=== PATIENT | male | born 1960 | race African-American/Black ===

== ENCOUNTER → 2016-05-05 | Outpatient (CLI) | payer MEDICARE, MEDICAID ==
[~2016-05-05] MED LIST: ALBU17AE23; ASP81CT PO; AZIT-21; CATHETER FLUSH 10 ML SYR IV PRN; ENAL10TA PO; ENAL5TAB; ENLP5T; GLBR5T; GLYB5TAB3; GLYB5TAB6 PO; IOHEXOL 350 MG/ML 100 ML (OMNIPAQUE 350) VIAL IV ONE; LORA10TA2 PO; METF-380 PO; MTF500T; MTF500T PO; NS 100 ML (IVPB) BAG IV ONE; OMEG-12 PO; OMEP40CA36 PO; PROM6.25; SIMV20TA3 PO; WARF6TAB PO; WRF1T; WRF1T PO; WRF5T
--- NOTE | 2016-05-05 16:46 | Diagnostic Imaging Report ---
PROCEDURE: CT abdomen and pelvis with contrast. TECHNIQUE: Multiple contiguous axial images were obtained through the abdomen and pelvis after administration of intravenous contrast. INDICATION: Weight loss. Elevated liver enzymes. 100 mL of Omnipaque 350 is administered intravenously. COMPARISON: 06/21/14. FINDINGS: The lung bases demonstrate no significant consolidation, mass or suspicious nodule. The liver demonstrates a low-attenuation lesion measuring 1.2 cm in central location appears similar to prior exams including CTA chest from 2010 compatible with a cyst. The gallbladder demonstrates no calcified stones. There is a question of minimal amount of fluid adjacent to the gallbladder, however. The urinary bladder is mildly dilated. The kidneys, however, demonstrate no hydronephrosis or focal mass. Simple-appearing cysts in the upper pole of the left kidney about 1 cm in size is seen. The pancreas and the spleen appear unremarkable. The adrenal glands appear unremarkable. There is generally minimal amount of omental and mesenteric fat and small amount of subcutaneous fat in the abdomen. There is moderate amount of fecal material seen in the colon may relate to constipation. There is no bowel obstruction. Decompressed small bowel loops are seen. The osseous structures demonstrate fusion of the SI joints. There is bridging syndesmophytes seen in the lower thoracic spine and slightly prominent syndesmophytes laterally seen in the mid lumbar spine. Mild degenerative changes of the hip joints seen. IMPRESSION: 1. No suspicious mass in the abdomen or pelvis or lymphadenopathy. 2. Moderate amount of fecal material seen in the colon suggestive of constipation. 3. There is mild dilatation of the urinary bladder with no focal mass seen. Dictated by: Dictated on workstation # [id number]
== END ==
LOC: RAD 15:56
PROVIDERS: ATTEND Family Medicine
DX: N32.89 Other specified disorders of bladder (principal); K59.00 Constipation, unspecified; R74.8 Abnormal levels of other serum enzymes; R63.4 Abnormal weight loss
CPT/HCPCS: 74177

== ENCOUNTER 2016-05-17 09:49 | Outpatient (RCR) | payer MEDICARE, MEDICAID ==
[2016-03-02 14:56] LABS: BASOPHILS % (AUTO) 0 % (0-10); EOSINOPHILS % (AUTO) 0 % (0-10); LYMPHOCYTES # (AUTO) 1.1 X 10^3 (1.0-4.0); LYMPHOCYTES % (AUTO) 49 % (12-44); MEAN CORPUSCULAR HEMOGLOBIN 33 PG (25-34); MEAN CORPUSCULAR HGB CONC 35 G/DL (32-36); MEAN CORPUSCULAR VOLUME 96 FL (80-99); MEAN PLATELET VOLUME 8.7 FL (7.4-10.4); MONOCYTES # (AUTO) 0.2 X 10^3 (0.0-1.0); MONOCYTES % (AUTO) 9 % (0-12); NEUTROPHILS % (AUTO) 42 % (42-75); PLATELET COUNT 147 10^3/uL (130-400); RED CELL DISTRIBUTION WIDTH 12.7 % (10.0-14.5); WHITE BLOOD COUNT 2.3 10^3/uL (4.3-11.0)
[2016-03-02 15:26] LABS: ALANINE AMINOTRANSFERASE 45 U/L (0-55); ALBUMIN 4.4 G/DL (3.2-4.5); ANION GAP 7 MMOL/L (5-14); ASPARTATE AMINO TRANSFERASE 30 U/L (5-34); BILIRUBIN,TOTAL 0.2 MG/DL (0.1-1.0); BLOOD UREA NITROGEN 35 MG/DL (7-18); BUN/CREATININE RATIO 29; CALCIUM 9.4 MG/DL (8.5-10.1); CARBON DIOXIDE 29 MMOL/L (21-32); CHLORIDE 104 MMOL/L (98-107); CREATININE SERUM 1.19 MG/DL (0.60-1.30); GFR ESTIMATED > 60; GLUCOSE 102 MG/DL (70-105); POTASSIUM 4.8 MMOL/L (3.6-5.0); SODIUM 140 MMOL/L (135-145); TOTAL PROTEIN 6.7 G/DL (6.4-8.2)
[2016-03-02 16:37] LABS: %SAT TOTAL IRON BINDING CAPIC 24 % (15-50); TIBC 294 ug/dL (280-380)
[2016-03-03 06:35] LABS: FERRITIN 85 ng/mL (25-300); UIBC 222 ug/dL (55-450)
[2016-04-27 14:52] LABS: BASOPHILS % (AUTO) 0 % (0-10); EOSINOPHILS % (AUTO) 1 % (0-10); LYMPHOCYTES % (AUTO) 48 % (12-44); MEAN CORPUSCULAR HEMOGLOBIN 33 PG (25-34); MEAN CORPUSCULAR HGB CONC 34 G/DL (32-36); MEAN CORPUSCULAR VOLUME 97 FL (80-99); MEAN PLATELET VOLUME 8.8 FL (7.4-10.4); MONOCYTES # (AUTO) 0.2 X 10^3 (0.0-1.0); MONOCYTES % (AUTO) 11 % (0-12); NEUTROPHILS # (AUTO) 0.9 X 10^3 (1.8-7.8); NEUTROPHILS % (AUTO) 40 % (42-75); PLATELET COUNT 116 10^3/uL (130-400); RED BLOOD COUNT 3.78 10^6/uL (4.35-5.85); RED CELL DISTRIBUTION WIDTH 12.7 % (10.0-14.5); WHITE BLOOD COUNT 2.1 10^3/uL (4.3-11.0)
[2016-04-27 15:20] LABS: ALANINE AMINOTRANSFERASE 130 U/L (0-55); ALBUMIN 4.2 G/DL (3.2-4.5); ANION GAP 8 MMOL/L (5-14); ASPARTATE AMINO TRANSFERASE 113 U/L (5-34); BILIRUBIN,TOTAL 0.4 MG/DL (0.1-1.0); BLOOD UREA NITROGEN 19 MG/DL (7-18); BUN/CREATININE RATIO 17; CALCIUM 8.8 MG/DL (8.5-10.1); CARBON DIOXIDE 27 MMOL/L (21-32); CHLORIDE 102 MMOL/L (98-107); GFR ESTIMATED > 60; GLUCOSE 103 MG/DL (70-105); POTASSIUM 4.4 MMOL/L (3.6-5.0); SODIUM 137 MMOL/L (135-145); TOTAL PROTEIN 6.5 G/DL (6.4-8.2)
[2016-04-27 15:41] LABS: THYROID STIMULATING HORMONE 0.87 UIU/ML (0.35-4.94)
[2016-05-04 13:47] LABS: BASOPHILS % (AUTO) 1 % (0-10); EOSINOPHILS % (AUTO) 1 % (0-10); LYMPHOCYTES # (AUTO) 1.1 X 10^3 (1.0-4.0); LYMPHOCYTES % (AUTO) 50 % (12-44); MEAN CORPUSCULAR HEMOGLOBIN 33 PG (25-34); MEAN CORPUSCULAR HGB CONC 34 G/DL (32-36); MEAN CORPUSCULAR VOLUME 96 FL (80-99); MEAN PLATELET VOLUME 8.8 FL (7.4-10.4); MONOCYTES # (AUTO) 0.3 X 10^3 (0.0-1.0); MONOCYTES % (AUTO) 12 % (0-12); NEUTROPHILS # (AUTO) 0.8 X 10^3 (1.8-7.8); NEUTROPHILS % (AUTO) 36 % (42-75); PLATELET COUNT 136 10^3/uL (130-400); RED BLOOD COUNT 3.84 10^6/uL (4.35-5.85); RED CELL DISTRIBUTION WIDTH 12.9 % (10.0-14.5); RETICULOCYTE % 0.51 % (0.50-2.40); WHITE BLOOD COUNT 2.1 10^3/uL (4.3-11.0)
[2016-05-04 14:21] LABS: BAND NEUTROPHILS 5 %; LYMPHOCYTES % (MANUAL) 47 %; NEUTROPHILS % (MANUAL) 29 %
[2016-05-04 14:22] LABS: BASOPHILS % (MANUAL) 0 %; EOSINOPHILS % (MANUAL) 4 %; POIKILOCYTOSIS SLIGHT; REACTIVE LYMPHOCYTES 2 %
[~2016-05-17 09:49] MED LIST changes: -CATHETER FLUSH 10 ML SYR IV PRN; -IOHEXOL 350 MG/ML 100 ML (OMNIPAQUE 350) VIAL IV ONE; -NS 100 ML (IVPB) BAG IV ONE
== END 2016-05-31 | disposition home or self-care (01) ==
LOC: ONC 09:49
PROVIDERS: ATTEND Internal Medicine Hematology & Oncology
DX: D64.9 Anemia, unspecified (principal); D72.819 Decreased white blood cell count, unspecified; F70 Mild intellectual disabilities; I10 Essential (primary) hypertension; E11.9 Type 2 diabetes mellitus without complications; J44.9 Chronic obstructive pulmonary disease, unspecified; Z86.718 Personal history of other venous thrombosis and embolism; Z86.711 Personal history of pulmonary embolism; Z79.82 Long term (current) use of aspirin
CPT/HCPCS: 36415; 38221; 80053; 82728; 83540; 84443; 85007; 85025; 85027; 85045; 88184; 88185; 88237; 88264; 88280; 88305; 88311; 88313; 99213

== ENCOUNTER 2016-06-14 09:04 | Outpatient (RCR) | payer MEDICARE, MEDICAID ==
[2016-06-14 09:31] LABS: BASOPHILS % (AUTO) 0 % (0-10); EOSINOPHILS % (AUTO) 1 % (0-10); LYMPHOCYTES % (AUTO) 46 % (12-44); MEAN CORPUSCULAR HGB CONC 34 G/DL (32-36); MEAN CORPUSCULAR VOLUME 97 FL (80-99); MEAN PLATELET VOLUME 8.1 FL (7.4-10.4); MONOCYTES # (AUTO) 0.3 X 10^3 (0.0-1.0); MONOCYTES % (AUTO) 12 % (0-12); NEUTROPHILS # (AUTO) 0.9 X 10^3 (1.8-7.8); NEUTROPHILS % (AUTO) 42 % (42-75); PLATELET COUNT 137 10^3/uL (130-400); RED BLOOD COUNT 3.88 10^6/uL (4.35-5.85); RED CELL DISTRIBUTION WIDTH 12.6 % (10.0-14.5); RETICULOCYTE % 0.52 % (0.50-2.40); WHITE BLOOD COUNT 2.1 10^3/uL (4.3-11.0)
[2016-06-14 09:32] LABS: MEAN CORPUSCULAR HEMOGLOBIN 32 PG (25-34)
[2016-06-14 10:08] LABS: ALANINE AMINOTRANSFERASE 26 U/L (0-55); ALBUMIN 4.1 G/DL (3.2-4.5); ANION GAP 7 MMOL/L (5-14); ASPARTATE AMINO TRANSFERASE 17 U/L (5-34); BILIRUBIN,TOTAL 0.4 MG/DL (0.1-1.0); BLOOD UREA NITROGEN 23 MG/DL (7-18); BUN/CREATININE RATIO 19; CALCIUM 9.4 MG/DL (8.5-10.1); CARBON DIOXIDE 30 MMOL/L (21-32); CHLORIDE 104 MMOL/L (98-107); CREATININE SERUM 1.22 MG/DL (0.60-1.30); GFR ESTIMATED > 60; GLUCOSE 149 MG/DL (70-105); POTASSIUM 4.5 MMOL/L (3.6-5.0); SODIUM 141 MMOL/L (135-145); TOTAL PROTEIN 6.6 G/DL (6.4-8.2)
== END 2016-09-12 | disposition home or self-care (01) ==
LOC: ONC 09:04
PROVIDERS: ATTEND Internal Medicine Hematology & Oncology
DX: D61.818 Other pancytopenia (principal); F70 Mild intellectual disabilities; I10 Essential (primary) hypertension; E11.9 Type 2 diabetes mellitus without complications; J44.9 Chronic obstructive pulmonary disease, unspecified; Z86.718 Personal history of other venous thrombosis and embolism; Z86.711 Personal history of pulmonary embolism; Z79.82 Long term (current) use of aspirin
CPT/HCPCS: 36415; 80053; 82728; 83540; 85025; 85045; 86038; 99213

== ENCOUNTER 2016-09-06 10:15 | Outpatient (RCR) | payer MEDICARE, MEDICAID ==
[2016-09-06 10:24] LABS: BASOPHILS % (AUTO) 0 % (0-10); EOSINOPHILS % (AUTO) 0 % (0-10); LYMPHOCYTES # (AUTO) 1.2 X 10^3 (1.0-4.0); LYMPHOCYTES % (AUTO) 42 % (12-44); MEAN CORPUSCULAR HEMOGLOBIN 32 PG (25-34); MEAN CORPUSCULAR HGB CONC 34 G/DL (32-36); MEAN CORPUSCULAR VOLUME 96 FL (80-99); MEAN PLATELET VOLUME 8.5 FL (7.4-10.4); MONOCYTES # (AUTO) 0.2 X 10^3 (0.0-1.0); MONOCYTES % (AUTO) 8 % (0-12); NEUTROPHILS # (AUTO) 1.4 X 10^3 (1.8-7.8); NEUTROPHILS % (AUTO) 50 % (42-75); PLATELET COUNT 143 10^3/uL (130-400); RED BLOOD COUNT 4.07 10^6/uL (4.35-5.85); RED CELL DISTRIBUTION WIDTH 12.6 % (10.0-14.5); RETICULOCYTE % 0.63 % (0.50-2.40); WHITE BLOOD COUNT 2.8 10^3/uL (4.3-11.0)
[2016-09-06 11:19] LABS: ALANINE AMINOTRANSFERASE 20 U/L (0-55); ALBUMIN 4.2 GM/DL (3.2-4.5); ANION GAP 8 MMOL/L (5-14); ASPARTATE AMINO TRANSFERASE 19 U/L (5-34); BILIRUBIN,TOTAL 0.3 MG/DL (0.1-1.0); BLOOD UREA NITROGEN 26 MG/DL (7-18); BUN/CREATININE RATIO 22; CALCIUM 9.6 MG/DL (8.5-10.1); CARBON DIOXIDE 28 MMOL/L (21-32); CHLORIDE 106 MMOL/L (98-107); CREATININE SERUM 1.17 MG/DL (0.60-1.30); GFR ESTIMATED > 60; GLUCOSE 66 MG/DL (70-105); POTASSIUM 4.6 MMOL/L (3.6-5.0); SODIUM 142 MMOL/L (135-145); TOTAL PROTEIN 7.1 GM/DL (6.4-8.2)
== END 2016-11-20 | disposition home or self-care (01) ==
LOC: ONC 10:15
PROVIDERS: ATTEND Internal Medicine Hematology & Oncology
DX: Z86.718 Personal history of other venous thrombosis and embolism; I10 Essential (primary) hypertension; Z86.711 Personal history of pulmonary embolism; Z79.82 Long term (current) use of aspirin; E11.9 Type 2 diabetes mellitus without complications; J44.9 Chronic obstructive pulmonary disease, unspecified; D72.819 Decreased white blood cell count, unspecified; D64.9 Anemia, unspecified; F70 Mild intellectual disabilities
CPT/HCPCS: 36415; 80053; 82728; 83540; 85025; 85045; 99213

== ENCOUNTER 2016-12-09 13:15 | Outpatient (RCR) | payer MEDICARE, MEDICAID ==
[2016-12-09 13:31] LABS: BASOPHILS % (AUTO) 0 % (0-10); EOSINOPHILS % (AUTO) 1 % (0-10); HEMATOCRIT 34 % (40-54); HEMOGLOBIN 11.9 G/DL (13.3-17.7); LYMPHOCYTES # (AUTO) 1.4 X 10^3 (1.0-4.0); LYMPHOCYTES % (AUTO) 61 % (12-44); MEAN CORPUSCULAR HEMOGLOBIN 33 PG (25-34); MEAN CORPUSCULAR HGB CONC 35 G/DL (32-36); MEAN CORPUSCULAR VOLUME 94 FL (80-99); MEAN PLATELET VOLUME 8.7 FL (7.4-10.4); MONOCYTES # (AUTO) 0.2 X 10^3 (0.0-1.0); MONOCYTES % (AUTO) 7 % (0-12); NEUTROPHILS # (AUTO) 0.7 X 10^3 (1.8-7.8); NEUTROPHILS % (AUTO) 32 % (42-75); PLATELET COUNT 140 10^3/uL (130-400); RED BLOOD COUNT 3.64 10^6/uL (4.35-5.85); RED CELL DISTRIBUTION WIDTH 11.8 % (10.0-14.5); WHITE BLOOD COUNT 2.3 10^3/uL (4.3-11.0)
[2016-12-09 13:50] LABS: ALANINE AMINOTRANSFERASE 124 U/L (0-55); ALBUMIN 3.9 GM/DL (3.2-4.5); ALKALINE PHOSPHATASE 80 U/L (40-136); BILIRUBIN,TOTAL 0.4 MG/DL (0.1-1.0); BUN/CREATININE RATIO 20; CALCIUM 8.8 MG/DL (8.5-10.1); CARBON DIOXIDE 30 MMOL/L (21-32); CHLORIDE 96 MMOL/L (98-107); CREATININE SERUM 0.93 MG/DL (0.60-1.30); GFR ESTIMATED > 60; GLUCOSE 116 MG/DL (70-105); POTASSIUM 4.2 MMOL/L (3.6-5.0); SODIUM 130 MMOL/L (135-145); TOTAL PROTEIN 6.5 GM/DL (6.4-8.2)
== END 2017-03-09 | disposition home or self-care (01) ==
LOC: ONC 13:15
PROVIDERS: ATTEND Internal Medicine Hematology & Oncology
DX: D64.9 Anemia, unspecified (principal); D72.819 Decreased white blood cell count, unspecified; F70 Mild intellectual disabilities; I10 Essential (primary) hypertension; E11.9 Type 2 diabetes mellitus without complications; J44.9 Chronic obstructive pulmonary disease, unspecified; Z86.718 Personal history of other venous thrombosis and embolism; Z86.711 Personal history of pulmonary embolism; Z79.82 Long term (current) use of aspirin; Z79.899 Other long term (current) drug therapy
CPT/HCPCS: 80053; 82728; 83540; 85025; 99213

== ENCOUNTER 2017-05-23 13:46 | Emergency (ER) | payer MEDICARE, MEDICAID ==
[~2017-05-23] VITALS: Ht 170.2 cm; Wt 68.0 kg
[2017-05-23] MEDS ORDERED: LIDOCAINE/EPI 2% 1:100,00 (XYLOCAINE) 20 ML VIAL ONE (13:53)
[2017-05-23] MEDS ORDERED: LIDOCAINE 2% 20 ML (XYLOCAINE) VIAL INJ ONE (14:00)
[2017-05-23] MEDS ORDERED: CHLO473M MM (14:06)
--- NOTE | 2017-05-23 14:06 | ED EENT ---
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 Timing/Duration: abrupt, this morning Severity: mild Location: mouth Associated Symptoms: denies symptoms Allergies and Home Medications Allergies Coded Allergies: NKANo Known Allergies (Unverified Allergy, Mild, 04/11/09) Uncoded Allergies: nka (Allergy, Mild, 04/11/09) Home Medications Aspirin 81 Mg Chew, 81 MG PO DAILY, (Reported) Enalapril Maleate 10 Mg Tablet, 10 MG PO DAILY, (Reported) Glyburide 5 Mg Tablet, 5 MG PO DAILY, (Reported) Loratadine 10 Mg Tablet, 10 MG PO DAILY, (Reported) Metformin Hcl 1,000 Mg Tablet, 1,000 MG PO BID, (Reported) Omeprazole 40 Mg Capsule.dr, 40 MG PO DAILY, (Reported) Simvastatin 20 Mg Tablet, 20 MG PO HS, (Reported) Patient Home Medication List Home Medication List Reviewed: Yes Review of Systems Constitutional: see HPI Eyes: No Symptoms Reported Ears: No Symptoms Reported Nose: no symptoms reported Mouth: see HPI, pain Throat: no symptoms reported Respiratory: no symptoms reported Cardiovascular: no symptoms reported Musculoskeletal: no symptoms reported Past Vmubvgu-Gjworg-Qobowy Hx Patient Social History Recent Foreign Travel: No Contact w/Someone Who Travel: No Immunizations Up To Date Date of Pneumonia Vaccine: Jan 29, 2008 Seasonal Allergies Seasonal Allergies: No Respiratory Respiratory Disorders: Pulmonary Embolism Reproductive System Hx Reproductive Disorders: No Endocrine Endocrine Disorders: Diabetes, Non-Insulin dep Family Medical History Significant Family History: Diabetes, Hypertension Physical Exam General Appearance: WD/WN, no apparent distress Eyes: bilateral eye normal inspection, bilateral eye PERRL, bilateral eye EOMI Ears: bilateral ear auricle normal, bilateral ear canal normal, bilateral ear TM normal Mouth/Throat: other (1 of the wires around the back right tooth on his partial has snagged through the undersurface of the right side of the tongue. This was anesthetized with 1% lidocaine with epinephrine and removed with a forceps.) Neck: non-tender, full range of motion Respiratory: no respiratory distress, no accessory muscle use Neurologic/Psychiatric: alert, normal mood/affect, oriented x 3 Skin: normal color, warm/dry Progress/Results/Core Measures Results/Orders My Orders Orders - KAUSHAL WHITING APRN Lidocaine 2% Injection 20 Ml (Xylocaine (05/23/17 14:00) Lidocaine/Epi 2% 1:100,000 (Xylocaine/Ep (05/23/17 13:53) Departure Communication (Admissions) Progress Notes There was no bleeding after the removal of this partial. Impression Impression: Primary Impression: Puncture wound of tongue Disposition: HOME, SELF-CARE Condition: Stable Departure-Patient Inst. Decision time for Depature: 14:05 Referrals: LE GUEVARA DO (PCP/Family) Primary Care Physician Patient Instructions: NO INSTRUCTIONS GIVEN Add. Discharge Instructions: All discharge instructions reviewed with patient and/or family. Voiced understanding. Scripts Chlorhexidine Gluconate (Chlorhexidine Gluconate) 473 Ml Mouthwash 30 ML MM TID, #473 ML Prov: KAUSHAL WHITING APRN 05/23/17 KAUSHAL WHITING APRN May 23, 2017 14:06
[2017-05-23 14:26] VITALS: BP 128/68
== END 2017-05-23 14:26 | disposition home or self-care (01) ==
LOC: EDUNIT# 13:46 → ER 13:48
DX: S01.532A Puncture wound without foreign body of oral cavity, initial encounter (principal); E11.9 Type 2 diabetes mellitus without complications; I10 Essential (primary) hypertension; Z88.1 Allergy status to other antibiotic agents; Z79.82 Long term (current) use of aspirin; Z79.84 Long term (current) use of oral hypoglycemic drugs; Z86.711 Personal history of pulmonary embolism; W26.8XXA Contact with other sharp object(s), not elsewhere classified, initial encounter

== ENCOUNTER 2017-09-07 14:01 | Outpatient (RCR) | payer MEDICARE, MEDICAID ==
[2017-09-07 14:26] LABS: ABSOLUTE RETIC # 41 10e9/L (24-90); BASOPHILS % (AUTO) 0 % (0-10); EOSINOPHILS % (AUTO) 1 % (0-10); HEMATOCRIT 38 % (40-54); HEMOGLOBIN 13.3 G/DL (13.3-17.7); LYMPHOCYTES # (AUTO) 1.7 X 10^3 (1.0-4.0); LYMPHOCYTES % (AUTO) 53 % (12-44); MEAN CORPUSCULAR HEMOGLOBIN 34 PG (25-34); MEAN CORPUSCULAR HGB CONC 35 G/DL (32-36); MEAN CORPUSCULAR VOLUME 97 FL (80-99); MEAN PLATELET VOLUME 9.2 FL (7.4-10.4); MONOCYTES # (AUTO) 0.2 X 10^3 (0.0-1.0); MONOCYTES % (AUTO) 7 % (0-12); NEUTROPHILS # (AUTO) 1.2 X 10^3 (1.8-7.8); NEUTROPHILS % (AUTO) 40 % (42-75); PLATELET COUNT 135 10^3/uL (130-400); RED BLOOD COUNT 3.95 10^6/uL (4.35-5.85); RED CELL DISTRIBUTION WIDTH 12.6 % (10.0-14.5); RETICULOCYTE % 1.04 % (0.50-2.40); WHITE BLOOD COUNT 3.1 10^3/uL (4.3-11.0)
[2017-09-07 14:44] LABS: ALANINE AMINOTRANSFERASE 21 U/L (0-55); ALBUMIN 4.4 GM/DL (3.2-4.5); ALKALINE PHOSPHATASE 57 U/L (40-136); BILIRUBIN,TOTAL 0.4 MG/DL (0.1-1.0); BUN/CREATININE RATIO 28; CALCIUM 9.5 MG/DL (8.5-10.1); CARBON DIOXIDE 29 MMOL/L (21-32); CHLORIDE 104 MMOL/L (98-107); CREATININE SERUM 1.16 MG/DL (0.60-1.30); GFR ESTIMATED > 60; GLUCOSE 117 MG/DL (70-105); POTASSIUM 4.6 MMOL/L (3.6-5.0); SODIUM 140 MMOL/L (135-145); TOTAL PROTEIN 6.9 GM/DL (6.4-8.2)
== END 2017-09-20 | disposition home or self-care (01) ==
LOC: ONC 14:01
PROVIDERS: ATTEND Internal Medicine Hematology & Oncology
DX: D61.818 Other pancytopenia (principal); F70 Mild intellectual disabilities; I10 Essential (primary) hypertension; E11.9 Type 2 diabetes mellitus without complications; J44.9 Chronic obstructive pulmonary disease, unspecified; R79.89 Other specified abnormal findings of blood chemistry; Z86.718 Personal history of other venous thrombosis and embolism; Z86.711 Personal history of pulmonary embolism; Z79.82 Long term (current) use of aspirin; Z79.899 Other long term (current) drug therapy
CPT/HCPCS: 36415; 80053; 85025; 85045; 99213

== ENCOUNTER → 2017-09-07 | Outpatient (CLI) | payer MEDICARE, MEDICAID ==
[~2017-09-07] MED LIST changes: +CHLO473M MM
== END ==
LOC: LAB 14:06
PROVIDERS: ATTEND Internal Medicine Cardiovascular Disease
DX: D64.9 Anemia, unspecified (principal); I10 Essential (primary) hypertension; E78.2 Mixed hyperlipidemia; D72.819 Decreased white blood cell count, unspecified; Z86.718 Personal history of other venous thrombosis and embolism; Z86.711 Personal history of pulmonary embolism

== ENCOUNTER 2018-05-04 14:59 | Outpatient (RCR) | payer MEDICARE, MEDICAID ==
[2018-03-09 15:29] LABS: ABSOLUTE RETIC # 28 10e9/L (24-90); BASOPHILS % (AUTO) 0 % (0-10); EOSINOPHILS % (AUTO) 1 % (0-10); HEMATOCRIT 37 % (40-54); HEMOGLOBIN 12.5 G/DL (13.3-17.7); LYMPHOCYTES # (AUTO) 1.2 X 10^3 (1.0-4.0); LYMPHOCYTES % (AUTO) 46 % (12-44); MEAN CORPUSCULAR HEMOGLOBIN 33 PG (25-34); MEAN CORPUSCULAR HGB CONC 34 G/DL (32-36); MEAN CORPUSCULAR VOLUME 97 FL (80-99); MEAN PLATELET VOLUME 8.8 FL (7.4-10.4); MONOCYTES # (AUTO) 0.2 X 10^3 (0.0-1.0); MONOCYTES % (AUTO) 7 % (0-12); NEUTROPHILS # (AUTO) 1.2 X 10^3 (1.8-7.8); NEUTROPHILS % (AUTO) 46 % (42-75); PLATELET COUNT 139 10^3/uL (130-400); RETICULOCYTE % 0.75 % (0.50-2.40); WHITE BLOOD COUNT 2.6 10^3/uL (4.3-11.0)
[2018-03-09 15:49] LABS: ALANINE AMINOTRANSFERASE 35 U/L (0-55); ALBUMIN 4.1 GM/DL (3.2-4.5); ALKALINE PHOSPHATASE 64 U/L (40-136); BILIRUBIN,TOTAL 0.5 MG/DL (0.1-1.0); BUN/CREATININE RATIO 19; CARBON DIOXIDE 26 MMOL/L (21-32); CHLORIDE 102 MMOL/L (98-107); CREATININE SERUM 1.24 MG/DL (0.60-1.30); GFR ESTIMATED > 60; GLUCOSE 124 MG/DL (70-105); POTASSIUM 4.3 MMOL/L (3.6-5.0); SODIUM 136 MMOL/L (135-145); TOTAL PROTEIN 6.5 GM/DL (6.4-8.2)
[2018-05-04 15:13] LABS: ABSOLUTE RETIC # 37 10e9/L (24-90); BASOPHILS % (AUTO) 0 % (0-10); EOSINOPHILS % (AUTO) 0 % (0-10); HEMATOCRIT 39 % (40-54); HEMOGLOBIN 13.5 G/DL (13.3-17.7); LYMPHOCYTES # (AUTO) 1.5 X 10^3 (1.0-4.0); LYMPHOCYTES % (AUTO) 53 % (12-44); MEAN CORPUSCULAR HEMOGLOBIN 33 PG (25-34); MEAN CORPUSCULAR HGB CONC 34 G/DL (32-36); MEAN CORPUSCULAR VOLUME 96 FL (80-99); MEAN PLATELET VOLUME 8.6 FL (7.4-10.4); MONOCYTES # (AUTO) 0.2 X 10^3 (0.0-1.0); MONOCYTES % (AUTO) 8 % (0-12); NEUTROPHILS # (AUTO) 1.1 X 10^3 (1.8-7.8); NEUTROPHILS % (AUTO) 39 % (42-75); PLATELET COUNT 148 10^3/uL (130-400); RED CELL DISTRIBUTION WIDTH 11.9 % (10.0-14.5); RETICULOCYTE % 0.91 % (0.50-2.40); WHITE BLOOD COUNT 2.8 10^3/uL (4.3-11.0)
[2018-05-04 15:30] LABS: ALANINE AMINOTRANSFERASE 21 U/L (0-55); ALBUMIN 4.4 GM/DL (3.2-4.5); ALKALINE PHOSPHATASE 62 U/L (40-136); BILIRUBIN,TOTAL 0.4 MG/DL (0.1-1.0); BUN/CREATININE RATIO 22; CALCIUM 9.4 MG/DL (8.5-10.1); CARBON DIOXIDE 29 MMOL/L (21-32); CHLORIDE 101 MMOL/L (98-107); CREATININE SERUM 1.18 MG/DL (0.60-1.30); GFR ESTIMATED > 60; GLUCOSE 118 MG/DL (70-105); POTASSIUM 4.5 MMOL/L (3.6-5.0); SODIUM 138 MMOL/L (135-145); TOTAL PROTEIN 6.9 GM/DL (6.4-8.2)
== END 2018-06-07 | disposition home or self-care (01) ==
LOC: ONC 14:59
PROVIDERS: ATTEND Internal Medicine Hematology & Oncology
DX: D61.818 Other pancytopenia (principal); F70 Mild intellectual disabilities; I10 Essential (primary) hypertension; E11.9 Type 2 diabetes mellitus without complications; J44.9 Chronic obstructive pulmonary disease, unspecified; R79.89 Other specified abnormal findings of blood chemistry; Z86.718 Personal history of other venous thrombosis and embolism; Z86.711 Personal history of pulmonary embolism; Z79.82 Long term (current) use of aspirin; Z79.899 Other long term (current) drug therapy
CPT/HCPCS: 36415; 80053; 85025; 85045; 99213

== ENCOUNTER → 2018-07-28 | Outpatient (CLI) | payer MEDICAID, MEDICARE | LOC: CARD 13:44 | PROVIDERS: ATTEND Internal Medicine Cardiovascular Disease | DX: E11.9 Type 2 diabetes mellitus without complications (principal); R06.02 Shortness of breath; I10 Essential (primary) hypertension; I25.3 Aneurysm of heart; Z86.718 Personal history of other venous thrombosis and embolism; Z86.711 Personal history of pulmonary embolism | CPT/HCPCS: 93306 ==

== ENCOUNTER 2018-08-30 14:44 | Outpatient (RCR) | payer MEDICAID, MEDICARE ==
[2018-08-30 15:31] LABS: BASOPHILS % (AUTO) 0 % (0-10); EOSINOPHILS % (AUTO) 1 % (0-10); HEMATOCRIT 41 % (40-54); HEMOGLOBIN 13.8 G/DL (13.3-17.7); LYMPHOCYTES # (AUTO) 1.5 X 10^3 (1.0-4.0); LYMPHOCYTES % (AUTO) 51 % (12-44); MEAN CORPUSCULAR HEMOGLOBIN 33 PG (25-34); MEAN CORPUSCULAR HGB CONC 34 G/DL (32-36); MEAN CORPUSCULAR VOLUME 97 FL (80-99); MEAN PLATELET VOLUME 8.3 FL (7.4-10.4); MONOCYTES # (AUTO) 0.2 X 10^3 (0.0-1.0); MONOCYTES % (AUTO) 7 % (0-12); NEUTROPHILS # (AUTO) 1.2 X 10^3 (1.8-7.8); NEUTROPHILS % (AUTO) 41 % (42-75); PLATELET COUNT 147 10^3/uL (130-400); RED CELL DISTRIBUTION WIDTH 12.8 % (10.0-14.5); WHITE BLOOD COUNT 2.9 10^3/uL (4.3-11.0)
[2018-08-30 15:51] LABS: ALANINE AMINOTRANSFERASE 25 U/L (0-55); ALBUMIN 4.5 GM/DL (3.2-4.5); ALKALINE PHOSPHATASE 62 U/L (40-136); BILIRUBIN,TOTAL 0.3 MG/DL (0.1-1.0); BUN/CREATININE RATIO 27; CALCIUM 9.9 MG/DL (8.5-10.1); CARBON DIOXIDE 28 MMOL/L (21-32); CHLORIDE 104 MMOL/L (98-107); CREATININE SERUM 1.02 MG/DL (0.60-1.30); GFR ESTIMATED > 60; GLUCOSE 107 MG/DL (70-105); POTASSIUM 4.4 MMOL/L (3.6-5.0); SODIUM 142 MMOL/L (135-145); TOTAL PROTEIN 7.1 GM/DL (6.4-8.2)
== END 2018-11-28 | disposition home or self-care (01) ==
LOC: ONC 14:44
PROVIDERS: ATTEND Internal Medicine Hematology & Oncology
DX: D61.818 Other pancytopenia (principal); F70 Mild intellectual disabilities; I10 Essential (primary) hypertension; E11.9 Type 2 diabetes mellitus without complications; J44.9 Chronic obstructive pulmonary disease, unspecified; R79.89 Other specified abnormal findings of blood chemistry; Z86.718 Personal history of other venous thrombosis and embolism; Z86.711 Personal history of pulmonary embolism; Z79.82 Long term (current) use of aspirin; Z79.899 Other long term (current) drug therapy
CPT/HCPCS: 36415; 80053; 85025; 99213

== ENCOUNTER 2018-11-29 14:31 | Outpatient (RCR) | payer MEDICAID ==
[2018-11-29 14:46] LABS: BASOPHILS % (AUTO) 0 % (0-10); EOSINOPHILS % (AUTO) 1 % (0-10); HEMATOCRIT 40 % (40-54); HEMOGLOBIN 13.6 G/DL (13.3-17.7); LYMPHOCYTES # (AUTO) 1.4 X 10^3 (1.0-4.0); LYMPHOCYTES % (AUTO) 48 % (12-44); MEAN CORPUSCULAR HEMOGLOBIN 33 PG (25-34); MEAN CORPUSCULAR HGB CONC 34 G/DL (32-36); MEAN CORPUSCULAR VOLUME 97 FL (80-99); MEAN PLATELET VOLUME 8.8 FL (7.4-10.4); MONOCYTES # (AUTO) 0.2 X 10^3 (0.0-1.0); MONOCYTES % (AUTO) 8 % (0-12); NEUTROPHILS # (AUTO) 1.3 X 10^3 (1.8-7.8); NEUTROPHILS % (AUTO) 44 % (42-75); PLATELET COUNT 140 10^3/uL (130-400); RED CELL DISTRIBUTION WIDTH 13.2 % (10.0-14.5)
[2018-11-29 15:07] LABS: ALANINE AMINOTRANSFERASE 28 U/L (0-55); ALBUMIN 4.4 GM/DL (3.2-4.5); ALKALINE PHOSPHATASE 59 U/L (40-136); BILIRUBIN,TOTAL 0.3 MG/DL (0.1-1.0); BUN/CREATININE RATIO 19; CARBON DIOXIDE 28 MMOL/L (21-32); CHLORIDE 104 MMOL/L (98-107); CREATININE SERUM 1.09 MG/DL (0.60-1.30); GFR ESTIMATED > 60; GLUCOSE 121 MG/DL (70-105); POTASSIUM 4.5 MMOL/L (3.6-5.0); SODIUM 141 MMOL/L (135-145); TOTAL PROTEIN 7.3 GM/DL (6.4-8.2)
[2019-01-25] MEDS ORDERED: OMEP20CA13 PO (11:53)
[2019-02-22] MEDS ORDERED: OMG1KC PO (09:57)
[2019-02-22] MEDS ORDERED: ACET-93 PO (09:57)
[2019-02-22] MEDS ORDERED: MULT-345 PO (09:57)
[2019-02-22] MEDS ORDERED: FE F1CAP9 PO (09:57)
[2019-02-22] MEDS ORDERED: LORA10TA7 PO (09:57)
[2019-02-22] MEDS ORDERED: OMEP40CA36 PO (09:57)
[2019-02-22] MEDS ORDERED: FLUT9.9S NS (09:57)
[2019-02-22] MEDS ORDERED: MAGN400O7 PO (09:57)
[2019-02-22] MEDS ORDERED: ASPI-586 PO (09:57)
== END 2019-02-27 | disposition home or self-care (01) ==
LOC: ONC 14:31
PROVIDERS: ATTEND Internal Medicine Hematology & Oncology
DX: D61.818 Other pancytopenia (principal); F70 Mild intellectual disabilities; I10 Essential (primary) hypertension; E11.9 Type 2 diabetes mellitus without complications; J44.9 Chronic obstructive pulmonary disease, unspecified; D72.819 Decreased white blood cell count, unspecified; R79.89 Other specified abnormal findings of blood chemistry; D64.9 Anemia, unspecified; Z86.718 Personal history of other venous thrombosis and embolism; Z86.711 Personal history of pulmonary embolism; Z79.82 Long term (current) use of aspirin; Z79.899 Other long term (current) drug therapy
CPT/HCPCS: 36415; 80053; 82728; 83540; 85025; 99213

== ENCOUNTER 2019-01-25 08:02 | Emergency (ER) | payer MEDICARE, MEDICAID ==
[~2019-01-25] VITALS: Ht 157 cm; Wt 72.7 kg
[~2019-01-25 08:02] MED LIST changes: -CHLO473M MM; +NFCHLORHGL MM
[2019-01-25] MEDS ORDERED: ASPIRIN 81 MG CHEW (CHILDREN'S ASA) ONE (08:09)
[2019-01-25] MEDS ORDERED: LIDOCAINE 2% VISCOUS 15 ML UDC PO ONE (08:15)
[2019-01-25] MEDS ORDERED: ANTACID SUSP 30 ML UDC (MYLANTA) PO ONE (08:15)
[2019-01-25] MEDS ORDERED: ASPIRIN 81 MG CHEW (CHILDREN'S ASA) PO ONE (08:15)
[2019-01-25 08:19] LABS: BASOPHILS % (AUTO) 0 % (0-10); EOSINOPHILS % (AUTO) 1 % (0-10); HEMATOCRIT 37 % (40-54); HEMOGLOBIN 13.1 G/DL (13.3-17.7); LYMPHOCYTES # (AUTO) 1.2 X 10^3 (1.0-4.0); LYMPHOCYTES % (AUTO) 54 % (12-44); MEAN CORPUSCULAR HEMOGLOBIN 33 PG (25-34); MEAN CORPUSCULAR HGB CONC 35 G/DL (32-36); MEAN CORPUSCULAR VOLUME 94 FL (80-99); MEAN PLATELET VOLUME 8.3 FL (7.4-10.4); MONOCYTES # (AUTO) 0.2 X 10^3 (0.0-1.0); MONOCYTES % (AUTO) 10 % (0-12); NEUTROPHILS # (AUTO) 0.8 X 10^3 (1.8-7.8); NEUTROPHILS % (AUTO) 35 % (42-75); PLATELET COUNT 132 10^3/uL (130-400); RED CELL DISTRIBUTION WIDTH 12.3 % (10.0-14.5); WHITE BLOOD COUNT 2.2 10^3/uL (4.3-11.0)
[2019-01-25 08:28] LABS: PROTHROMBIN TIME PATIENT 13.8 SEC (12.2-14.7)
[2019-01-25 08:33] LABS: ALANINE AMINOTRANSFERASE 25 U/L (0-55); ALKALINE PHOSPHATASE 58 U/L (40-136); BILIRUBIN,TOTAL 0.6 MG/DL (0.1-1.0); BUN/CREATININE RATIO 21; CALCIUM 8.9 MG/DL (8.5-10.1); CARBON DIOXIDE 25 MMOL/L (21-32); CHLORIDE 99 MMOL/L (98-107); CREATININE SERUM 1.06 MG/DL (0.60-1.30); GFR ESTIMATED > 60; GLUCOSE 125 MG/DL (70-105); LIPASE 13 U/L (8-78); MAGNESIUM 1.6 MG/DL (1.6-2.4); POTASSIUM 4.1 MMOL/L (3.6-5.0); SODIUM 135 MMOL/L (135-145); TOTAL PROTEIN 6.3 GM/DL (6.4-8.2)
--- NOTE | 2019-01-25 08:58 | Diagnostic Imaging Report ---
Clinical indications: Patient with chest pain. Comparison: None Procedure: Real-time right lower extremity venous Doppler duplex evaluation is performed from the inguinal region through the popliteal fossa. The calf venous structures are also evaluated. Findings: The deep venous system is well visualized and is easily compressible. There is no evidence of deep venous thrombosis, valvular incompetence, or significant collateral circulation. Impression: There is no ultrasound Doppler evidence of deep venous thrombosis in the right lower extremity. Dictated by: Dictated on workstation # [id number]
--- NOTE | 2019-01-25 09:09 | Diagnostic Imaging Report ---
INDICATION: Chest pain. Portable upright AP view of the chest is obtained. Comparison is made to examination of 06/26/2014. Heart size and pulmonary vascularity are within normal limits. There is no evidence of pneumothorax or consolidation. There is an approximately 1 cm nodular density projecting over lower chest bilaterally. The symmetry suggests nipple shadows. IMPRESSION: No acute abnormality is identified. Subsequent chest radiographs could be performed with nipple markers in place. Dictated by: Dictated on workstation # [id number]
--- NOTE | 2019-01-25 09:30 | ED Chest Pain ---
General Chief Complaint: Chest Pain Stated Complaint: CHEST PAIN Nursing Triage Note: pt presents to ed with complaints of medial chest tightness, lightheadedness, and soa starting at 0700 this am. Nursing Sepsis Screen: No Definite Risk Source: patient, caregiver Exam Limitations: no limitations (INDIO GONZALEZ MD) History of Present Illness Date Seen by Provider: Jan 25, 2019 Time Seen by Provider: 09:25 Initial Comments The patient is a 58-year-old black male known to me from previous contact in the emergency room. He lives in a shelter as he is intellectually challenged. This morning he got up and told his supervisors that he felt dizzy and had chest pain. He has a rather considerable chart on the basis of long-standing neutropenia. He has also been worked up for chest pain and pulmonary embolus without definitive findings. He reports that he continues to have pain here after arrival. He looks calm and collected. He is a vague historian. Timing/Duration: 1-3 hours Severity/Quality: mild, moderate Location: central Activities at Onset: none Modifying Factors: improves with antacids, improves with coughing Associated Symptoms: dizziness, shortness of breath (INDIO GONZALEZ MD) Allergies and Home Medications Allergies Coded Allergies: NKANo Known Allergies (Unverified Allergy, Mild, 04/11/09) Uncoded Allergies: nka (Allergy, Mild, 04/11/09) Home Medications Aspirin 81 Mg Chew, 81 MG PO DAILY, (Reported) Chlorhexidine Gluconate 473 Ml Mouthwash, 30 ML MM TID Prescribed by: KAUSHAL WHITING on 05/23/17 1406 Enalapril Maleate 10 Mg Tablet, 10 MG PO DAILY, (Reported) Glyburide 5 Mg Tablet, 5 MG PO DAILY, (Reported) Loratadine 10 Mg Tablet, 10 MG PO DAILY, (Reported) Metformin Hcl 1,000 Mg Tablet, 1,000 MG PO BID, (Reported) Omeprazole 40 Mg Capsule.dr, 40 MG PO DAILY, (Reported) Simvastatin 20 Mg Tablet, 20 MG PO HS, (Reported) Patient Home Medication List Home Medication List Reviewed: Yes (PATRICIA DURHAM MD) Review of Systems Review of Systems Constitutional: see HPI Respiratory: Cough, Shortness of Air Cardiovascular: See HPI, Chest Pain Gastrointestinal: No Symptoms Reported Musculoskeletal: other (leg pain more so on the right) Skin: no symptoms reported Psychiatric/Neurological: No Symptoms Reported Endocrine: No Symptoms Reported (INDIO GONZALEZ MD) Past Lnvtrmy-Aunpok-Emwczm Hx Patient Social History Alcohol Use: Denies Use Recreational Drug Use: No Smoking Status: Former Smoker Former Smoker, Quit: Feb 11, 2015 Recent Foreign Travel: No Contact w/Someone Who Travel: No Recent Infectious Disease Expo: No Recent Hopitalizations: No Physical Abuse: No Sexual Abuse: No Mistreated: No Fear: No (INDIO GONZALEZ MD) Immunizations Up To Date Date of Pneumonia Vaccine: Jan 29, 2008 (INDIO GONZALEZ MD) Seasonal Allergies Seasonal Allergies: No (INDIO GONZALEZ MD) Past Medical History Surgeries: No (unk) Respiratory: Yes Pulmonary Embolism Cardiac: Yes Hypertension Neurological: No Reproductive Disorders: No Genitourinary: No Gastrointestinal: Yes Gastroesophageal Reflux Musculoskeletal: No Endocrine: Yes Diabetes, Non-Insulin dep Cancer: No Psychosocial: No Integumentary: No Blood Disorders: Yes (anemia) (INDIO GONZALEZ MD) Family Medical History Diabetes, Hypertension (INDIO GONZALEZ MD) Physical Exam Vital Signs Vital Signs - First Documented 01/25/19 08:14 Temp 36.4 Pulse 62 Resp 20 B/P (MAP) 127/80 (96) Pulse Ox 100 O2 Delivery Room Air (PATRICIA DURHAM MD) Vital Signs Capillary Refill : Less Than 3 Seconds (INDIO GONZALEZ MD) Height, Weight, BMI Height: 5'7.00" Weight: 150lbs. oz. 68.008240aw; 29.00 BMI Method:Stated General Appearance: No Apparent Distress, WD/WN HEENT: Normal ENT Inspection Neck: Normal Inspection Respiratory: Chest Non Tender, Lungs Clear, Normal Breath Sounds, No Accessory Muscle Use, No Respiratory Distress Cardiovascular: Regular Rate, Rhythm, No Edema, No Gallop, No JVD, No Murmur, Normal Peripheral Pulses Gastrointestinal: Normal Bowel Sounds, No Organomegaly, No Pulsatile Mass, Non Tender Extremity: Normal Capillary Refill, Normal Inspection, Normal Range of Motion, Non Tender, No Calf Tenderness, No Pedal Edema Neurologic/Psychiatric: Alert, Oriented x3, No Motor/Sensory Deficits, Normal Mood/Affect Skin: Normal Color, Warm/Dry Lymphatic: No Adenopathy (INDIO GONZALEZ MD) Progress/Results/Core Measures Results/Orders Lab Results Laboratory Tests Test 01/25/19 08:09 01/25/19 10:54 Range/Units White Blood Count 2.2 L 4.3-11.0 10^3/uL Red Blood Count 3.97 L 4.35-5.85 10^6/uL Hemoglobin 13.1 L 13.3-17.7 G/DL Hematocrit 37 L 40-54 % Mean Corpuscular Volume 94 80-99 FL Mean Corpuscular Hemoglobin 33 25-34 PG Mean Corpuscular Hemoglobin Concent 35 32-36 G/DL Red Cell Distribution Width 12.3 10.0-14.5 % Platelet Count 132 130-400 10^3/uL Mean Platelet Volume 8.3 7.4-10.4 FL Neutrophils (%) (Auto) 35 L 42-75 % Lymphocytes (%) (Auto) 54 H 12-44 % Monocytes (%) (Auto) 10 0-12 % Eosinophils (%) (Auto) 1 0-10 % Basophils (%) (Auto) 0 0-10 % Neutrophils # (Auto) 0.8 L 1.8-7.8 X 10^3 Lymphocytes # (Auto) 1.2 1.0-4.0 X 10^3 Monocytes # (Auto) 0.2 0.0-1.0 X 10^3 Eosinophils # (Auto) 0.0 0.0-0.3 10^3/uL Basophils # (Auto) 0.0 0.0-0.1 10^3/uL Prothrombin Time 13.8 12.2-14.7 SEC INR Comment 1.0 0.8-1.4 Activated Partial Thromboplast Time 39 H 24-35 SEC D-Dimer < 0.27 0.00-0.49 UG/ML Sodium Level 135 135-145 MMOL/L Potassium Level 4.1 3.6-5.0 MMOL/L Chloride Level 99 98-107 MMOL/L Carbon Dioxide Level 25 21-32 MMOL/L Anion Gap 11 5-14 MMOL/L Blood Urea Nitrogen 22 H 7-18 MG/DL Creatinine 1.06 0.60-1.30 MG/DL Estimat Glomerular Filtration Rate > 60 BUN/Creatinine Ratio 21 Glucose Level 125 H 70-105 MG/DL Calcium Level 8.9 8.5-10.1 MG/DL Corrected Calcium 8.9 8.5-10.1 MG/DL Magnesium Level 1.6 1.6-2.4 MG/DL Total Bilirubin 0.6 0.1-1.0 MG/DL Aspartate Amino Transf (AST/SGOT) 23 5-34 U/L Alanine Aminotransferase (ALT/SGPT) 25 0-55 U/L Alkaline Phosphatase 58 40-136 U/L Myoglobin 47.2 10.0-92.0 NG/ML Troponin I < 0.028 < 0.028 <0.028 NG/ML Total Protein 6.3 L 6.4-8.2 GM/DL Albumin 4.0 3.2-4.5 GM/DL Lipase 13 8-78 U/L (PATRICIA DURHAM MD) My Orders Orders - PATRICIA DURHAM MD Aspirin Chewable Tablet (Baby Aspirin Ch (01/25/19 08:09) Lidocaine 2% Viscous 15 Ml (Xylocaine Vi (01/25/19 08:15) Antacid Suspension (Mylanta Suspension (01/25/19 08:15) Cbc With Automated Diff (01/25/19 08:09) Magnesium (01/25/19 08:09) Chest 1 View, Ap/Pa Only (01/25/19 08:09) Ekg Tracing (01/25/19 08:09) Comprehensive Metabolic Panel (01/25/19 08:09) Myoglobin Serum (01/25/19 08:09) Protime With Inr (01/25/19 08:09) Partial Thromboplastin Time (01/25/19 08:09) O2 (01/25/19 08:09) Monitor-Rhythm Ecg Trace Only (01/25/19 08:09) Lipid Panel (01/26/19 06:00) Ed Iv/Invasive Line Start (01/25/19 08:09) Lipase (01/25/19 08:09) Fibrin Degradation Products (01/25/19 08:09) Troponin I (01/25/19 08:09) Aspirin Chewable Tablet (Baby Aspirin Ch (01/25/19 08:15) Us Venous Lower Ext Rt (01/25/19 08:09) Troponin I (01/25/19 10:52) (PATRICIA DURHAM MD) Medications Given in ED Current Medications Medications Dose Ordered Sig/Devan Route Start Time Stop Time Status Last Admin Dose Admin Al Hydrox/Mg Hydrox/Simethicone 30 ml ONCE ONCE PO 01/25/19 08:15 01/25/19 08:16 DC 01/25/19 09:10 30 ML Aspirin 324 mg ONCE ONCE PO 01/25/19 08:15 01/25/19 08:16 DC 01/25/19 08:24 324 MG Lidocaine HCl 15 ml ONCE ONCE PO 01/25/19 08:15 01/25/19 08:16 DC 01/25/19 09:10 15 ML (PATRICIA DURHAM MD) Vital Signs/I&O 01/25/19 01/25/19 08:14 08:14 Temp 36.4 Pulse 62 Resp 20 B/P (MAP) 127/80 (96) Pulse Ox 100 O2 Delivery Room Air (PATRICIA DURHAM MD) Blood Pressure Mean: 96 POS Progress Progress Note : Progress Note Assumed care from Dr. GONZALEZ at 1050: I did see the patient earlier as well. Overall he is doing much better. Repeat troponin was ordered. He has no pain currently. 1145: I did discuss at length with the patient and his care workers. He is still resolved. He was previously on omeprazole for reflux problems and the symptoms more likely to involve that as a concern as the heart stuff seems to be negative at this point. I do believe he needs to follow up with Dr. Guevara for recheck and further evaluation as well as Dr. Huerta. They will set up appointment with Dr. Guevara who can then further consult as needed. I will write for 1 month of omeprazole daily and then Dr. Guevara can decide from there he needs to do more. Discharged home with return precautions. Patient and care workers verbalize understanding instructions and agreement with plan. (PATRICIA DURHAM MD) Diagnostic Imaging Diagonstic Imaging: Xray Plain Films/CT/US/NM/MRI: chest Comments [facility], [facility]. POS [place], [place] POS NAME: RICARDO [facility] REC#: [id number] PT STATUS: REG ER : 1960 PHYSICIAN: PATRICIA DURHAM MD ADMIT DATE: 01/25/19/ER Draft POSDate of Exam:01/25/19 CHEST 1 VIEW, AP/PA ONLY INDICATION: Chest pain. Portable upright AP view of the chest is obtained. Comparison is made to examination of 06/26/2014. Heart size and pulmonary vascularity are within normal limits. There is no evidence of pneumothorax or consolidation. There is an approximately 1 cm nodular density projecting over lower chest bilaterally. The symmetry suggests nipple shadows. IMPRESSION: No acute abnormality is identified. Subsequent chest radiographs could be performed with nipple markers in place. Dictated on workstation # [id number] Dict: 01/25/19 0859 Trans: 01/25/19 0908 CVB [id number] Interpreted by: JOHNATHON LAWLER MD Electronically signed by: Diagonstic Imaging: Ultrasound Plain Films/CT/US/NM/MRI: leg Comments [facility], [facility]. POS [place], [place] POS NAME: RICARDO [facility] REC#: [id number] PT STATUS: REG ER : 1960 PHYSICIAN: PATRICIA DURHAM MD ADMIT DATE: 01/25/19/ER Draft POSDate of Exam:01/25/19 US VENOUS LOWER EXT RT Clinical indications: Patient with chest pain. Comparison: None Procedure: Real-time right lower extremity venous Doppler duplex evaluation is performed from the inguinal region through the popliteal fossa. The calf venous structures are also evaluated. Findings: The deep venous system is well visualized and is easily compressible. There is no evidence of deep venous thrombosis, valvular incompetence, or significant collateral circulation. Impression: There is no ultrasound Doppler evidence of deep venous thrombosis in the right lower extremity. Dictated on workstation # [id number] Dict: 01/25/19 0855 Trans: 01/25/19 0857 CVB [id number] Interpreted by: NASIMA SINCLAIR MD Electronically signed by: (PATRICIA DURHAM MD) Departure Impression Primary Impression: Chest pain Qualified Codes: R07.9 - Chest pain, unspecified Additional Impression: Epigastric abdominal pain Disposition: 01 HOME, SELF-CARE Condition: Improved Departure-Patient Inst. Decision time for Depature: 11:50 (PATRICIA DURHAM MD) Referrals: LE GUEVARA DO (PCP/Family) Primary Care Physician ARLEY HUERTA MD Patient Instructions: Chest Pain (DC), Acute Abdomen (Belly Pain), Adult (DC) Add. Discharge Instructions: All discharge instructions reviewed with patient and/or family. Voiced understanding. Take medications as directed. Follow-up with Dr. Guevara this week for recheck and further evaluation. Follow-up with Dr. Huerta within the next week for recheck and further evaluation. Return for worse pain, fever, vomiting, weakness, breathing problems or other concerns as needed. Scripts Omeprazole (Omeprazole) 20 Mg Capsule. 20 MG PO DAILY for 30 Days, #30 CAP 0 Refills Prov: PATRICIA DURHAM MD 01/25/19 Copy Copies To 1: LE GUEVARA RODNEY K MD Jan 25, 2019 09:30 PATRICIA GREEN MD Jan 25, 2019 10:49 POS
[2019-01-25] MEDS ORDERED: OMEP-280 PO (11:53)
[2019-01-25 12:19] VITALS: BP 131/84
--- OUTSIDE RECORDS SUMMARY | 2019-02-20 05:52 | XMS REPORT ---
Author Author Evelin LEE Organization [facility] Address [address] [place] [address] Care Team Providers Care Surgical Pathologist Name Role Phone MILAD LEE Unavailable PROBLEMS Unknown Problems ALLERGIES No Information ENCOUNTERS Encounter Location Date Diagnosis [facility] [address] [id number] [address] [place] [address] [id number] Sep, Dental examination Z01.20 [facility] [address] [id number] [address] [place] [address] [phone] June, Dental examination Z01.20 [facility] [address] [id number] [address] [place] [address] [id number] June, Dental examination Z01.20 [facility] [address] [id number] [address] [place] [address] [id number] May, Dental examination Z01.20 [facility] [address] [id number] [address] [place] [address] [id number] May, Dental examination Z01.20 [facility] [address] [id number] [address] [place] [address] [id number] Feb, Encounter for dental exam an d cleaning w/o abnormal findings Z01.20 [facility] [address] [id number] [address] [place] [address] [id number] Feb, Dental examination Z01.20 [facility] [address] [id number] [address] [place] [address] [id number] Oct, Encounter for dental examina tion and cleaning without abnormal findings [facility]01[facility] [address] [id number] [phone] Sep, Encounter for dental examination Z01.20 [facility] [address] [id number] [address] [place] [address] [id number] Jul, Encounter for dental examina tion and cleaning without abnormal findings Z01.20 [facility] [address] [id number] [address] [place] [address] [id number] Apr, Encounter for dental examina tion and cleaning without abnormal findings Z01.[address] [id number] [id number] Jan, Dental examination Z01.20 [facility] [address] [id number] [address] [place] [address] [id number] Jan, Encounter for dental examina tion and cleaning without abnormal findings Z01.20 [facility] [address] [id number] [address] [place] [address] [id number] Sep, Encounter for dental examina tion and cleaning without abnormal findings Z01.20 [facility] [address] [id number] [address] [place] [address] [phone] May, Encounter for dental examina tion and cleaning with abnormal findings Z01.[address] [id number] [phone] May, Dental examination Z01.20 IMMUNIZATIONS No Known Immunizations SOCIAL HISTORY Never Assessed REASON FOR VISIT seat partial PLAN OF CARE Activity Details Follow Up prn Reason:CHRIS or adj VITAL SIGNS MEDICATIONS Medication Instructions Dosage Frequency Start Date End Date Duration S min Villeda Active Fish Oil 1000 MG Orally Once a day 1 capsule 24h Active Loratadine 10 MG/10ML Orally Once a day 10 ml 24h Active Omeprazole 40 MG Orally Once a day 1 capsule 24h Active Aspirin Active Benzonatate 200 MG Orally Three times a day 1 capsule 8h Active Simvastatin 20 MG Orally Once a day 1 tablet in the evening 24h Active Ferrous Sulfate 325 MG A ctive Prilosec 40 MG Orally Once a day 1 capsule 24h Active Metformin HCl 500 MG Orally Twice a day 1 tablet with meals 12h Active Enalapril Maleate 10 MG Orally Once a day 1 tablet 24h Active RESULTS No Results PROCEDURES Procedure Date Ordered Result Body Site Dental no charge July 15, 2017 INSTRUCTIONS MEDICATIONS ADMINISTERED No Known Medications MEDICAL (GENERAL) HISTORY Type Description Date Medical History [facility]
--- OUTSIDE RECORDS SUMMARY | 2019-02-20 05:52 | XMS REPORT ---
Author Author Evelin LEE Organization [facility] Address [address] [place] [address] Care Team Providers Care Mixed Crop Farmer Name Role Phone MILAD LEE Unavailable PROBLEMS Unknown Problems ALLERGIES No Known Allergies ENCOUNTERS Encounter Location Date Diagnosis [facility] [address] [id number] [address] [place] [address] [phone] Sep, Dental examination Z01.20 [facility] [address] [id number] [address] [place] [address] [phone] June, Dental examination Z01.20 [facility] [address] [id number] [place] [address] [phone] June, Dental examination Z01.20 [facility] [address] [id number] [address] [place] [address] [phone] May, Dental examination Z01.20 [facility] [address] [id number] [address] [place] [address] [phone] May, Dental examination Z01.20 [facility] [address] [id number] [address] [place] [address] [phone] Feb, Encounter for dental exam an d cleaning w/o abnormal findings Z01.20 [facility] [address] [id number] [address] [place] [address] [phone] Feb, Dental examination Z01.20 [facility] [address] [id number] [address] [place] [address] [phone] Oct, Encounter for dental examina tion and cleaning without abnormal findings [facility]01.20 [facility] [address] [id number] [phone] Sep, Encounter for dental examination Z01.20 [facility] [address] [id number] [address] [place] [address] [phone] Jul, Encounter for dental examina tion and cleaning without abnormal findings Z01.20 [facility] [address] [id number] [address] [place] [address] [phone] Apr, Encounter for dental examina tion and cleaning without abnormal findings Z01.[address] [id number] [place] [phone] Jan, Dental examination Z01.20 [facility] [address] [id number] [address] [place] [address] [phone] Jan, Encounter for dental examina tion and cleaning without abnormal findings Z01.20 [facility] [address] [id number] [address] [place] [address] [phone] Sep, Encounter for dental examina tion and cleaning without abnormal findings Z01.20 [facility] [address] [id number] [address] [place] [address] [phone] May, Encounter for dental examina tion and cleaning with abnormal findings Z01.[address] [id number] [place] [phone] May, Dental examination Z01.20 IMMUNIZATIONS No Known Immunizations SOCIAL HISTORY Never Assessed REASON FOR VISIT TRY IN PLAN OF CARE Activity Details Follow Up 2 Weeks Reason:partial seat VITAL SIGNS MEDICATIONS Medication Instructions Dosage Frequency Start Date End Date Duration S tatus Benzonatate 200 MG Orally Three times a day 1 capsule 8h Active Ferrous Sulfate 325 MG A ctive Simvastatin 20 MG Orally Once a day 1 tablet in the evening 24h Active Fish Oil 1000 MG Orally Once a day 1 capsule 24h Active Prilosec 40 MG Orally Once a day 1 capsule 24h Active Omeprazole 40 MG Orally Once a day 1 capsule 24h Active Flonase Active Aspirin Active Metformin HCl 500 MG Orally Twice a day 1 tablet with meals 12h Active Enalapril Maleate 10 MG Orally Once a day 1 tablet 24h Active Loratadine 10 MG/10ML Orally Once a day 10 ml 24h Active RESULTS No Results PROCEDURES Procedure Date Ordered Result Body Site Dental no charge July 01, 2017 INSTRUCTIONS MEDICATIONS ADMINISTERED No Known Medications MEDICAL (GENERAL) HISTORY Type Description Date Medical History [facility]
--- OUTSIDE RECORDS SUMMARY | 2019-02-20 05:52 | XMS REPORT ---
Author Author Evelin TORREZ Organization [facility] Address [address] [place] [address] Phone Unavailable Care Team Providers Care Kitchen Stewardess Name Role Phone LEO TORREZ Unavailable Unavailable PROBLEMS Unknown Problems ALLERGIES No Known Allergies ENCOUNTERS Encounter Location Date Diagnosis [facility] [address] [id number] [phone] Sep, [facility] [id number] [place] [address] [phone] June, Dental examination Z01.20 [facility] [address] [id number] [place] [address] [phone] June, Dental examination Z01.20 [facility] [address] [id number] [address] [place] [address] [phone] May, Dental examination Z01.20 [facility] [address] [id number] [place] [address] [phone] May, Dental examination Z01.20 [facility] [address] [id number] [place] [address] [phone] Feb, Encounter for dental exam an d cleaning w/o abnormal findings Z01.20 [facility] [address] [id number] [address] [place] [address] [phone] Feb, Dental examination Z01.20 [facility] [address] [id number] [address] [place] [address] [phone] Oct, Encounter for dental examina tion and cleaning without abnormal findings [facility]01.20 [facility] [address] [id number] [phone] Sep, Encounter for dental examination Z01.20 [facility] [address] [id number] [address] [place] [address] [phone] Jul, Encounter for dental examina tion and cleaning without abnormal findings Z01.20 [facility] [address] [id number] [address] [place] [address] [phone] Apr, Encounter for dental examina tion and cleaning without abnormal findings Z01.20 [facility] [address] [id number] [address] [place] [address] [phone] Jan, Encounter for dental examina tion and cleaning without abnormal findings Z01.20 [place] [address] [facility] [address] [id number] [phone] Jan, Dental examination Z01.20 [facility] [address] [id number] [address] [place] [address] [phone] Sep, Encounter for dental examina tion and cleaning without abnormal findings Z01.20 [facility] [address] [id number] [address] [place] [address] [phone] May, Encounter for dental examina tion and cleaning with abnormal findings Z01.21 [facility] [address] [facility] [address] [id number] [phone] May, Dental examination Z01.20 IMMUNIZATIONS No Known Immunizations SOCIAL HISTORY Never Assessed REASON FOR VISIT PLAN OF CARE Activity Details Follow Up prn Reason: VITAL SIGNS MEDICATIONS Medication Instructions Dosage Frequency Start Date End Date Duration S tatus Benzonatate 200 MG Orally Three times a day 1 capsule 8h Active Simvastatin 20 MG Orally Once a day 1 tablet in the evening 24h Active Omeprazole 40 MG Orally Once a day 1 capsule 24h Active Loratadine 10 MG/10ML Orally Once a day 10 ml 24h Active Prilosec 40 MG Orally Once a day 1 capsule 24h Active Ferrous Sulfate 325 MG A ctive Enalapril Maleate 10 MG Orally Once a day 1 tablet 24h Active Fish Oil 1000 MG Orally Once a day 1 capsule 24h Active Metformin HCl 500 MG Orally Twice a day 1 tablet with meals 12h Active Aspirin Active Flonase Active RESULTS No Results PROCEDURES Procedure Date Ordered Result Body Site PROPHYLAXIS - ADULT June 08, 2017 TOPICAL FLUORIDE VARNISH June 08, 2017 INSTRUCTIONS MEDICATIONS ADMINISTERED No Known Medications MEDICAL (GENERAL) HISTORY Type Description Date Medical History [facility]
--- OUTSIDE RECORDS SUMMARY | 2019-02-20 05:52 | XMS REPORT ---
Author Author Evelin SimpsonDIANAJonathan Organization [facility] Address [address] [place] [address] Care Team Providers Care Pump House Technician Name Role Phone LOLLY Simpson Unavailable PROBLEMS Unknown Problems ALLERGIES No Known Allergies ENCOUNTERS Encounter Location Date Diagnosis [facility] [address] [id number] [address] [place] [address] [phone] June, Dental examination Z01.20 [facility] [address] [id number] [address] [place] [address] [phone] June, Dental examination Z01.20 [facility] [address] [id number] [place] [address] [phone] May, Dental examination Z01.20 [facility] [address] [id number] [address] [place] [address] [phone] May, Dental examination Z01.20 [facility] [address] [id number] [address] [place] [address] [phone] Feb, Encounter for dental exam an d cleaning w/o abnormal findings Z01.20 [facility] [address] [id number] [address] [place] [address] [phone] Feb, Dental examination Z01.20 [facility] [address] [id number] [address] [place] [address] [phone] Oct, Encounter for dental examina tion and cleaning without abnormal findings Z01.20 [facility] [address] [id number] [phone] Sep, Encounter for dental examination Z01.20 [facility] [address] [id number] [address] [place] [address] [phone] Jul, Encounter for dental examina tion and cleaning without abnormal findings Z01.20 [facility] [address] [id number] [address] [place] [address] [phone] Apr, Encounter for dental examina tion and cleaning without abnormal findings Z01.20 [facility] [address] [id number] [place] [phone] Jan, Dental examination Z01.20 [facility] [address] [id number] [address] [place] [address] [phone] Jan, Encounter for dental examina tion and cleaning without abnormal findings Z01.20 [facility] [address] [id number] [address] [place] [address] [phone] Sep, Encounter for dental examina tion and cleaning without abnormal findings Z01.20 [facility] [address] [id number] [address] [place] [address] [phone] May, Encounter for dental examina tion and cleaning with abnormal findings Z01.21 [facility] [address] [facility] [id number] [place] [phone] May, Dental examination Z01.20 IMMUNIZATIONS No Known Immunizations SOCIAL HISTORY Never Assessed REASON FOR VISIT PLAN OF CARE Activity Details Follow Up prn Reason: VITAL SIGNS MEDICATIONS Medication Instructions Dosage Frequency Start Date End Date Duration S tatus Ferrous Sulfate 325 MG N ot-Taking Simvastatin 20 MG Orally Once a day 1 tablet in the evening 24h Not-Taking Fish Oil 1000 MG Orally Once a day 1 capsule 24h Active Omeprazole 40 MG Orally Once a day 1 capsule 24h Not-Taking Loratadine 10 MG/10ML Orally Once a day 10 ml 24h Active Benzonatate 200 MG Orally Three times a day 1 capsule 8h Not-Taking Aspirin Active Enalapril Maleate 10 MG Orally Once a day 1 tablet 24h Not-Taking Prilosec 40 MG Orally Once a day 1 capsule 24h Active Flonase Active Metformin HCl 500 MG Orally Twice a day 1 tablet with meals 12h Not-Taking RESULTS No Results PROCEDURES Procedure Date Ordered Result Body Site PERIODIC ORAL EXAMINATION Feb 23, 2017 INTRAORL-PERIAPICAL 1 FILM [id number] Feb 23, 2017 INTRAORL-PERIAPICAL 1 FILM [id number] Feb 23, 2017 INTRAORL-PERIAPICAL 1 FILM 26600 Feb 23, 2017 INSTRUCTIONS MEDICATIONS ADMINISTERED No Known Medications MEDICAL (GENERAL) HISTORY Type Description Date Medical History [facility]
--- OUTSIDE RECORDS SUMMARY | 2019-02-20 05:52 | XMS REPORT ---
Author Author Evelin PANCHAL Organization [facility] Address [address] [place] [address] Care Team Providers Care System Support Developer Name Role Phone JOSE CARLOS PANCHAL Unavailable PROBLEMS Unknown Problems ALLERGIES No Known Allergies ENCOUNTERS Encounter Location Date Diagnosis [facility] [address] [id number] [address] [place] [address] [phone] Sep, Dental examination Z01.20 [facility] [address] [id number] [address] [place] [address] [phone] June, Dental examination Z01.20 [facility] [address] [id number] [address] [place] [address] [phone] June, Dental examination Z01.20 [facility] [address] [id number] [address] [place] [address] [phone] May, Dental examination Z01.20 [facility] [address] [id number] [address] [place] [address] [phone] May, Dental examination Z01.20 [facility] [address] [id number] [address] [place] [address] [phone] Feb, Encounter for dental exam an d cleaning w/o abnormal findings Z01.20 [facility] [address] [id number] [address] [place] [address] [phone] Feb, Dental examination Z01.20 [facility] [address] [id number] [address] [place] [address] [phone] Oct, Encounter for dental examina tion and cleaning without abnormal findings Z01.20 [facility] [address] [id number] [place] [phone] Sep, Encounter for dental examination Z01.20 [facility] [address] [id number] [address] [place] [address] [phone] Jul, Encounter for dental examina tion and cleaning without abnormal findings Z01.20 [facility] [address] [id number] [address] [place] [address] [phone] Apr, Encounter for dental examina tion and cleaning without abnormal findings Z01.20 [facility] [address] [id number] [address] [place] [address] [phone] Jan, Encounter for dental examina tion and cleaning without abnormal findings Z01.20 [facility] [address] [facility] [address] [id number] [phone] Jan, Dental examination Z01.20 [facility] [address] [id number] [address] [place] [address] [phone] Sep, Encounter for dental examina tion and cleaning without abnormal findings Z01.20 [facility] [address] [id number] [address] [place] [address] [phone] May, Encounter for dental examina tion and cleaning with abnormal findings Z01.21 [facility] [address] [facility] [facility] [address] [id number] [phone] May, Dental examination Z01.20 IMMUNIZATIONS No Known Immunizations SOCIAL HISTORY Never Assessed REASON FOR VISIT ADULT OUTREACH CLASS [facility] PLAN OF CARE Activity Details Follow Up prn Reason:ON SITE RECALL VITAL SIGNS MEDICATIONS Medication Instructions Dosage Frequency Start Date End Date Duration S tatus Flonase Active Loratadine 10 MG/10ML Orally Once a day 10 ml 24h Active Prilosec 40 MG Orally Once a day 1 capsule 24h Active Enalapril Maleate 10 MG Orally Once a day 1 tablet 24h Active Aspirin Active Fish Oil 1000 MG Orally Once a day 1 capsule 24h Active Omeprazole 40 MG Orally Once a day 1 capsule 24h Active Ferrous Sulfate 325 MG A ctive Benzonatate 200 MG Orally Three times a day 1 capsule 8h Active Metformin HCl 500 MG Orally Twice a day 1 tablet with meals 12h Active Simvastatin 20 MG Orally Once a day 1 tablet in the evening 24h Active RESULTS No Results PROCEDURES Procedure Date Ordered Result Body Site PERIODIC ORAL EXAMINATION Sep 27, 2017 PROPHYLAXIS - ADULT Sep 27, 2017 TOPICAL FLUORIDE VARNISH Sep 27, 2017 INSTRUCTIONS MEDICATIONS ADMINISTERED No Known Medications MEDICAL (GENERAL) HISTORY Type Description Date Medical History [facility]
--- OUTSIDE RECORDS SUMMARY | 2019-02-20 05:52 | XMS REPORT ---
Author Author Evelin LEE Organization [facility] Address [address] [place] [address] Care Team Providers Care Safety And Health Manager Name Role Phone MILAD LEE Unavailable PROBLEMS Unknown Problems ALLERGIES No Known Allergies ENCOUNTERS Encounter Location Date Diagnosis [facility] [address] [id number] [place] [phone] Sep, [facility] [address] [id number] [address] [place] [address] [phone] June, Dental examination Z01.20 [facility] [address] [id number] [address] [place] [address] [phone] June, Dental examination Z01.20 [facility] [address] [id number] [address] [place] [address] [phone] May, Dental examination Z01.20 [facility] [address] [id number] [address] [place] [address] [phone] May, Dental examination Z01.20 [facility] [address] [id number] [address] [place] [address] [phone] Feb, Encounter for dental exam an d cleaning w/o abnormal findings Z01.20 [facility] [address] [id number] [address] [place] [address] [phone] Feb, Dental examination Z01.20 [facility] [address] [id number] [address] [place] [address] [phone] Oct, Encounter for dental examina tion and cleaning without abnormal findings Z01.20 [facility] [address] [id number] [place] [phone] Sep, Encounter for dental examination Z01.20 [facility] [address] [id number] [address] [place] [address] [phone] Jul, Encounter for dental examina tion and cleaning without abnormal findings Z01.20 [facility] [address] [id number] [address] [place] [address] [phone] Apr, Encounter for dental examina tion and cleaning without abnormal findings Z01.20 [facility] [address] [id number] [address] [place] [address] [phone] Jan, Encounter for dental examina tion and cleaning without abnormal findings Z01.20 [facility] [address] [id number] [place] [phone] Jan, Dental examination Z01.20 [facility] [address] [id number] [address] [place] [address] [phone] Sep, Encounter for dental examina tion and cleaning without abnormal findings Z01.20 [facility] [address] [id number] [address] [place] [address] [phone] May, Encounter for dental examina tion and cleaning with abnormal findings [facility]01.21 [facility] [address] [id number] [place] [phone] May, Dental examination Z01.20 IMMUNIZATIONS No Known Immunizations SOCIAL HISTORY Never Assessed REASON FOR VISIT impressions lower partial PLAN OF CARE Activity Details Follow Up prn Reason:try in VITAL SIGNS MEDICATIONS Medication Instructions Dosage Frequency Start Date End Date Duration S tatus Aspirin Active Flonase Active Loratadine 10 MG/10ML Orally Once a day 10 ml 24h Active Prilosec 40 MG Orally Once a day 1 capsule 24h Active Omeprazole 40 MG Orally Once a day 1 capsule 24h Active Fish Oil 1000 MG Orally Once a day 1 capsule 24h Active Metformin HCl 500 MG Orally Twice a day 1 tablet with meals 12h Active Ferrous Sulfate 325 MG A ctive Enalapril Maleate 10 MG Orally Once a day 1 tablet 24h Active Simvastatin 20 MG Orally Once a day 1 tablet in the evening 24h Active Benzonatate 200 MG Orally Three times a day 1 capsule 8h Active RESULTS No Results PROCEDURES Procedure Date Ordered Result Body Site KURT [facility] DENTUR- CAST METL W/RSN June 13, 2017 Billing Notes on claim June 13, 2017 Dental Outreach adjust balance June 13, 2017 INSTRUCTIONS MEDICATIONS ADMINISTERED No Known Medications MEDICAL (GENERAL) HISTORY Type Description Date Medical History [facility]
--- OUTSIDE RECORDS SUMMARY | 2019-02-20 05:52 | XMS REPORT ---
Author Author Evelin TORREZ Organization [facility] Address [address] [place] [address] Phone Unavailable Care Team Providers Care Associate Financial Analyst Name Role Phone LEO TORREZ Unavailable Unavailable PROBLEMS Unknown Problems ALLERGIES No Known Allergies ENCOUNTERS Encounter Location Date Diagnosis [facility] [address] [id number] [place] [address] [phone] Dec, Encounter for prophylactic a dministration of fluoride Z29.3 [facility] [id number] [place] [address] [phone] Sep, Dental examination Z01.20 [facility] [address] [id number] [place] [address] [phone] June, Dental examination Z01.20 [facility] [address] [id number] [place] [address] [phone] June, Dental examination Z01.20 [facility] [address] [id number] [place] [address] [phone] May, Dental examination Z01.20 [facility] [address] [id number] [address] [place] [address] [phone] May, Dental examination Z01.20 [facility] [address] [id number] [address] [place] [address] [phone] Feb, Encounter for dental exam an d cleaning w/o abnormal findings Z01.20 [facility] [address] [id number] [address] [place] [address] [phone] Feb, Dental examination Z01.20 [facility] [address] [id number] [address] [place] [address] [phone] Oct, Encounter for dental examina tion and cleaning without abnormal findings Z01.20 [facility] [address] [id number] [place] [phone] Sep, Encounter for dental examination Z01.20 [facility] [address] [id number] [address] [place] [address] [phone] Jul, Encounter for dental examina tion and cleaning without abnormal findings Z01.20 [facility] [address] [id number] [address] [place] [address] [id number] Apr, Encounter for dental examina tion and cleaning without abnormal findings Z01.[address] [id number] [phone] Jan, Dental examination Z01.20 [facility] [address] [id number] [address] [place] [address] [phone] Jan, Encounter for dental examina tion and cleaning without abnormal findings Z01.20 [facility] [address] [id number] [address] [place] [address] [phone] Sep, Encounter for dental examina tion and cleaning without abnormal findings Z01.20 [facility] [address] [id number] [address] [place] [address] [phone] May, Encounter for dental examina tion and cleaning with abnormal findings Z01.[address] [id number] [phone] May, Dental examination Z01.20 IMMUNIZATIONS No Known Immunizations SOCIAL HISTORY Never Assessed REASON FOR VISIT PLAN OF CARE Activity Details Follow Up 3 Months Reason:on site reca ll VITAL SIGNS MEDICATIONS Medication Instructions Dosage Frequency Start Date End Date Duration S tatus Prilosec 40 MG Orally Once a day 1 capsule 24h Active Fish Oil 1000 MG Orally Once a day 1 capsule 24h Active Benzonatate 200 MG Orally Three times a day 1 capsule 8h Active Metformin HCl 500 MG Orally Twice a day 1 tablet with meals 12h Active Aspirin Active Flonase Active Simvastatin 20 MG Orally Once a day 1 tablet in the evening 24h Active Omeprazole 40 MG Orally Once a day 1 capsule 24h Active Loratadine 10 MG/10ML Orally Once a day 10 ml 24h Active Enalapril Maleate 10 MG Orally Once a day 1 tablet 24h Active Ferrous Sulfate 325 MG A ctive RESULTS No Results PROCEDURES Procedure Date Ordered Result Body Site PROPHYLAXIS - ADULT Jan 17, 2018 TOPICAL FLUORIDE VARNISH Jan 17, 2018 INSTRUCTIONS MEDICATIONS ADMINISTERED No Known Medications MEDICAL (GENERAL) HISTORY Type Description Date Medical History HBP Surgical History No know Surgical history
--- OUTSIDE RECORDS SUMMARY | 2019-02-20 05:52 | XMS REPORT ---
Author Author Evelin LEE Organization [facility] Address [address] [place] [address] Care Team Providers Care Food And Beverage Assistant Manager Name Role Phone MILAD LEE Unavailable PROBLEMS Unknown Problems ALLERGIES Unknown Allergies SOCIAL HISTORY No smoking Hx information available PLAN OF CARE VITAL SIGNS MEDICATIONS Medication Instructions Dosage Frequency Start Date End Date Duration S tatus Flonase Active Aspirin Active RESULTS No Results PROCEDURES Procedure Date Ordered Related Diagnosis Body Site PERIODIC ORAL EXAMINATION Jan 28, 2016 INTRAORL-PERIAPICAL 1 FILM [id number] Jan 28, 2016 INTRAORL-PERIAPICAL 1 FILM 68446 Jan 28, 2016 INTRAORL-PERIAPICAL 1 FILM [id number] Jan 28, 2016 IMMUNIZATIONS No Known Immunizations
--- OUTSIDE RECORDS SUMMARY | 2019-02-20 05:52 | XMS REPORT ---
Author Author Evelin TORREZ Organization [facility] Address [address] [place] [address] Phone Unavailable Care Team Providers Care Automatic I Threading Machine Feeder Name Role Phone LEO TORREZ Unavailable Unavailable PROBLEMS Unknown Problems ALLERGIES No Known Allergies SOCIAL HISTORY Never Assessed PLAN OF CARE VITAL SIGNS MEDICATIONS Medication Instructions Dosage Frequency Start Date End Date Duration S tatus Loratadine 10 MG/10ML Orally Once a day 10 ml 24h Active Simvastatin 20 MG Orally Once a day 1 tablet in the evening 24h Active Benzonatate 200 MG Orally Three times a day 1 capsule 8h Active Ferrous Sulfate 325 MG A ctive Flonase Active Prilosec 40 MG Orally Once a day 1 capsule 24h Active Aspirin Active Fish Oil 1000 MG Orally Once a day 1 capsule 24h Active RESULTS No Results PROCEDURES Procedure Date Ordered Result Body Site PROPHYLAXIS - ADULT April 28, 2016 TOPICAL FLUORIDE VARNISH April 28, 2016 IMMUNIZATIONS No Known Immunizations MEDICAL (GENERAL) HISTORY Type Description Date Medical History HBP
--- OUTSIDE RECORDS SUMMARY | 2019-02-20 05:52 | XMS REPORT ---
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 Role Phone MILAD LEE Unavailable PROBLEMS Unknown Problems ALLERGIES No Information ENCOUNTERS Encounter Location Date Diagnosis [facility] [address] [id number] [place] [address] [phone] June, [facility] [address] [id number] [address] [place] [address] [phone] May, Dental examination Z01.20 [facility] [address] [id number] [place] [address] [phone] May, Dental examination Z01.20 [facility] [address] [id number] [address] [place] [address] [phone] Feb, Encounter for dental exam an d cleaning w/o abnormal findings Z01.20 [facility] [address] [id number] [address] [place] [address] [phone] Feb, Dental examination Z01.20 [facility] [address] [id number] [address] [place] [address] [id number] Oct, Encounter for dental examina tion and cleaning without abnormal findings Z01.20 [facility] [address] [id number] [phone] Sep, Encounter for dental examination Z01.20 [facility] [address] [id number] [address] [place] [address] [id number] Jul, Encounter for dental examina tion and cleaning without abnormal findings Z01.20 [facility] [address] [id number] [address] [place] [address] [phone] Apr, Encounter for dental examina tion and cleaning without abnormal findings Z01.20 [facility] [address] [id number] [place] [phone] Jan, Dental examination Z01.20 [facility] [address] [id number] [address] [place] [address] [phone] Jan, Encounter for dental examina tion and cleaning without abnormal findings Z01.20 [facility] [address] [id number] [address] [place] [address] [phone] Sep, Encounter for dental examina tion and cleaning without abnormal findings Z01.20 [facility] [address] [id number] [address] [place] [address] [phone] May, Encounter for dental examina tion and cleaning with abnormal findings Z01.21 [facility] [address] [id number] [place] [phone] May, Dental examination Z01.20 IMMUNIZATIONS No Known Immunizations SOCIAL HISTORY Never Assessed REASON FOR VISIT ADULT OUTREACH CLASS LTD PLAN OF CARE VITAL SIGNS MEDICATIONS Unknown Medications RESULTS No Results PROCEDURES Procedure Date Ordered Result Body Site PERIODIC ORAL EXAMINATION Oct 20, 2016 INTRAORL-PERIAPICAL 1 FILM [id number] Oct 20, 2016 INTRAORL-PERIAPICAL EA ADD FILM Oct 20, 2016 INTRAORL-PERIAPICAL EA ADD FILM Oct 20, 2016 INTRAORL-PERIAPICAL EA ADD FILM Oct 20, 2016 INSTRUCTIONS MEDICATIONS ADMINISTERED No Known Medications MEDICAL (GENERAL) HISTORY Type Description Date Medical History [facility]
--- OUTSIDE RECORDS SUMMARY | 2019-02-20 05:52 | XMS REPORT ---
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 Phone MILAD LEE CP Unavailable Allergies No Known Allergies Problems Problem Type Condition Code Onset Dates Condition Statu s Assessment Dental examination Z01.20 Active Medications No Known Medications Procedures Procedure Coding System Code Date INTRAORL-PERIAPICAL 1 FILM 36990 CPT-4 D0220 June 18, 2015 INTRAORL-PERIAPICAL EA ADD FILM CPT-4 D0230 June 18, 2015 COMP ORAL EVALUATION - NEW/EST PT CPT-4 D0150 June 18, 2015 INTRAORL-PERIAPICAL EA ADD FILM CPT-4 D0230 June 18, 2015 INTRAORL-PERIAPICAL EA ADD FILM CPT-4 D0230 June 18, 2015 INTRAORL-PERIAPICAL EA ADD FILM CPT-4 D0230 June 18, 2015 Results No Known Results Summary Purpose eClinicalWorks Submission
--- OUTSIDE RECORDS SUMMARY | 2019-02-20 05:53 | XMS REPORT ---
Author Author Evelin TORREZ Organization [employer] Address Unknown Phone Unavailable Care Team Providers Care Vegetable Picker Name Role Phone LEO TORREZ CP Unavailable Allergies, Adverse Reactions, Alerts Substance Reaction Event Type N.K.D.A. Info Not Available Non Drug Allergy Problems Problem Type Condition Code Onset Dates Condition Statu s Assessment Encounter for dental examina tion and cleaning without abnormal findings Z01.20 Active Medications Medication Code System Code Instructions Start Date End Date Status Dosage Ferrous Sulfate [facility] [address]-35 325 MG Orally not defined Enalapril Maleate [facility] [address]-61 10 MG Orally Once a day 1 tablet Loratadine [facility] [address]-33 10 MG/10ML Orally Once a day 10 ml Fish Oil [facility] [address]-85 1000 MG Orally Once a day 1 capsule Prilosec [facility] [address]-61 40 MG Orally Once a day 1 capsule Simvastatin [facility] [address]-50 20 MG Orally Once a day 1 tablet in the evening Omeprazole [facility] [address]-17 40 MG Orally Once a day 1 capsule Procedures Procedure Coding System Code Date TOPICAL FLUORIDE VARNISH CPT-4 D1206 Oct 08, 2015 PROPHYLAXIS - ADULT CPT-4 D1110 Oct 08, 2015 Results No Known Results Summary Purpose eClinicalWorks Submission
--- OUTSIDE RECORDS SUMMARY | 2019-02-20 05:53 | XMS REPORT ---
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 Name Role Phone LEO TORREZ Unavailable Unavailable PROBLEMS Unknown Problems ALLERGIES No Known Allergies ENCOUNTERS Encounter Location Date Diagnosis [facility] [address] [id number] [address] [place] [address] [phone] June, [facility] [address] [id number] [place] [address] [phone] May, Dental examination Z01.20 [facility] [id number] [place] [address] [phone] May, Dental examination Z01.20 [facility] [address] [id number] [place] [address] [phone] Feb, Encounter for dental exam an d cleaning w/o abnormal findings Z01.20 [facility] [address] [id number] [place] [address] [phone] Feb, Dental examination Z01.20 [facility] [address] [id number] [address] [place] [address] [phone] Oct, Encounter for dental examina tion and cleaning without abnormal findings [facility]01.20 [facility] [address] [id number] [phone] Sep, Encounter for dental examination Z01.20 [facility] [address] [id number] [address] [place] [address] [phone] Jul, Encounter for dental examina tion and cleaning without abnormal findings Z01.20 [facility] [address] [id number] [address] [place] [address] [phone] Apr, Encounter for dental examina tion and cleaning without abnormal findings Z01.20 [facility] [address] [id number] [place] [phone] Jan, Dental examination Z01.20 [facility] [address] [id number] [address] [place] [address] [phone] Jan, Encounter for dental examina tion and cleaning without abnormal findings Z01.20 [facility] [address] [id number] [address] [place] [address] [phone] Sep, Encounter for dental examina tion and cleaning without abnormal findings Z01.20 [facility] [address] [id number] [address] [place] [address] [phone] May, Encounter for dental examina tion and cleaning with abnormal findings Z01.21 [facility] [place] [address] [address] [id number] [place] [phone] May, Dental examination Z01.20 IMMUNIZATIONS No Known Immunizations SOCIAL HISTORY Never Assessed REASON FOR VISIT ADULT OUTREACH CLASS [facility] PLAN OF CARE Activity Details Follow Up 3 Months Reason:ON SITE RECA LL VITAL SIGNS MEDICATIONS Medication Instructions Dosage Frequency Start Date End Date Duration S tatus Aspirin Active Loratadine 10 MG/10ML Orally Once a day 10 ml 24h Active Prilosec 40 MG Orally Once a day 1 capsule 24h Active Fish Oil 1000 MG Orally Once a day 1 capsule 24h Active Flonase Active RESULTS No Results PROCEDURES Procedure Date Ordered Result Body Site PROPHYLAXIS - ADULT Oct 27, 2016 TOPICAL FLUORIDE VARNISH Oct 27, 2016 INSTRUCTIONS MEDICATIONS ADMINISTERED No Known Medications MEDICAL (GENERAL) HISTORY Type Description Date Medical History [facility]
--- OUTSIDE RECORDS SUMMARY | 2019-02-20 05:53 | XMS REPORT ---
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 Role Phone LEO TORREZ Unavailable Unavailable PROBLEMS Unknown Problems ALLERGIES No Known Allergies ENCOUNTERS Encounter Location Date Diagnosis [facility] [address] [id number] [address] [place] [address] [phone] June, Dental examination Z01.20 [facility] [address] [id number] [place] [address] [phone] June, Dental examination Z01.20 [facility] [address] [id number] [address] [place] [address] [phone] May, Dental examination Z01.20 [facility] [address] [id number] [address] [place] [address] [phone] May, Dental examination Z01.20 [facility] [address] [id number] [place] [address] [phone] Feb, Encounter for dental exam an d cleaning w/o abnormal findings Z01.20 [facility] [address] [id number] [address] [place] [address] [phone] Feb, Dental examination Z01.20 [facility] [address] [id number] [address] [place] [address] [phone] Oct, Encounter for dental examina tion and cleaning without abnormal findings Z01.20 [facility] [address] [id number] [place] [phone] Sep, Encounter for dental examination Z01.20 [facility] [address] [id number] [address] [place] [address] [phone] Jul, Encounter for dental examina tion and cleaning without abnormal findings Z01.20 [facility] [address] [id number] [address] [place] [address] [id number] Apr, Encounter for dental examina tion and cleaning without abnormal findings Z01.20 [facility] [address] [id number] [address] [place] [address] [phone] Jan, Encounter for dental examina tion and cleaning without abnormal findings Z01.20 [facility] [address] [id number] [phone] Jan, Dental examination Z01.20 [facility] [address] [id number] [address] [place] [address] [phone] Sep, Encounter for dental examina tion and cleaning without abnormal findings Z01.20 [facility] [address] [id number] [address] [place] [address] [phone] May, Encounter for dental examina tion and cleaning with abnormal findings Z01.21 [facility] [address] [facility] [address] [facility] [address] [id number] [phone] May, Dental examination Z01.20 IMMUNIZATIONS No Known Immunizations SOCIAL HISTORY Never Assessed REASON FOR VISIT ADULT OUTREACH CLASS [facility] PLAN OF CARE Activity Details Follow Up 3 Months Reason:ON SITE RECA LL VITAL SIGNS MEDICATIONS Medication Instructions Dosage Frequency Start Date End Date Duration S tatus Flonase Unknown Aspirin Unknown Prilosec 40 MG Orally Once a day 1 capsule 24h Unknown Simvastatin 20 MG Orally Once a day 1 tablet in the evening 24h Unknown Enalapril Maleate 10 MG Orally Once a day 1 tablet 24h Unknown Fish Oil 1000 MG Orally Once a day 1 capsule 24h Unknown Omeprazole 40 MG Orally Once a day 1 capsule 24h Unknown Benzonatate 200 MG Orally Three times a day 1 capsule 8h Unknown Loratadine 10 MG/10ML Orally Once a day 10 ml 24h Unknown Metformin HCl 500 MG Orally Twice a day 1 tablet with meals 12h Unknown Ferrous Sulfate 325 MG U nknown RESULTS No Results PROCEDURES Procedure Date Ordered Result Body Site PROPHYLAXIS - ADULT Feb 23, 2017 TOPICAL FLUORIDE VARNISH Feb 23, 2017 INSTRUCTIONS MEDICATIONS ADMINISTERED No Known Medications MEDICAL (GENERAL) HISTORY Type Description Date Medical History HBP
--- OUTSIDE RECORDS SUMMARY | 2019-02-20 05:53 | XMS REPORT | Continuity of Care Document ---
Author Organization Unknown Address Unknown Phone Unavailable Allergies Active Description Code Type Severity Reaction Onset Reported/Identified Relationship to Patient Clinical Status Yes nka nka Mild N/A 04/11/2009 Yes NKANo Known Allergies NKA Miscellaneous Allergy Mild N/A 04/11/2009 Yes No Known Drug Allergies [id number] Drug Allergy Unknown N/A 02/19/2019 Medications There is no data. Problems Date Dx Coded Attending Type Code Diagnosis Diagnosed By 07/17/2009 Ot V12.51 HX- VENOUS THROMBOSIS EMBOLISM 11/12/2013 QUAN YEPEZ MD Ot 250. 00 DIAB MATT WO COMPL, TYPE II OR UNSPEC TY 11/12/2013 QUAN YEPEZ MD Ot 285. 9 ANEMIA NOS 11/12/2013 QUAN YEPEZ MD Ot 288. 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 9 HYPERTENSION NOS 11/12/2013 QUAN YEPEZ MD Ot 496 CHR AIRWAY OBSTRUCT NEC 11/12/2013 QUAN YEPEZ MD Ot V12. 51 HX-VENOUS THROMBOSIS EMBOLISM 11/12/2013 QUAN YEPEZ MD Ot V12. 55 PERSONAL HISTORY OF PULMONARY EMBOLISM 11/12/2013 QUAN YEPEZ MD Ot V58. 66 LONG-TERM (CURRENT) USE OF ASPIRIN 11/12/2013 QUAN YEPEZ MD Ot V58. 69 OT MED,LT,CURRENT USE 02/17/2014 QUAN YEPEZ MD Ot 250. 00 DIAB MATT WO COMPL, TYPE II OR UNSPEC TY 02/17/2014 QUAN YEPEZ MD Ot 285. 9 ANEMIA NOS 02/17/2014 QUAN YEPEZ MD Ot 288. 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 9 HYPERTENSION NOS 02/17/2014 LUCHO ORTEGA, QUAN Ot 496 CHR AIRWAY OBSTRUCT NEC 02/17/2014 LUCHO ORTEGA, QUAN Ot V12. 51 HX-VENOUS THROMBOSIS EMBOLISM 02/17/2014 LUCHO ORTEGA, QUAN Ot V12. 55 PERSONAL HISTORY OF PULMONARY EMBOLISM 02/17/2014 LUCHO ORTEGA, QUAN Ot V58. 66 LONG-TERM (CURRENT) USE OF ASPIRIN 02/17/2014 LUCHO ORTEGA, QUAN Ot V58. 69 OT MED,LT,CURRENT USE 06/25/2014 LUCHO ORTEGA, QUAN Ot 250. 00 06/25/2014 LUCHO ORTEGA, QUAN Ot 285. 9 06/25/2014 LUCHO ORTEGA, QUAN Ot 288. 50 06/25/2014 LUCHO ORTEGA, QUAN Ot 317 06/25/2014 LUCHO ORTEGA, QUAN Ot 401. 9 06/25/2014 LUCHO ORTEGA, QUAN Ot 496 06/25/2014 LUCHO ORTEGA, QUAN Ot V12. 51 06/25/2014 LUCHO ORTEGA, QUAN Ot V12. 55 06/25/2014 LUCHO ORTEGA, QUAN Ot V58. 66 06/25/2014 LUCHO ORTEGA, QUAN Ot V58. 69 06/27/2014 [facility] Ot 783.21 06/27/2014 GELLENDER DO, LE A Ot 783.21 06/28/2014 GELLENDER DO, LE A Ot 783.21 06/28/2014 GELLENDER DO, LE A Ot 783.21 06/28/2014 GELLENDER DO, LE A Ot 783.21 06/28/2014 GELLENDER DO, LE A Ot 783.21 07/01/2014 GELLENDER DO, LE A Ot 789.01 07/01/2014 GELLENDER DO, LE A Ot 793.11 07/12/2014 LUCHO ORTEGA, QUAN Ot 250. 00 07/12/2014 LUCHO ORTEGA, QUAN Ot 285. 9 07/12/2014 LUCHO ORTEGA, QUAN Ot 288. 50 07/12/2014 LUCHO ORTEGA, QUAN Ot 317 07/12/2014 LUCHO ORTEGA, QUAN Ot 401. 9 07/12/2014 QUAN YEPEZ MD Ot 496 07/12/2014 QUAN YEPEZ MD Ot V12. 51 07/12/2014 QUAN YEPEZ MD Ot V12. 55 07/12/2014 QUAN YEPEZ MD Ot V58. 66 07/12/2014 QUAN YEPEZ MD Ot V58. 69 07/22/2014 GELLENDER DO, LE A Ot 789.01 07/22/2014 GELLENDER DO, LE A Ot 793.11 08/02/2014 GELLENDER DO, LE A Ot 789.01 08/02/2014 GELLENDER DO, LE A Ot 793.11 08/04/2014 QUAN YEPEZ MD Ot 250. 00 DIAB MATT WO COMPL, TYPE II OR UNSPEC TY 08/04/2014 QUAN YEPEZ MD Ot 285. 9 ANEMIA NOS 08/04/2014 QUAN YEPEZ MD Ot 288. 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 9 HYPERTENSION NOS 08/04/2014 QUAN YEPEZ MD Ot 496 CHR AIRWAY OBSTRUCT NEC 08/04/2014 QUAN YEPEZ MD Ot V12. 51 HX-VENOUS THROMBOSIS EMBOLISM 08/04/2014 QUAN YEPEZ MD Ot V12. 55 PERSONAL HISTORY OF PULMONARY EMBOLISM 08/04/2014 QUAN YEPEZ MD Ot V58. 66 LONG-TERM (CURRENT) USE OF ASPIRIN 08/04/2014 QUAN YEPEZ MD Ot V58. 69 OT MED,LT,CURRENT USE 08/16/2014 ARLEY HARDWICK MD Ot 401. 9 08/16/2014 ARLEY HARDWICK MD Ot 780. 2 08/16/2014 ARLEY HARDWICK MD Ot 786. 09 08/16/2014 MULU ORTEGA, ARLEY Chaves Ot 786. 50 08/17/2014 LE GUEVARA DO Ot 783.21 08/19/2014 ARLEY HARDWICK MD Ot 401. 9 08/19/2014 ARLEY HARDWICK MD Ot 780. 2 08/19/2014 ARLEY HARDWICK MD Ot 786. 09 08/19/2014 ARLEY HARDWICK MD Ot 786. 50 09/25/2014 LE GUEVARA DO Ot 783.21 11/04/2014 LUCHO ORTEGA, PATRICIO-ALICE Ot 250. 00 11/04/2014 LUCHO ORTEGA, PATRICIO-ALICE Ot 285. 9 11/04/2014 LUCHO ORTEGA, PATRICIO-ALICE Ot 288. 50 11/04/2014 LUCHO ORTEGA, PATRICIO-ALICE Ot 317 11/04/2014 LUCHO ORTEGA, PATRICIO-ALICE Ot 401. 9 11/04/2014 LUCHO ORTEGA, PATRICIO-ALICE Ot 496 11/04/2014 LUCHO ORTEGA, PATRICIO-ALICE Ot V12. 51 11/04/2014 LUCHO ORTEGA, PATRICIO-ALICE Ot V12. 55 11/04/2014 LUCHO ORTEGA, PATRICIO-ALICE Ot V58. 66 11/04/2014 LUCHO ORTEGA, PATRICIO-ALICE Ot V58. 69 01/20/2015 LUCHO ORTEGA, PATRICIO-ALICE Ot 250. 00 01/20/2015 LUCHO ORTEGA, PATRICIO-ALICE Ot 285. 9 01/20/2015 LUCHO ORTEGA, PATRICIO-ALICE Ot 288. 50 01/20/2015 LUCHO ORTEGA, PATRICIO-ALICE Ot 317 01/20/2015 LUCHO ORTEGA, PATRICIO-ALICE Ot 401. 9 01/20/2015 LUCHO ORTEGA, PATRICIO-ALICE Ot 496 01/20/2015 LUCHO ORTEGA, PATRICIO-ALICE Ot V12. 51 01/20/2015 LUCHO ORTEGA, PATRICIO-ALICE Ot V12. 55 01/20/2015 LUCHO ORTEGA, PATRICIO-ALICE Ot V58. 66 01/20/2015 LUCHO ORTEGA, PATRICIO-ALICE Ot V58. 69 01/30/2015 LUCHO ORTEGA, PATRICIO-ALICE Ot 250. 00 01/30/2015 LUCHO ORTEGA, PATRICIO-ALICE Ot 285. 9 01/30/2015 LUCHO ORTEGA, PATRICIO-ALICE Ot 288. 50 01/30/2015 LUCHO ORTEGA, PATRICIO-ALICE Ot 317 01/30/2015 LUCHO ORTEGA, PATRICIO-ALICE Ot 401. 9 01/30/2015 LUCHO ORTEGA, PATRICIO-ALICE Ot 496 01/30/2015 LUCHO ORTEGA, PATRICIO-ALICE Ot V12. 51 01/30/2015 LUCHO ORTEGA, PATRICIO-ALICE Ot V12. 55 01/30/2015 LUCHO ORTEGA, PATRICIO-ALICE Ot V58. 66 01/30/2015 LUCHO ORTEGA, PATRICIO-ALICE Ot V58. 69 02/05/2015 LUCHO ORTEGA, PATRICIO-ALICE Ot 250. 00 02/05/2015 LUCHO ORTEGA, PATRICIO-ALICE Ot 285. 9 02/05/2015 LUCHO ORTEGA, PATRICIO-ALICE Ot 288. 50 02/05/2015 LUCHO ORTEGA, PATRICIO-ALICE Ot 317 02/05/2015 LUCHO ORTEGA, PATRICIO-ALICE Ot 401. 9 02/05/2015 LUCHO ORTEGA, PATRICIO-ALICE Ot 496 02/05/2015 LUCHO ORTEGA, PATRICIO-ALICE Ot V12. 51 02/05/2015 LUCHO ORTEGA, PATRICIO-ALICE Ot V12. 55 02/05/2015 LUCHO ORTEGA, PATRICIO-ALICE Ot V58. 66 02/05/2015 LUCHO ORTEGA, QUAN Ot V58. 69 03/19/2015 LUCHO ORTEGA, QUAN Ot D64. 9 03/19/2015 LUCHO ORTEGA, QUAN Ot D72.819 03/19/2015 LUCHO ORTEGA, QUAN Ot E11. 9 03/19/2015 LUCHO ORTEGA, QUAN Ot F70 03/19/2015 LUCHO ORTEGA, QUAN Ot I10 03/19/2015 LUCHO ORTEGA, QUAN Ot J44. 9 03/19/2015 LUCHO ORTEGA, QUAN Ot Z79. 82 03/19/2015 LUCHO ORTEGA, QUAN Ot Z86.711 03/19/2015 LUCHO ORTEGA, QUAN Ot Z86.718 05/05/2015 LUCHO ORTEGA, QUAN Samano D64. 9 ANEMIA, UNSPECIFIED 05/05/2015 LUCHO ORTEGA, QUAN Ot D72.819 DECREASED WHITE BLOOD CELL COUNT, UNSPEC 05/05/2015 LUCHO ORTEGA, QUAN Ot E11. 9 TYPE 2 DIABETES MELLITUS WITHOUT COMPLIC 05/05/2015 LUCHO ORTEGA, QUAN Ot F70 MILD INTELLECTUAL DISABILITIES 05/05/2015 LUCHO ORTEGA, QUAN Ot I10 ESSENTIAL (PRIMARY) HYPERTENSION 05/05/2015 LUCHO ORTEGA, QUAN Samano J44. 9 CHRONIC OBSTRUCTIVE PULMONARY DISEASE, U 05/05/2015 LUCHO ORTEGA, QUAN Samano Z79. 82 FPC (CURRENT) USE OF ASPIRIN 05/05/2015 LUCHO ORTEGA, QUAN Samano 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 05/05/2015 QUAN YEPEZ MD Ot Z86.718 PERSONAL HISTORY OF OTHER VENOUS THROMBO 08/01/2015 QUAN YEPEZ MD, Ot D64. 9 ANEMIA, UNSPECIFIED 08/01/2015 QUAN YEPEZ MD Ot D72.819 DECREASED WHITE BLOOD CELL COUNT, UNSPEC 08/01/2015 QUAN YEPEZ MD Ot E11. 9 TYPE 2 DIABETES MELLITUS WITHOUT COMPLIC 08/01/2015 QUAN YEPEZ MD Ot F70 MILD INTELLECTUAL DISABILITIES 08/01/2015 QUAN YEPEZ MD Ot I10 ESSENTIAL (PRIMARY) HYPERTENSION 08/01/2015 QUAN YEPEZ MD, Ot J44. 9 CHRONIC OBSTRUCTIVE PULMONARY DISEASE, U 08/01/2015 QUAN YEPEZ MD, Ot Z79. 82 FPC (CURRENT) USE OF ASPIRIN 08/01/2015 QUAN YEPEZ MD, Ot 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 08/01/2015 QUAN YEPEZ MD, Ot Z86.718 PERSONAL HISTORY OF OTHER VENOUS THROMBO 08/01/2015 QUAN YEPEZ MD, Ot D64. 9 ANEMIA, UNSPECIFIED 08/01/2015 QUAN YEPEZ MD Ot D72.819 DECREASED WHITE BLOOD CELL COUNT, UNSPEC 08/01/2015 QUAN YEPEZ MD, Ot E11. 9 TYPE 2 DIABETES MELLITUS WITHOUT COMPLIC 08/01/2015 QUAN YEPEZ MD, Ot F70 MILD INTELLECTUAL DISABILITIES 08/01/2015 QUAN YEPEZ MD Ot I10 ESSENTIAL (PRIMARY) HYPERTENSION 08/01/2015 QUAN YEPEZ MD, Ot J44. 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 9 ANEMIA, UNSPECIFIED 08/20/2015 QUAN YEPEZ MD Ot D72.819 DECREASED WHITE BLOOD CELL COUNT, UNSPEC 08/20/2015 QUAN YEPEZ MD, Ot E11. 9 TYPE 2 DIABETES MELLITUS WITHOUT COMPLIC 08/20/2015 QUAN YEPEZ MD Ot F70 MILD INTELLECTUAL DISABILITIES 08/20/2015 QUAN YEPEZ MD Ot I10 ESSENTIAL (PRIMARY) HYPERTENSION 08/20/2015 QUAN YEPEZ MD, Ot J44. 9 CHRONIC OBSTRUCTIVE PULMONARY DISEASE, U 08/20/2015 QUAN YEPEZ MD, Ot Z79. 82 FPC (CURRENT) USE OF ASPIRIN 08/20/2015 QUAN YEPEZ MD Ot 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 08/20/2015 QUAN YEPEZ MD, Ot Z86.718 PERSONAL HISTORY OF OTHER VENOUS THROMBO 09/05/2015 QUAN YEPEZ MD, Ot D64. 9 ANEMIA, UNSPECIFIED 09/05/2015 QUAN YEPEZ MD Ot D72.819 DECREASED WHITE BLOOD CELL COUNT, UNSPEC 09/05/2015 QUAN YEPEZ MD, Ot E11. 9 TYPE 2 DIABETES MELLITUS WITHOUT COMPLIC 09/05/2015 QUAN YEPEZ MD, Ot F70 MILD INTELLECTUAL DISABILITIES 09/05/2015 QUAN YEPEZ MD, Ot I10 ESSENTIAL (PRIMARY) HYPERTENSION 09/05/2015 QUAN YEPEZ MD, Ot J44. 9 CHRONIC OBSTRUCTIVE PULMONARY DISEASE, U 09/05/2015 QUAN YEPEZ MD, Ot Z79. 82 FPC (CURRENT) USE OF ASPIRIN 09/05/2015 QUAN YEPEZ MD Ot 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 09/05/2015 QUAN YEPEZ MD Ot Z86.718 PERSONAL HISTORY OF OTHER VENOUS THROMBO 09/12/2015 QUAN YEPEZ MD, Ot D64. 9 ANEMIA, UNSPECIFIED 09/12/2015 QUAN YEPEZ MD Ot D72.819 DECREASED WHITE BLOOD CELL COUNT, UNSPEC 09/12/2015 QUAN YEPEZ MD, Ot E11. 9 TYPE 2 DIABETES MELLITUS WITHOUT COMPLIC 09/12/2015 QUAN YEPEZ MD, Ot F70 MILD INTELLECTUAL DISABILITIES 09/12/2015 QUAN YEPEZ MD Ot I10 ESSENTIAL (PRIMARY) HYPERTENSION 09/12/2015 QUAN YEPEZ MD Ot J44. 9 CHRONIC OBSTRUCTIVE PULMONARY DISEASE, U 09/12/2015 QUAN YEPEZ MD Ot Z79. 82 FPC (CURRENT) USE OF ASPIRIN 09/12/2015 QUAN YEPEZ MD Ot 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 09/12/2015 QUAN YEPEZ MD Ot Z86.718 PERSONAL HISTORY OF OTHER VENOUS THROMBO 04/14/2016 QUAN YEPEZ MD, Ot D64. 9 ANEMIA, UNSPECIFIED 04/14/2016 QUAN YEPEZ MD Ot D72.819 DECREASED WHITE BLOOD CELL COUNT, UNSPEC 04/14/2016 QUAN YEPEZ MD Ot E11. 9 TYPE 2 DIABETES MELLITUS WITHOUT COMPLIC 04/14/2016 QUAN YEPEZ MD Ot F70 MILD INTELLECTUAL DISABILITIES 04/14/2016 QUAN YEPEZ MD Ot I10 ESSENTIAL (PRIMARY) HYPERTENSION 04/14/2016 QUAN YEPEZ MD, Ot J44. 9 CHRONIC OBSTRUCTIVE PULMONARY DISEASE, U 04/14/2016 QUAN YEPEZ MD, Ot Z79. 82 FPC (CURRENT) USE OF ASPIRIN 04/14/2016 QUAN YEPEZ MD, Ot 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 04/14/2016 QUAN YEPEZ MD, Ot Z86.718 PERSONAL HISTORY OF OTHER VENOUS THROMBO 04/21/2016 QUAN YEPEZ MD Ot D64. 9 ANEMIA, UNSPECIFIED 04/21/2016 QUAN YEPEZ MD Ot D72.819 DECREASED WHITE BLOOD CELL COUNT, UNSPEC 04/21/2016 QUAN YEPEZ MD, Ot E11. 9 TYPE 2 DIABETES MELLITUS WITHOUT COMPLIC 04/21/2016 QUAN YEPEZ MD Ot F70 MILD INTELLECTUAL DISABILITIES 04/21/2016 QUAN YEPEZ MD Ot I10 ESSENTIAL (PRIMARY) HYPERTENSION 04/21/2016 QUAN YEPEZ MD, Ot J44. 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 04/21/2016 QUAN YEPEZ MD Ot 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 04/21/2016 QUAN YEPEZ MD, Ot Z86.718 PERSONAL HISTORY OF OTHER VENOUS THROMBO 05/06/2016 GELLENDER DOLE Ot K59.00 CONSTIPATION, UNSPECIFIED 05/06/2016 GELLENDER DOLE Ot N32.89 OTHER SPECIFIED DISORDERS OF BLADDER 05/06/2016 GELLENDER DOLE Ot R63.4 ABNORMAL WEIGHT LOSS 05/06/2016 GELLENLE CARDOZO DO Maggie Ot R74.8 ABNORMAL LEVELS OF OTHER SERUM ENZYMES 05/11/2016 GELLENDER DO, LE Serrano Ot K59.00 CONSTIPATION, UNSPECIFIED 05/11/2016 GELLENDER DO, LE Maggie Ot N32.89 OTHER SPECIFIED DISORDERS OF BLADDER 05/11/2016 GELLENDER DO, LE Serrano Ot R63.4 ABNORMAL WEIGHT LOSS 05/11/2016 GELLENDER DO, LE Maggie Ot R74.8 ABNORMAL LEVELS OF OTHER SERUM ENZYMES 05/26/2016 GELLENDER DO, LE Serrano Ot K59.00 CONSTIPATION, UNSPECIFIED 05/26/2016 GELLENDER DO, LE Maggie Ot N32.89 OTHER SPECIFIED DISORDERS OF BLADDER 05/26/2016 GELLENDER DO, LE Serrano Ot R63.4 ABNORMAL WEIGHT LOSS 05/26/2016 GELLENDER DO, LE Serrano Ot R74.8 ABNORMAL LEVELS OF OTHER SERUM ENZYMES 05/31/2016 QUAN YEPEZ MD Ot D64. 9 ANEMIA, UNSPECIFIED 05/31/2016 QUAN YEPEZ MD Ot D72.819 DECREASED WHITE BLOOD CELL COUNT, UNSPEC 05/31/2016 QUAN YEPEZ MD Ot E11. 9 TYPE 2 DIABETES MELLITUS WITHOUT COMPLIC 05/31/2016 QUAN YEPEZ MD Ot F70 MILD INTELLECTUAL DISABILITIES 05/31/2016 QUAN YEPEZ MD Ot I10 ESSENTIAL (PRIMARY) HYPERTENSION 05/31/2016 QUAN YEPEZ MD Ot J44. 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 9 ANEMIA, UNSPECIFIED 06/11/2016 QUAN YEPEZ MD Ot D72.819 DECREASED WHITE BLOOD CELL COUNT, UNSPEC 06/11/2016 QUAN YEPEZ MD Ot E11. 9 TYPE 2 DIABETES MELLITUS WITHOUT COMPLIC 06/11/2016 QUAN YEPEZ MD Ot F70 MILD INTELLECTUAL DISABILITIES 06/11/2016 QUAN YEPEZ MD Ot I10 ESSENTIAL (PRIMARY) HYPERTENSION 06/11/2016 QUAN YEPEZ MD Ot J44. 9 CHRONIC OBSTRUCTIVE PULMONARY DISEASE, U 06/11/2016 QUAN YEPEZ MD Ot Z79. 82 FPC (CURRENT) USE OF ASPIRIN 06/11/2016 QUAN YEPEZ MD Ot 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 06/11/2016 QUAN YEPEZ MD Ot Z86.718 PERSONAL HISTORY OF OTHER VENOUS THROMBO 06/15/2016 QUAN YEPEZ MD Ot D64. 9 ANEMIA, UNSPECIFIED 06/15/2016 QUAN YEPEZ MD Ot D72.819 DECREASED WHITE BLOOD CELL COUNT, UNSPEC 06/15/2016 QUAN YEPEZ MD, Ot E11. 9 TYPE 2 DIABETES MELLITUS WITHOUT COMPLIC 06/15/2016 QUAN YEPEZ MD Ot F70 MILD INTELLECTUAL DISABILITIES 06/15/2016 QUAN YEPEZ MD Ot I10 ESSENTIAL (PRIMARY) HYPERTENSION 06/15/2016 QUAN YEPEZ MD, Ot J44. 9 CHRONIC OBSTRUCTIVE PULMONARY DISEASE, U 06/15/2016 QUAN YEPEZ MD Ot Z79. 82 FPC (CURRENT) USE OF ASPIRIN 06/15/2016 QUAN YEPEZ MD Ot 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 06/15/2016 QUAN YEPEZ MD Ot Z86.718 PERSONAL HISTORY OF OTHER VENOUS THROMBO 07/14/2016 QUAN YEPEZ MD Ot D64. 9 ANEMIA, UNSPECIFIED 07/14/2016 QUAN YEPEZ MD Ot D72.819 DECREASED WHITE BLOOD CELL COUNT, UNSPEC 07/14/2016 QUAN YEPEZ MD Ot E11. 9 TYPE 2 DIABETES MELLITUS WITHOUT COMPLIC 07/14/2016 QUAN YEPEZ MD Ot F70 MILD INTELLECTUAL DISABILITIES 07/14/2016 QUAN YEPEZ MD Ot I10 ESSENTIAL (PRIMARY) HYPERTENSION 07/14/2016 QUAN YEPEZ MD Ot J44. 9 CHRONIC OBSTRUCTIVE PULMONARY DISEASE, U 07/14/2016 QUAN YEPEZ MD, Ot Z79. 82 FPC (CURRENT) USE OF ASPIRIN 07/14/2016 QUAN YEPEZ MD, Ot 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 07/14/2016 QUAN YEPEZ MD, Ot Z86.718 PERSONAL HISTORY OF OTHER VENOUS THROMBO 07/19/2016 QUAN YEPEZ MD, Ot D64. 9 ANEMIA, UNSPECIFIED 07/19/2016 QUAN YEPEZ MD Ot D72.819 DECREASED WHITE BLOOD CELL COUNT, UNSPEC 07/19/2016 QUAN YEPEZ MD, Ot E11. 9 TYPE 2 DIABETES MELLITUS WITHOUT COMPLIC 07/19/2016 QUAN YEPEZ MD, Ot F70 MILD INTELLECTUAL DISABILITIES 07/19/2016 QUAN YEPEZ MD, Ot I10 ESSENTIAL (PRIMARY) HYPERTENSION 07/19/2016 QUAN YEPEZ MD, Ot J44. 9 CHRONIC OBSTRUCTIVE PULMONARY DISEASE, U 07/19/2016 QUAN YEPEZ MD, Ot Z79. 82 FPC (CURRENT) USE OF ASPIRIN 07/19/2016 QUAN YEPEZ MD, Ot 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 07/19/2016 QUAN YEPEZ MD, Ot Z86.718 PERSONAL HISTORY OF OTHER VENOUS THROMBO 09/07/2016 QUAN YEPEZ MD, Ot D64. 9 ANEMIA, UNSPECIFIED 09/07/2016 QUAN YEPEZ MD Ot D72.819 DECREASED WHITE BLOOD CELL COUNT, UNSPEC 09/07/2016 QUAN YEPEZ MD, Ot E11. 9 TYPE 2 DIABETES MELLITUS WITHOUT COMPLIC 09/07/2016 QUAN YEPEZ MD, Ot F70 MILD INTELLECTUAL DISABILITIES 09/07/2016 QUAN YEPEZ MD, Ot I10 ESSENTIAL (PRIMARY) HYPERTENSION 09/07/2016 QUAN YEPEZ MD, Ot J44. 9 CHRONIC OBSTRUCTIVE PULMONARY DISEASE, U 09/07/2016 QUAN YEPEZ MD, Ot Z79. 82 FPC (CURRENT) USE OF ASPIRIN 09/07/2016 QUAN YEPEZ MD Ot 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 09/07/2016 QUAN YEPEZ MD, Ot Z86.718 PERSONAL HISTORY OF OTHER VENOUS THROMBO 09/07/2016 XUN MD, PATRICIO-ALICE Ot D64. 9 ANEMIA, UNSPECIFIED 09/07/2016 QUAN YEPEZ MD Ot D72.819 DECREASED WHITE BLOOD CELL COUNT, UNSPEC 09/07/2016 QUAN YEPEZ MD Ot E11. 9 TYPE 2 DIABETES MELLITUS WITHOUT COMPLIC 09/07/2016 QUAN YEPEZ MD Ot F70 MILD INTELLECTUAL DISABILITIES 09/07/2016 QUAN YEPEZ MD Ot I10 ESSENTIAL (PRIMARY) HYPERTENSION 09/07/2016 QUAN YEPEZ MD Ot J44. 9 CHRONIC OBSTRUCTIVE PULMONARY DISEASE, U 09/07/2016 QUAN YEPEZ MD, Ot Z79. 82 FPC (CURRENT) USE OF ASPIRIN 09/07/2016 QUAN YEPEZ MD, Ot 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 09/07/2016 QUAN YEPEZ MD, Ot Z86.718 PERSONAL HISTORY OF OTHER VENOUS THROMBO 09/12/2016 QUAN YEPEZ MD Ot D61.818 OTHER PANCYTOPENIA 09/12/2016 QUAN YEPEZ MD, Ot E11. 9 TYPE 2 DIABETES MELLITUS WITHOUT COMPLIC 09/12/2016 QUAN YEPEZ MD, Ot F70 MILD INTELLECTUAL DISABILITIES 09/12/2016 QUAN YEPEZ MD Ot I10 ESSENTIAL (PRIMARY) HYPERTENSION 09/12/2016 QUAN YEPEZ MD, Ot J44. 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 9 ANEMIA, UNSPECIFIED 10/19/2016 QUAN YEPEZ MD Ot D72.819 DECREASED WHITE BLOOD CELL COUNT, UNSPEC 10/19/2016 QUAN YEPEZ MD Ot E11. 9 TYPE 2 DIABETES MELLITUS WITHOUT COMPLIC 10/19/2016 QUAN YEPEZ MD Ot F70 MILD INTELLECTUAL DISABILITIES 10/19/2016 QUAN YEPEZ MD Ot I10 ESSENTIAL (PRIMARY) HYPERTENSION 10/19/2016 QUAN YEPEZ MD Ot J44. 9 CHRONIC OBSTRUCTIVE PULMONARY DISEASE, U 10/19/2016 QUAN YEPEZ MD Ot Z79. 82 FPC (CURRENT) USE OF ASPIRIN 10/19/2016 QUAN YEPEZ MD Ot 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 10/19/2016 QUAN YEPEZ MD Ot Z86.718 PERSONAL HISTORY OF OTHER VENOUS THROMBO 10/19/2016 QUAN YEPEZ MD Ot D64. 9 ANEMIA, UNSPECIFIED 10/19/2016 QUAN YEPEZ MD Ot D72.819 DECREASED WHITE BLOOD CELL COUNT, UNSPEC 10/19/2016 QUAN YEPEZ MD Ot E11. 9 TYPE 2 DIABETES MELLITUS WITHOUT COMPLIC 10/19/2016 QUAN YEPEZ MD Ot F70 MILD INTELLECTUAL DISABILITIES 10/19/2016 QUAN YEPEZ MD Ot I10 ESSENTIAL (PRIMARY) HYPERTENSION 10/19/2016 QUAN YEPEZ MD Ot J44. 9 CHRONIC OBSTRUCTIVE PULMONARY DISEASE, U 10/19/2016 QUAN YEPEZ MD Ot Z79. 82 FPC (CURRENT) USE OF ASPIRIN 10/19/2016 QUAN YEPEZ MD Ot 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 10/19/2016 QUAN YEPEZ MD Ot Z86.718 PERSONAL HISTORY OF OTHER VENOUS THROMBO 11/20/2016 QUAN YEPEZ MD Ot D64. 9 ANEMIA, UNSPECIFIED 11/20/2016 QUAN YEPEZ MD Ot D72.819 DECREASED WHITE BLOOD CELL COUNT, UNSPEC 11/20/2016 QUAN YEPEZ MD Ot E11. 9 TYPE 2 DIABETES MELLITUS WITHOUT COMPLIC 11/20/2016 QUAN YEPEZ MD Ot F70 MILD INTELLECTUAL DISABILITIES 11/20/2016 QUAN YEPEZ MD Ot I10 ESSENTIAL (PRIMARY) HYPERTENSION 11/20/2016 QUAN YEPEZ MD Ot J44. 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 9 ANEMIA, UNSPECIFIED 11/25/2016 QUAN YEPEZ MD, Ot D72.819 DECREASED WHITE BLOOD CELL COUNT, UNSPEC 11/25/2016 QUAN YEPEZ MD, Ot E11. 9 TYPE 2 DIABETES MELLITUS WITHOUT COMPLIC 11/25/2016 QUAN YEPEZ MD, Ot F70 MILD INTELLECTUAL DISABILITIES 11/25/2016 QUAN YEPEZ MD Ot I10 ESSENTIAL (PRIMARY) HYPERTENSION 11/25/2016 QUAN YEPEZ MD, Ot J44. 9 CHRONIC OBSTRUCTIVE PULMONARY DISEASE, U 11/25/2016 QUAN YEPEZ MD, Ot Z79. 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 9 ANEMIA, UNSPECIFIED 12/10/2016 QUAN YEPEZ MD, Ot D72.819 DECREASED WHITE BLOOD CELL COUNT, UNSPEC 12/10/2016 QUAN YEPEZ MD, Ot E11. 9 TYPE 2 DIABETES MELLITUS WITHOUT COMPLIC 12/10/2016 QUAN YEPEZ MD, Ot F70 MILD INTELLECTUAL DISABILITIES 12/10/2016 QUAN YEPEZ MD, Ot I10 ESSENTIAL (PRIMARY) HYPERTENSION 12/10/2016 QUAN YEPEZ MD, Ot J44. 9 CHRONIC OBSTRUCTIVE PULMONARY DISEASE, U 12/10/2016 QUAN YEPEZ MD, Ot Z79. 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 9 ANEMIA, UNSPECIFIED 01/14/2017 QUAN YEPEZ MD Ot D72.819 DECREASED WHITE BLOOD CELL COUNT, UNSPEC 01/14/2017 QUAN YEPEZ MD Ot E11. 9 TYPE 2 DIABETES MELLITUS WITHOUT COMPLIC 01/14/2017 QUAN YEPEZ MD Ot F70 MILD INTELLECTUAL DISABILITIES 01/14/2017 XUN MD, PATRICIO-ALICE Ot I10 ESSENTIAL (PRIMARY) HYPERTENSION 01/14/2017 QUAN YEPEZ MD Ot J44. 9 CHRONIC OBSTRUCTIVE PULMONARY DISEASE, U 01/14/2017 QUAN YEPEZ MD Ot Z79. 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 9 ANEMIA, UNSPECIFIED 01/18/2017 QUAN YEPEZ MD Ot D72.819 DECREASED WHITE BLOOD CELL COUNT, UNSPEC 01/18/2017 QUAN YEPEZ MD Ot E11. 9 TYPE 2 DIABETES MELLITUS WITHOUT COMPLIC 01/18/2017 QUAN YEPEZ MD Ot F70 MILD INTELLECTUAL DISABILITIES 01/18/2017 QUAN YEPEZ MD, Ot I10 ESSENTIAL (PRIMARY) HYPERTENSION 01/18/2017 QUAN YEPEZ MD Ot J44. 9 CHRONIC OBSTRUCTIVE PULMONARY DISEASE, U 01/18/2017 QUAN YEPEZ MD Ot Z79. 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 9 ANEMIA, UNSPECIFIED 03/09/2017 QUAN YEPEZ MD Ot D72.819 DECREASED WHITE BLOOD CELL COUNT, UNSPEC 03/09/2017 QUAN YEPEZ MD Ot E11. 9 TYPE 2 DIABETES MELLITUS WITHOUT COMPLIC 03/09/2017 QUAN YEPEZ MD Ot F70 MILD INTELLECTUAL DISABILITIES 03/09/2017 QUAN YEPEZ MD Ot I10 ESSENTIAL (PRIMARY) HYPERTENSION 03/09/2017 QUAN YEPEZ MD Ot J44. 9 CHRONIC OBSTRUCTIVE PULMONARY DISEASE, U 03/09/2017 QUAN YEPEZ MD Ot Z79. 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 9 ANEMIA, UNSPECIFIED 03/10/2017 QUAN YEPEZ MD Ot D72.819 DECREASED WHITE BLOOD CELL COUNT, UNSPEC 03/10/2017 QUAN YEPEZ MD Ot E11. 9 TYPE 2 DIABETES MELLITUS WITHOUT COMPLIC 03/10/2017 QUAN YEPEZ MD, Ot F70 MILD INTELLECTUAL DISABILITIES 03/10/2017 QUAN YEPEZ MD Ot I10 ESSENTIAL (PRIMARY) HYPERTENSION 03/10/2017 QUAN YEPEZ MD, Ot J44. 9 CHRONIC OBSTRUCTIVE PULMONARY DISEASE, U 03/10/2017 QUAN YEPEZ MD, Ot Z79. 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 9 ANEMIA, UNSPECIFIED 03/24/2017 QUAN YEPEZ MD Ot D72.819 DECREASED WHITE BLOOD CELL COUNT, UNSPEC 03/24/2017 QUAN YEPEZ MD Ot E11. 9 TYPE 2 DIABETES MELLITUS WITHOUT COMPLIC 03/24/2017 QUAN YEPEZ MD Ot F70 MILD INTELLECTUAL DISABILITIES 03/24/2017 QUAN YEPEZ MD Ot I10 ESSENTIAL (PRIMARY) HYPERTENSION 03/24/2017 QUAN YEPEZ MD, Ot J44. 9 CHRONIC OBSTRUCTIVE PULMONARY DISEASE, U 03/24/2017 QUAN YEPEZ MD Ot Z79. 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 9 TYPE 2 DIABETES MELLITUS WITHOUT COMPLIC 04/15/2017 QUAN YEPEZ MD Ot F70 MILD INTELLECTUAL DISABILITIES 04/15/2017 QUAN YEPEZ MD Ot I10 ESSENTIAL (PRIMARY) HYPERTENSION 04/15/2017 QUAN YEPEZ MD Ot J44. 9 CHRONIC OBSTRUCTIVE PULMONARY DISEASE, U 04/15/2017 QUAN YEPEZ MD Ot R79. 89 OTHER SPECIFIED ABNORMAL FINDINGS OF BLO 04/15/2017 QUAN YEPEZ MD Ot Z79. 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 9 TYPE 2 DIABETES MELLITUS WITHOUT COMPLIC 05/13/2017 QUAN YEPEZ MD Ot F70 MILD INTELLECTUAL DISABILITIES 05/13/2017 QUAN YEPEZ MD Ot I10 ESSENTIAL (PRIMARY) HYPERTENSION 05/13/2017 QUAN YEPEZ MD Ot J44. 9 CHRONIC OBSTRUCTIVE PULMONARY DISEASE, U 05/13/2017 QUAN YEPEZ MD Ot R79. 89 OTHER SPECIFIED ABNORMAL FINDINGS OF BLO 05/13/2017 QUAN YEPEZ MD Ot Z79. 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 05/13/2017 QUAN YEEPZ MD Ot Z86.718 PERSONAL HISTORY OF OTHER VENOUS THROMBO 05/23/2017 KAUSHAL WHITING APRN Ot E11 .9 TYPE 2 DIABETES MELLITUS WITHOUT COMPLIC 05/23/2017 KAUSHAL WHITING APRN Ot I10 ESSENTIAL (PRIMARY) HYPERTENSION 05/23/2017 KAUSHAL WHITING APRN Ot S01.532A PUNCTURE WOUND W/O FOREIGN BODY OF ORAL 05/23/2017 KAUSHAL WHITING APRN Ot W26.8XXA CONTACT WITH OTHER SHARP OBJECT(S), NEC, 05/23/2017 KAUSHAL WHITING APRN Ot Z79.82 TOP HAT BODY MAKER (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) USE OF ASPIRIN 05/23/2017 KAUSHAL WHITING APRN Ot Z79.84 FPC (CURRENT) USE OF ORAL HYPOGLYC 05/23/2017 KAUSHAL WHITING APRN Ot 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 05/23/2017 KAUSHAL WHITING APRN Ot Z88 .1 ALLERGY STATUS TO OTHER ANTIBIOTIC AGENT 05/25/2017 KAUSHAL WHITING APRN Ot E11 .9 TYPE 2 DIABETES MELLITUS WITHOUT COMPLIC 05/25/2017 KAUSHAL WHITING APRN Ot I10 ESSENTIAL (PRIMARY) HYPERTENSION 05/25/2017 KAUSHAL WHITING APRN Ot S01.532A PUNCTURE WOUND W/O FOREIGN BODY OF ORAL 05/25/2017 KAUSHAL WHITING APRN Ot W26.8XXA CONTACT WITH OTHER SHARP OBJECT(S), NEC, 05/25/2017 KAUSHAL WHITING APRN Ot Z79.82 TOP HAT BODY MAKER (CURRENT) USE OF ASPIRIN 05/25/2017 KAUSHAL WHITING APRN Ot Z79.84 FPC (CURRENT) USE OF ORAL HYPOGLYC 05/25/2017 KAUSHAL WHITING APRN Ot 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 9 TYPE 2 DIABETES MELLITUS WITHOUT COMPLIC 06/21/2017 QUAN YEPEZ MD Ot F70 MILD INTELLECTUAL DISABILITIES 06/21/2017 QUAN YEPEZ MD Ot I10 ESSENTIAL (PRIMARY) HYPERTENSION 06/21/2017 QUAN YEPEZ MD Ot J44. 9 CHRONIC OBSTRUCTIVE PULMONARY DISEASE, U 06/21/2017 QUAN YEPEZ MD Ot R79. 89 OTHER SPECIFIED ABNORMAL FINDINGS OF BLO 06/21/2017 QUAN YEPEZ MD Ot Z79. 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 9 TYPE 2 DIABETES MELLITUS WITHOUT COMPLIC 09/08/2017 QUAN YEPEZ MD Ot F70 MILD INTELLECTUAL DISABILITIES 09/08/2017 QUAN YEPEZ MD Ot I10 ESSENTIAL (PRIMARY) HYPERTENSION 09/08/2017 QUAN YEPEZ MD Ot J44. 9 CHRONIC OBSTRUCTIVE PULMONARY DISEASE, U 09/08/2017 QUAN YEPEZ MD Ot R79. 89 OTHER SPECIFIED ABNORMAL FINDINGS OF BLO 09/08/2017 QUAN YEPEZ MD Ot Z79. 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 9 TYPE 2 DIABETES MELLITUS WITHOUT COMPLIC 09/20/2017 QUAN YEPEZ MD Ot F70 MILD INTELLECTUAL DISABILITIES 09/20/2017 QUAN YEPEZ MD Ot I10 ESSENTIAL (PRIMARY) HYPERTENSION 09/20/2017 QUAN YEPEZ MD Ot J44. 9 CHRONIC OBSTRUCTIVE PULMONARY DISEASE, U 09/20/2017 QUAN YEPEZ MD Ot R79. 89 OTHER SPECIFIED ABNORMAL FINDINGS OF BLO 09/20/2017 QUAN YEPEZ MD Ot Z79. 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 9 TYPE 2 DIABETES MELLITUS WITHOUT COMPLIC 10/11/2017 QUAN YEPEZ MD Ot F70 MILD INTELLECTUAL DISABILITIES 10/11/2017 QUAN YEPEZ MD Ot I10 ESSENTIAL (PRIMARY) HYPERTENSION 10/11/2017 QUAN YEPEZ MD Ot J44. 9 CHRONIC OBSTRUCTIVE PULMONARY DISEASE, U 10/11/2017 QUAN YEPEZ MD Ot R79. 89 OTHER SPECIFIED ABNORMAL FINDINGS OF BLO 10/11/2017 QUAN YEPEZ MD Ot Z79. 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 9 TYPE 2 DIABETES MELLITUS WITHOUT COMPLIC 10/18/2017 QUAN YEPEZ MD Ot F70 MILD INTELLECTUAL DISABILITIES 10/18/2017 QUAN YEPEZ MD Ot I10 ESSENTIAL (PRIMARY) HYPERTENSION 10/18/2017 QUAN YEPEZ MD Ot J44. 9 CHRONIC OBSTRUCTIVE PULMONARY DISEASE, U 10/18/2017 QUAN YEPEZ MD Ot R79. 89 OTHER SPECIFIED ABNORMAL FINDINGS OF BLO 10/18/2017 QUAN YEPEZ MD Ot Z79. 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 9 TYPE 2 DIABETES MELLITUS WITHOUT COMPLIC 03/09/2018 QUAN YEPEZ MD Ot F70 MILD INTELLECTUAL DISABILITIES 03/09/2018 QUAN YEPEZ MD Ot I10 ESSENTIAL (PRIMARY) HYPERTENSION 03/09/2018 QUAN YEPEZ MD Ot J44. 9 CHRONIC OBSTRUCTIVE PULMONARY DISEASE, U 03/09/2018 QUAN YEPEZ MD Ot R79. 89 OTHER SPECIFIED ABNORMAL FINDINGS OF BLO 03/09/2018 QUAN YEPEZ MD Ot Z79. 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 9 TYPE 2 DIABETES MELLITUS WITHOUT COMPLIC 03/10/2018 QUAN YEPEZ MD Ot F70 MILD INTELLECTUAL DISABILITIES 03/10/2018 QUAN YEPEZ MD Ot I10 ESSENTIAL (PRIMARY) HYPERTENSION 03/10/2018 QUAN YEPEZ MD Ot J44. 9 CHRONIC OBSTRUCTIVE PULMONARY DISEASE, U 03/10/2018 QUAN YEPEZ MD Ot R79. 89 OTHER SPECIFIED ABNORMAL FINDINGS OF BLO 03/10/2018 QUAN YEPEZ MD Ot Z79. 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 9 TYPE 2 DIABETES MELLITUS WITHOUT COMPLIC 04/14/2018 QUAN YEPEZ MD Ot F70 MILD INTELLECTUAL DISABILITIES 04/14/2018 QUAN YEPEZ MD Ot I10 ESSENTIAL (PRIMARY) HYPERTENSION 04/14/2018 QUAN YEPEZ MD Ot J44. 9 CHRONIC OBSTRUCTIVE PULMONARY DISEASE, U 04/14/2018 QUAN YEPEZ MD Ot R79. 89 OTHER SPECIFIED ABNORMAL FINDINGS OF BLO 04/14/2018 QUAN YEPEZ MD Ot Z79. 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 9 TYPE 2 DIABETES MELLITUS WITHOUT COMPLIC 04/28/2018 QUAN YEPEZ MD Ot F70 MILD INTELLECTUAL DISABILITIES 04/28/2018 QUAN YEPEZ MD Ot I10 ESSENTIAL (PRIMARY) HYPERTENSION 04/28/2018 QUAN YEPEZ MD, Ot J44. 9 CHRONIC OBSTRUCTIVE PULMONARY DISEASE, U 04/28/2018 QUAN YEPEZ MD Ot R79. 89 OTHER SPECIFIED ABNORMAL FINDINGS OF BLO 04/28/2018 QUAN YEPEZ MD Ot Z79. 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 9 TYPE 2 DIABETES MELLITUS WITHOUT COMPLIC 06/07/2018 QUAN YEPEZ MD Ot F70 MILD INTELLECTUAL DISABILITIES 06/07/2018 QUAN YEPEZ MD, Ot I10 ESSENTIAL (PRIMARY) HYPERTENSION 06/07/2018 QUAN YEPEZ MD Ot J44. 9 CHRONIC OBSTRUCTIVE PULMONARY DISEASE, U 06/07/2018 QUAN YEPEZ MD Ot R79. 89 OTHER SPECIFIED ABNORMAL FINDINGS OF BLO 06/07/2018 QUAN YEPEZ MD Ot Z79. 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 9 TYPE 2 DIABETES MELLITUS WITHOUT COMPLIC 08/01/2018 ARLEY HARDWICK MD, Ot I10 ESSENTIAL (PRIMARY) HYPERTENSION 08/01/2018 ARLEY HARDWICK MD Ot I25. 3 ANEURYSM OF HEART 08/01/2018 ARLEY HARDWICK MD Ot R06. 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 9 TYPE 2 DIABETES MELLITUS WITHOUT COMPLIC 08/02/2018 ARLEY HARWDICK MD Ot I10 ESSENTIAL (PRIMARY) HYPERTENSION 08/02/2018 ARLEY HARDWICK MD Ot I25. 3 ANEURYSM OF HEART 08/02/2018 ARLEY HARDWICK MD Ot R06. 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 9 TYPE 2 DIABETES MELLITUS WITHOUT COMPLIC 08/30/2018 QUAN YEPEZ MD Ot F70 MILD INTELLECTUAL DISABILITIES 08/30/2018 XUN MD, PATRICIO-ALICE Ot I10 ESSENTIAL (PRIMARY) HYPERTENSION 08/30/2018 QUAN YEPEZ MD Ot J44. 9 CHRONIC OBSTRUCTIVE PULMONARY DISEASE, U 08/30/2018 QUAN YEPEZ MD Ot R79. 89 OTHER SPECIFIED ABNORMAL FINDINGS OF BLO 08/30/2018 QUAN YEPEZ MD Ot Z79. 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 9 TYPE 2 DIABETES MELLITUS WITHOUT COMPLIC 08/30/2018 QUAN YEPEZ MD, Ot F70 MILD INTELLECTUAL DISABILITIES 08/30/2018 QUAN YEPEZ MD, Ot I10 ESSENTIAL (PRIMARY) HYPERTENSION 08/30/2018 QUAN YEPEZ MD, Ot J44. 9 CHRONIC OBSTRUCTIVE PULMONARY DISEASE, U 08/30/2018 QUAN YEPEZ MD, Ot R79. 89 OTHER SPECIFIED ABNORMAL FINDINGS OF BLO 08/30/2018 QUAN YEPEZ MD, Ot Z79. 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 00 DIAB MATT WO COMPL, TYPE II OR UNSPEC TY 08/30/2018 QUAN YEPEZ MD Ot 285. 9 ANEMIA NOS 08/30/2018 QUAN YEPEZ MD Ot 288. 50 LEUKOCYTOPENIA, UNSPECIFIED 08/30/2018 QUAN YEPEZ MD Ot 317 MILD INTELLECTUAL DISABILITIES 08/30/2018 QUAN YEPEZ MD Ot 401. 9 HYPERTENSION NOS 08/30/2018 QUAN YEPEZ MD Ot 496 CHR AIRWAY OBSTRUCT NEC 08/30/2018 QUAN YEPEZ MD, Ot V12. 51 HX-VENOUS THROMBOSIS EMBOLISM 08/30/2018 QUAN YEPEZ MD, Ot V12. 55 PERSONAL HISTORY OF PULMONARY EMBOLISM 08/30/2018 QUAN YEPEZ MD, Ot V58. 66 LONG-TERM (CURRENT) USE OF ASPIRIN 08/30/2018 QUAN YEPEZ MD, Ot V58. 69 OTH MED,LT,CURRENT USE 08/30/2018 GELLENDER DOLE Ot 783.21 LOSS OF WEIGHT 08/30/2018 GELLENDER DO, LE Serrano Ot 783.21 LOSS OF WEIGHT 08/30/2018 GELLENDER DO, LE Serrano Ot 789.01 ABDOMINAL PAIN, RIGHT UPPER QUADRANT 08/30/2018 GELLENDER DOLE Ot 793.11 SOLITARY PULMONARY NODULE 08/30/2018 ARLEY HARDWICK MD Ot 401. 9 HYPERTENSION NOS 08/30/2018 ARLEY HARDWICK MD Ot 780. 2 SYNCOPE AND COLLAPSE 08/30/2018 ARLEY HARDWICK MD Ot 786. 09 RESPIRATORY ABNORM NEC 08/30/2018 ARLEY HARDWICK MD Ot 786. 50 CHEST PAIN NOS 08/30/2018 QUAN YEPEZ MD Ot D64. 9 ANEMIA, UNSPECIFIED 08/30/2018 QUAN YEPEZ MD, Ot D72.819 DECREASED WHITE BLOOD CELL COUNT, UNSPEC 08/30/2018 QUAN YEPEZ MD Ot E11. 9 TYPE 2 DIABETES MELLITUS WITHOUT COMPLIC 08/30/2018 QUAN YEPEZ MD Ot F70 MILD INTELLECTUAL DISABILITIES 08/30/2018 QUAN YEPEZ MD, Ot I10 ESSENTIAL (PRIMARY) HYPERTENSION 08/30/2018 QUAN YEPEZ MD, Ot J44. 9 CHRONIC OBSTRUCTIVE PULMONARY DISEASE, U 08/30/2018 QUAN YEPEZ MD, Ot Z79. 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 9 ANEMIA, UNSPECIFIED 08/30/2018 QUAN YEPEZ MD, Ot D72.819 DECREASED WHITE BLOOD CELL COUNT, UNSPEC 08/30/2018 QUAN YEPEZ MD, Ot E11. 9 TYPE 2 DIABETES MELLITUS WITHOUT COMPLIC 08/30/2018 QUAN YEPEZ MD, Ot F70 MILD INTELLECTUAL DISABILITIES 08/30/2018 QUAN YEPEZ MD, Ot I10 ESSENTIAL (PRIMARY) HYPERTENSION 08/30/2018 QUAN YEPEZ MD, Ot J44. 9 CHRONIC OBSTRUCTIVE PULMONARY DISEASE, U 08/30/2018 QUAN YEPEZ MD, Ot Z79. 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 9 ANEMIA, UNSPECIFIED 08/30/2018 ARLEY HARDWICK MD, Ot D72.819 DECREASED WHITE BLOOD CELL COUNT, UNSPEC 08/30/2018 ARLEY HARDWICK MD Ot E78. 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 9 TYPE 2 DIABETES MELLITUS WITHOUT COMPLIC 08/30/2018 QUAN YEPEZ MD, Ot F70 MILD INTELLECTUAL DISABILITIES 08/30/2018 QUAN YEPEZ MD, Ot I10 ESSENTIAL (PRIMARY) HYPERTENSION 08/30/2018 QUAN YEPEZ MD, Ot J44. 9 CHRONIC OBSTRUCTIVE PULMONARY DISEASE, U 08/30/2018 QUAN YEPEZ MD, Ot R79. 89 OTHER SPECIFIED ABNORMAL FINDINGS OF BLO 08/30/2018 QUAN YEPEZ MD Ot Z79. 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 9 TYPE 2 DIABETES MELLITUS WITHOUT COMPLIC 08/30/2018 ARLEY HARDWICK MD Ot I10 ESSENTIAL (PRIMARY) HYPERTENSION 08/30/2018 ARLEY HARDWICK MD Ot I25. 3 ANEURYSM OF HEART 08/30/2018 ARLEY HARDWICK MD Ot R06. 02 SHORTNESS OF BREATH 08/30/2018 ARLEY HARDWICK MD, Ot 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 08/30/2018 ARLEY HARDWICK MD, Ot Z86.718 PERSONAL HISTORY OF OTHER VENOUS THROMBO 08/30/2018 QUAN YEPEZ MD Ot D61.818 OTHER PANCYTOPENIA 08/30/2018 QUAN YEPEZ MD Ot E11. 9 TYPE 2 DIABETES MELLITUS WITHOUT COMPLIC 08/30/2018 QUAN YEPEZ MD, Ot F70 MILD INTELLECTUAL DISABILITIES 08/30/2018 QUAN YEPEZ MD Ot I10 ESSENTIAL (PRIMARY) HYPERTENSION 08/30/2018 QUAN YEPEZ MD, Ot J44. 9 CHRONIC OBSTRUCTIVE PULMONARY DISEASE, U 08/30/2018 QUAN YEPEZ MD, Ot R79. 89 OTHER SPECIFIED ABNORMAL FINDINGS OF BLO 08/30/2018 QUAN YEPEZ MD, Ot Z79. 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 9 TYPE 2 DIABETES MELLITUS WITHOUT COMPLIC 09/01/2018 QUAN YEPEZ MD Ot F70 MILD INTELLECTUAL DISABILITIES 09/01/2018 QUAN YEPEZ MD, Ot I10 ESSENTIAL (PRIMARY) HYPERTENSION 09/01/2018 QUAN YEPEZ MD, Ot J44. 9 CHRONIC OBSTRUCTIVE PULMONARY DISEASE, U 09/01/2018 QUAN YEPEZ MD, Ot R79. 89 OTHER SPECIFIED ABNORMAL FINDINGS OF BLO 09/01/2018 QUAN YEPEZ MD, Ot Z79. 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 9 TYPE 2 DIABETES MELLITUS WITHOUT COMPLIC 09/21/2018 ARLEY HARDWICK MD, Ot I10 ESSENTIAL (PRIMARY) HYPERTENSION 09/21/2018 ARLEY HARDWICK MD Ot I25. 3 ANEURYSM OF HEART 09/21/2018 ARLEY HARDWICK MD Ot R06. 02 SHORTNESS OF BREATH 09/21/2018 ARLEY HARDWICK MD Ot 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 09/21/2018 ARLEY HARDWICK MD, Ot Z86.718 PERSONAL HISTORY OF OTHER VENOUS THROMBO 09/22/2018 ARLEY HARDWICK MD, Ot E11. 9 TYPE 2 DIABETES MELLITUS WITHOUT COMPLIC 09/22/2018 ARLEY HARDWICK MD Ot I10 ESSENTIAL (PRIMARY) HYPERTENSION 09/22/2018 ARLEY HARDWICK MD Ot I25. 3 ANEURYSM OF HEART 09/22/2018 ARLEY HARDWICK MD Ot R06. 02 SHORTNESS OF BREATH 09/22/2018 ARLEY HARDWICK MD Ot 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 09/22/2018 ARLEY HARDWICK MD, Ot Z86.718 PERSONAL HISTORY OF OTHER VENOUS THROMBO 09/27/2018 QUAN YEPEZ MD Ot D61.818 OTHER PANCYTOPENIA 09/27/2018 QUAN YEPEZ MD, Ot E11. 9 TYPE 2 DIABETES MELLITUS WITHOUT COMPLIC 09/27/2018 QUAN YPEEZ MD Ot F70 MILD INTELLECTUAL DISABILITIES 09/27/2018 QUAN YEPEZ MD Ot I10 ESSENTIAL (PRIMARY) HYPERTENSION 09/27/2018 QUAN YEPEZ MD Ot J44. 9 CHRONIC OBSTRUCTIVE PULMONARY DISEASE, U 09/27/2018 QUAN YEPEZ MD Ot R79. 89 OTHER SPECIFIED ABNORMAL FINDINGS OF BLO 09/27/2018 QUAN YEPEZ MD Ot Z79. 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 9 TYPE 2 DIABETES MELLITUS WITHOUT COMPLIC 09/28/2018 QUAN YEPEZ MD Ot F70 MILD INTELLECTUAL DISABILITIES 09/28/2018 QUAN YEPEZ MD Ot I10 ESSENTIAL (PRIMARY) HYPERTENSION 09/28/2018 QUAN YEPEZ MD Ot J44. 9 CHRONIC OBSTRUCTIVE PULMONARY DISEASE, U 09/28/2018 QUAN YEPEZ MD Ot R79. 89 OTHER SPECIFIED ABNORMAL FINDINGS OF BLO 09/28/2018 QUAN YEPEZ MD Ot Z79. 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 9 TYPE 2 DIABETES MELLITUS WITHOUT COMPLIC 11/28/2018 QUAN YEPEZ MD Ot F70 MILD INTELLECTUAL DISABILITIES 11/28/2018 QUAN YEPEZ MD Ot I10 ESSENTIAL (PRIMARY) HYPERTENSION 11/28/2018 QUAN YEPEZ MD Ot J44. 9 CHRONIC OBSTRUCTIVE PULMONARY DISEASE, U 11/28/2018 QUAN YEPEZ MD Ot R79. 89 OTHER SPECIFIED ABNORMAL FINDINGS OF BLO 11/28/2018 QUAN YEPEZ MD, Ot Z79. 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 9 TYPE 2 DIABETES MELLITUS WITHOUT COMPLIC 11/29/2018 QUAN YEPEZ MD, Ot F70 MILD INTELLECTUAL DISABILITIES 11/29/2018 QUAN YEPEZ MD, Ot I10 ESSENTIAL (PRIMARY) HYPERTENSION 11/29/2018 QUAN YEPEZ MD, Ot J44. 9 CHRONIC OBSTRUCTIVE PULMONARY DISEASE, U 11/29/2018 QUAN YEPEZ MD Ot R79. 89 OTHER SPECIFIED ABNORMAL FINDINGS OF BLO 11/29/2018 QUAN YEPEZ MD, Ot Z79. 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 9 ANEMIA, UNSPECIFIED 12/26/2018 QUAN YEPEZ MD, Ot D72.819 DECREASED WHITE BLOOD CELL COUNT, UNSPEC 12/26/2018 QUAN YEPEZ MD, Ot E11. 9 TYPE 2 DIABETES MELLITUS WITHOUT COMPLIC 12/26/2018 QUAN YEPEZ MD Ot F70 MILD INTELLECTUAL DISABILITIES 12/26/2018 QUAN YEPEZ MD Ot I10 ESSENTIAL (PRIMARY) HYPERTENSION 12/26/2018 QUAN YEPEZ MD, Ot J44. 9 CHRONIC OBSTRUCTIVE PULMONARY DISEASE, U 12/26/2018 QUAN YEPEZ MD, Ot R79. 89 OTHER SPECIFIED ABNORMAL FINDINGS OF BLO 12/26/2018 QUAN YEPEZ MD, Ot Z79. 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 9 TYPE 2 DIABETES MELLITUS WITHOUT COMPLIC 01/12/2019 ARLEY HARDWICK MD, Ot I10 ESSENTIAL (PRIMARY) HYPERTENSION 01/12/2019 ARLEY HARDWICK MD, Ot I25. 3 ANEURYSM OF HEART 01/12/2019 ARLEY HARDWICK MD, Ot R06. 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 9 HYPERTENSION NOS 01/16/2019 ARLEY HARDWICK MD Ot 780. 2 SYNCOPE AND COLLAPSE 01/16/2019 ARLEY HARDWICK MD Ot 786. 09 RESPIRATORY ABNORM NEC 01/16/2019 ARLEY HARDWICK MD Ot 786. 50 CHEST PAIN NOS 01/16/2019 QUAN YEPEZ MD, Ot D64. 9 ANEMIA, UNSPECIFIED 01/16/2019 QUAN YEPEZ MD, Ot D72.819 DECREASED WHITE BLOOD CELL COUNT, UNSPEC 01/16/2019 QUAN YEPEZ MD, Ot E11. 9 TYPE 2 DIABETES MELLITUS WITHOUT COMPLIC 01/16/2019 QUAN YEPEZ MD, Ot F70 MILD INTELLECTUAL DISABILITIES 01/16/2019 QUAN YEPEZ MD, Ot I10 ESSENTIAL (PRIMARY) HYPERTENSION 01/16/2019 QUAN YEPEZ MD, Ot J44. 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 9 ANEMIA, UNSPECIFIED 01/16/2019 QUAN YEPEZ MD, Ot D72.819 DECREASED WHITE BLOOD CELL COUNT, UNSPEC 01/16/2019 QUAN YEPEZ MD Ot E11. 9 TYPE 2 DIABETES MELLITUS WITHOUT COMPLIC 01/16/2019 QUAN YEPEZ MD, Ot F70 MILD INTELLECTUAL DISABILITIES 01/16/2019 QUAN YEPEZ MD, Ot I10 ESSENTIAL (PRIMARY) HYPERTENSION 01/16/2019 QUAN YEPEZ MD, Ot J44. 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 9 ANEMIA, UNSPECIFIED 01/16/2019 ARLEY HARDWICK MD, Ot D72.819 DECREASED WHITE BLOOD CELL COUNT, UNSPEC 01/16/2019 ARLEY HARDWICK MD Ot E78. 2 MIXED HYPERLIPIDEMIA 01/16/2019 ARLEY HARDWICK MD, Ot I10 ESSENTIAL (PRIMARY) HYPERTENSION 01/16/2019 ARLEY HARDWICK MD, Ot 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 01/16/2019 ARLEY HARDWICK MD, Ot Z86.718 PERSONAL HISTORY OF OTHER VENOUS THROMBO 01/16/2019 ARLEY HARDWICK MD, Ot E11. 9 TYPE 2 DIABETES MELLITUS WITHOUT COMPLIC 01/16/2019 ARLEY HARDWICK MD, Ot I10 ESSENTIAL (PRIMARY) HYPERTENSION 01/16/2019 ARLEY HARDWICK MD, Ot I25. 3 ANEURYSM OF HEART 01/16/2019 ARLEY HARDWICK MD Ot R06. 02 SHORTNESS OF BREATH 01/16/2019 ARLEY HARDWICK MD, Ot 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 01/16/2019 ARLEY HARDWICK MD, Ot Z86.718 PERSONAL HISTORY OF OTHER VENOUS THROMBO 01/16/2019 QUAN YEPEZ MD, Ot D61.818 OTHER PANCYTOPENIA 01/16/2019 QUAN YEPEZ MD, Ot D64. 9 ANEMIA, UNSPECIFIED 01/16/2019 QUAN YEPEZ MD, Ot D72.819 DECREASED WHITE BLOOD CELL COUNT, UNSPEC 01/16/2019 QUAN YEPEZ MD, Ot E11. 9 TYPE 2 DIABETES MELLITUS WITHOUT COMPLIC 01/16/2019 QUAN YEPEZ MD, Ot F70 MILD INTELLECTUAL DISABILITIES 01/16/2019 QUAN YEPEZ MD, Ot I10 ESSENTIAL (PRIMARY) HYPERTENSION 01/16/2019 QUAN YEPEZ MD, Ot J44. 9 CHRONIC OBSTRUCTIVE PULMONARY DISEASE, U 01/16/2019 QUAN YEPEZ MD, Ot R79. 89 OTHER SPECIFIED ABNORMAL FINDINGS OF BLO 01/16/2019 QUAN YEPEZ MD, Ot Z79. 82 FPC (CURRENT) USE OF ASPIRIN 01/16/2019 QUAN YEPEZ MD, Ot Z79.899 OTHER TOP HAT BODY MAKER (CURRENT) DRUG THERAPY 01/16/2019 QUAN YEPEZ MD, Ot 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 01/16/2019 QUAN YEPEZ MD, Ot Z86.718 PERSONAL HISTORY OF OTHER VENOUS THROMBO 01/25/2019 PATRICIA DURHAM MD, Ot D64.9 ANEMIA, UNSPECIFIED 01/25/2019 PATRICIA DURHAM MD, Ot E11.9 TYPE 2 DIABETES MELLITUS WITHOUT COMPLIC 01/25/2019 HERMINIO MD, PATRICIA D Ot I10 ESSENTIAL (PRIMARY) HYPERTENSION 01/25/2019 PATRICIA DURHAM MD Ot K21.9 GASTRO-ESOPHAGEAL REFLUX DISEASE WITHOUT 01/25/2019 PATRICIA DURHAM MD Ot R07.89 OTHER CHEST PAIN 01/25/2019 PATRICIA DURHAM MD, Ot R07.9 CHEST PAIN, UNSPECIFIED 01/25/2019 PATRICIA DURHAM MD Ot R10.13 EPIGASTRIC PAIN 01/25/2019 PATRICIA DURHAM MD Ot Z79.82 TOP HAT BODY MAKER (CURRENT) USE OF ASPIRIN 01/25/2019 PATRICIA DURHAM MD Ot Z79.84 TOP HAT BODY MAKER (CURRENT) USE OF ORAL HYPOGLYC 01/25/2019 PATRICIA DURHAM MD, Ot Z82.49 FAMILY HX OF ISCHEM HEART DIS AND OTH DI 01/25/2019 PATRICIA DURHAM MD Ot 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 01/25/2019 PATRICIA DURHAM MD, Ot Z87.891 PERSONAL HISTORY OF NICOTINE DEPENDENCE 01/31/2019 Ot 250.00 LAUREN B MATT WO COMPL, TYPE II OR UNSPEC TY 01/31/2019 Ot 285.9 ANEM IA NOS 01/31/2019 Ot 288.50 JERARDO KOCYTOPENIA, UNSPECIFIED 01/31/2019 Ot 319 MENTAL RETARDATION NOS 01/31/2019 Ot 401.9 HYPE RTENSION NOS 01/31/2019 Ot 415.19 OTH PULMON EMBOLISM/INFARCT 01/31/2019 Ot 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 9 ANEMIA, UNSPECIFIED 01/31/2019 QUAN YEPEZ MD Ot D72.819 DECREASED WHITE BLOOD CELL COUNT, UNSPEC 01/31/2019 QUAN YEPEZ MD Ot E11. 9 TYPE 2 DIABETES MELLITUS WITHOUT COMPLIC 01/31/2019 QUAN YEPEZ MD, Ot F70 MILD INTELLECTUAL DISABILITIES 01/31/2019 QUAN YEPEZ MD Ot I10 ESSENTIAL (PRIMARY) HYPERTENSION 01/31/2019 QUAN YEPEZ MD, Ot J44. 9 CHRONIC OBSTRUCTIVE PULMONARY DISEASE, U 01/31/2019 QUAN YEPEZ MD, Ot Z79. 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 9 ANEMIA, UNSPECIFIED 01/31/2019 ARLEY HARDWICK MD, Ot D72.819 DECREASED WHITE BLOOD CELL COUNT, UNSPEC 01/31/2019 ARLEY HARDWICK MD Ot E78. 2 MIXED HYPERLIPIDEMIA 01/31/2019 ARLEY HARDWICK MD, Ot I10 ESSENTIAL (PRIMARY) HYPERTENSION 01/31/2019 ARLEY HARDWICK MD, Ot 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 01/31/2019 ARLEY HARDWICK MD, Ot Z86.718 PERSONAL HISTORY OF OTHER VENOUS THROMBO 02/09/2019 LE GUEVARA DO Ot 783.21 LOSS OF WEIGHT 02/09/2019 LE GUEVARA DO Ot 783.21 LOSS OF WEIGHT 02/09/2019 LE GUEVARA DO Ot 789.01 ABDOMINAL PAIN, RIGHT UPPER QUADRANT 02/09/2019 LE GUEVARA DO Ot 793.11 SOLITARY PULMONARY NODULE 02/09/2019 ARLEY HARDWICK MD Ot 401. 9 HYPERTENSION NOS 02/09/2019 ARLEY HARDWICK MD Ot 780. 2 SYNCOPE AND COLLAPSE 02/09/2019 ARLEY HARDWICK MD Ot 786. 09 RESPIRATORY ABNORM NEC 02/09/2019 ARLEY HARDWICK MD Ot 786. 50 CHEST PAIN NOS 02/09/2019 QUAN YEPEZ MD, Ot D64. 9 ANEMIA, UNSPECIFIED 02/09/2019 QUAN YEPEZ MD, Ot D72.819 DECREASED WHITE BLOOD CELL COUNT, UNSPEC 02/09/2019 QUAN YEPEZ MD Ot E11. 9 TYPE 2 DIABETES MELLITUS WITHOUT COMPLIC 02/09/2019 QUAN YEPEZ MD, Ot F70 MILD INTELLECTUAL DISABILITIES 02/09/2019 QUAN YEPEZ MD, Ot I10 ESSENTIAL (PRIMARY) HYPERTENSION 02/09/2019 QUAN YEPEZ MD, Ot J44. 9 CHRONIC OBSTRUCTIVE PULMONARY DISEASE, U 02/09/2019 QUAN YEPEZ MD, Ot Z79. 82 TOP HAT BODY MAKER (CURRENT) USE OF ASPIRIN 02/09/2019 QUAN YEPEZ MD, Ot 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 02/09/2019 QUAN YEPEZ MD, Ot Z86.718 PERSONAL HISTORY OF OTHER VENOUS THROMBO 02/09/2019 GELLENDER DO, LE Serrano Ot K59.00 CONSTIPATION, UNSPECIFIED 02/09/2019 GELLENDER DO, LE A Ot N32.89 OTHER SPECIFIED DISORDERS OF BLADDER 02/09/2019 GELLENDER DO, LE Serrano Ot R63.4 ABNORMAL WEIGHT LOSS 02/09/2019 GELLENDER DO, LE Serrano Ot R74.8 ABNORMAL LEVELS OF OTHER SERUM ENZYMES 02/09/2019 QUAN YEPEZ MD, Ot D64. 9 ANEMIA, UNSPECIFIED 02/09/2019 QUAN YEPEZ MD, Ot D72.819 DECREASED WHITE BLOOD CELL COUNT, UNSPEC 02/09/2019 QUAN YEPEZ MD Ot E11. 9 TYPE 2 DIABETES MELLITUS WITHOUT COMPLIC 02/09/2019 QUAN YEPEZ MD, Ot F70 MILD INTELLECTUAL DISABILITIES 02/09/2019 QUAN YEPEZ MD, Ot I10 ESSENTIAL (PRIMARY) HYPERTENSION 02/09/2019 QUAN YEPEZ MD, Ot J44. 9 CHRONIC OBSTRUCTIVE PULMONARY DISEASE, U 02/09/2019 QUAN YEPEZ MD, Ot Z79. 82 TOP HAT BODY MAKER (CURRENT) USE OF ASPIRIN 02/09/2019 QUAN YEPEZ MD, Ot 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 02/09/2019 QUAN YEPEZ MD, Ot Z86.718 PERSONAL HISTORY OF OTHER VENOUS THROMBO 02/09/2019 ARLEY HARDWICK MD, Ot D64. 9 ANEMIA, UNSPECIFIED 02/09/2019 ARLEY HARDWICK MD, Ot D72.819 DECREASED WHITE BLOOD CELL COUNT, UNSPEC 02/09/2019 ARLEY HARDWICK MD Ot E78. 2 MIXED HYPERLIPIDEMIA 02/09/2019 ARLEY HARDWICK MD, Ot I10 ESSENTIAL (PRIMARY) HYPERTENSION 02/09/2019 MULU MD, BASHAR J Ot 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 02/09/2019 ARLEY HARDWICK MD Ot Z86.718 PERSONAL HISTORY OF OTHER VENOUS THROMBO 02/09/2019 ARLEY HARDWICK MD Ot E11. 9 TYPE 2 DIABETES MELLITUS WITHOUT COMPLIC 02/09/2019 ARLEY HARDWICK MD, Ot I10 ESSENTIAL (PRIMARY) HYPERTENSION 02/09/2019 ARLEY HARDWICK MD Ot I25. 3 ANEURYSM OF HEART 02/09/2019 ARLEY HARDWICK MD Ot R06. 02 SHORTNESS OF BREATH 02/09/2019 ARLEY HARDWICK MD Ot 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 02/09/2019 ARLEY HARDWICK MD, Ot Z86.718 PERSONAL HISTORY OF OTHER VENOUS THROMBO 02/09/2019 QUAN YEPEZ MD, Ot D61.818 OTHER PANCYTOPENIA 02/09/2019 QUAN YEPEZ MD, Ot D64. 9 ANEMIA, UNSPECIFIED 02/09/2019 QUAN YEPEZ MD, Ot D72.819 DECREASED WHITE BLOOD CELL COUNT, UNSPEC 02/09/2019 QUAN YEPEZ MD, Ot E11. 9 TYPE 2 DIABETES MELLITUS WITHOUT COMPLIC 02/09/2019 QUAN YEPEZ MD, Ot F70 MILD INTELLECTUAL DISABILITIES 02/09/2019 QUAN YEPEZ MD, Ot I10 ESSENTIAL (PRIMARY) HYPERTENSION 02/09/2019 QUAN YEPEZ MD, Ot J44. 9 CHRONIC OBSTRUCTIVE PULMONARY DISEASE, U 02/09/2019 QUAN YEPEZ MD, Ot R79. 89 OTHER SPECIFIED ABNORMAL FINDINGS OF BLO 02/09/2019 QUAN YEPEZ MD Ot Z79. 82 TOP HAT BODY MAKER (CURRENT) USE OF ASPIRIN 02/09/2019 QUAN YEPEZ MD, Ot Z79.899 OTHER TOP HAT BODY MAKER (CURRENT) DRUG THERAPY 02/09/2019 QUAN YEPEZ MD, Ot 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 02/09/2019 QAUN YEPEZ MD, Ot Z86.718 PERSONAL HISTORY OF OTHER VENOUS THROMBO 02/09/2019 ARLEY HARDWICK MD Ot E11. 9 TYPE 2 DIABETES MELLITUS WITHOUT COMPLIC 02/09/2019 ARLEY HARDWICK MD, Ot F79 UNSPECIFIED INTELLECTUAL DISABILITIES 02/09/2019 ARLEY HARDWICK MD Ot R07. 9 CHEST PAIN, UNSPECIFIED 02/09/2019 MULU ORTEGA, ARLEY Chaves Ot 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 02/19/2019 QUAN YEPEZ MD, Ot D64. 9 ANEMIA, UNSPECIFIED 02/19/2019 QUAN YEPEZ MD, Ot D72.819 DECREASED WHITE BLOOD CELL COUNT, UNSPEC 02/19/2019 QUAN YEPEZ MD, Ot E11. 9 TYPE 2 DIABETES MELLITUS WITHOUT COMPLIC 02/19/2019 QUAN YEPEZ MD, Ot F70 MILD INTELLECTUAL DISABILITIES 02/19/2019 QUAN YEPEZ MD, Ot I10 ESSENTIAL (PRIMARY) HYPERTENSION 02/19/2019 QUAN YEPEZ MD, Ot J44. 9 CHRONIC OBSTRUCTIVE PULMONARY DISEASE, U 02/19/2019 QUAN YEPEZ MD, Ot Z79. 82 FPC (CURRENT) USE OF ASPIRIN 02/19/2019 QUAN YEPEZ MD, Ot 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 02/19/2019 QUAN YEPEZ MD, Ot Z86.718 PERSONAL HISTORY OF OTHER VENOUS THROMBO Procedures There is no data. Results Test Result Range Complete blood count (CBC) with automate d white blood cell (WBC) differential - 08/30/18 15:23 Blood leukocytes automated count (number/volume) 2.9 10*3/uL 4.3-11.0 Blood erythrocytes automated count (number/volume) 4.21 10*6/uL 4.35-5.85 Venous blood hemoglobin measurement (mass/volume) 13.8 g/dL 13.3-17.7 Blood hematocrit (volume fraction) 41 % 40-54 Automated erythrocyte mean corpuscular volume 97 [ foz_us] 80-99 Automated erythrocyte mean corpuscular h emoglobin (mass per erythrocyte) 33 pg 25-34 Automated erythrocyte mean corpuscular h emoglobin concentration measurement (mass/volume) 34 g/dL 32-36 Automated erythrocyte distribution width ratio 12. 8 % 10.0- 14.5 Automated blood platelet count (count/volume) 147 10*3/uL 130-400 Automated blood platelet mean volume measurement 8.3 [foz_us] 7.4-10.4 Automated blood neutrophils/100 leukocytes 41 % 42-75 Automated blood lymphocytes/100 leukocytes 51 % 12-44 Blood monocytes/100 leukocytes 7 % 0-12 Automated blood eosinophils/100 leukocytes 1 % 0-10 Automated blood basophils/100 leukocytes 0 % 0-10 Blood neutrophils automated count (number/volume) 1.2 10*3 1.8-7.8 Blood lymphocytes automated count (number/volume) 1.5 10*3 1.0-4.0 Blood monocytes automated count (number/volume) 0. 2 10*3 0.0-1.0 Automated eosinophil count 0.0 10*3/uL 0 .0-0.3 Automated blood basophil count (count/volume) 0.0 10*3/uL 0.0-0.1 Comprehensive metabolic panel - 08/30/18 15:23 Serum or plasma sodium measurement (moles/volume) 142 mmol/L 135-145 Serum or plasma potassium measurement (moles/volume) 4.4 mmol/L 3.6-5.0 Serum or plasma chloride measurement (moles/volume) 104 mmol/L 98-107 Carbon dioxide 28 mmol/L 21-32 Serum or plasma anion gap determination (moles/volume) 10 mmol/L 5-14 Serum or plasma urea nitrogen measurement (mass/volume ) 28 mg/dL 7-18 Serum or plasma creatinine measurement (mass/volume) 1.02 mg/dL 0.60-1.30 Serum or plasma urea nitrogen/creatinine mass ratio 27 NRG Serum or plasma creatinine measurement w ith calculation of estimated glomerular filtration rate > NRG Serum or plasma glucose measurement (mass/volume) 107 mg/dL 70-105 Serum or plasma calcium measurement (mass/volume) 9.9 mg/dL 8.5-10.1 Serum or plasma total bilirubin measurement (mass/volu me) 0.3 mg/dL 0.1-1.0 Serum or plasma alkaline phosphatase parag surement (enzymatic activity/volume) 62 U/L 40-136 Serum or plasma aspartate aminotransfera se measurement (enzymatic activity/volume) 19 U/L 5-34 Serum or plasma alanine aminotransferase measurement (enzymatic activity/volume) 25 U/L 0-55 Serum or plasma protein measurement (mass/volume) 7.1 g/dL 6.4-8.2 Serum or plasma albumin measurement (mass/volume) 4.5 g/dL 3.2-4.5 CALCIUM CORRECTED 9.5 mg/dL 8.5-10.1 Complete blood count (CBC) with automate d white blood cell (WBC) differential - 01/25/19 08:09 Blood leukocytes automated count (number/volume) 2.2 10*3/uL 4.3-11.0 Blood erythrocytes automated count (number/volume) 3.97 10*6/uL 4.35-5.85 Venous blood hemoglobin measurement (mass/volume) 13.1 g/dL 13.3-17.7 Blood hematocrit (volume fraction) 37 % 40-54 Automated erythrocyte mean corpuscular volume 94 [ foz_us] 80-99 Automated erythrocyte mean corpuscular h emoglobin (mass per erythrocyte) 33 pg 25-34 Automated erythrocyte mean corpuscular h emoglobin concentration measurement (mass/volume) 35 g/dL 32-36 Automated erythrocyte distribution width ratio 12. 3 % 10.0- 14.5 Automated blood platelet count (count/volume) 132 10*3/uL 130-400 Automated blood platelet mean volume measurement 8.3 [foz_us] 7.4-10.4 Automated blood neutrophils/100 leukocytes 35 % 42-75 Automated blood lymphocytes/100 leukocytes 54 % 12-44 Blood monocytes/100 leukocytes 10 % 0-12 Automated blood eosinophils/100 leukocytes 1 % 0-10 Automated blood basophils/100 leukocytes 0 % 0-10 Blood neutrophils automated count (number/volume) 0.8 10*3 1.8-7.8 Blood lymphocytes automated count (number/volume) 1.2 10*3 1.0-4.0 Blood monocytes automated count (number/volume) 0. 2 10*3 0.0-1.0 Automated eosinophil count 0.0 10*3/uL 0 .0-0.3 Automated blood basophil count (count/volume) 0.0 10*3/uL 0.0-0.1 PT panel in platelet poor plasma by coag ulation assay - 01/25/19 08:09 Prothrombin time (PT) in platelet poor plasma by coagu lation assay 13.8 s 12.2-14.7 INR in platelet poor plasma or blood by coagulation as say 1.0 0.8-1.4 Activated partial thromboplastin time (a PTT) in platelet poor plasma bycoagulation assay - 01/25/19 08:09 Activated partial thromboplastin time (a PTT) in platelet poor plasma bycoagulation assay 39 s 24-35 Comprehensive metabolic panel - 01/25/19 08:09 Serum or plasma sodium measurement (moles/volume) 135 mmol/L 135-145 Serum or plasma potassium measurement (moles/volume) 4.1 mmol/L 3.6-5.0 Serum or plasma chloride measurement (moles/volume) 99 mmol/L 98-107 Carbon dioxide 25 mmol/L 21-32 Serum or plasma anion gap determination (moles/volume) 11 mmol/L 5-14 Serum or plasma urea nitrogen measurement (mass/volume ) 22 mg/dL 7-18 Serum or plasma creatinine measurement (mass/volume) 1.06 mg/dL 0.60-1.30 Serum or plasma urea nitrogen/creatinine mass ratio 21 NRG Serum or plasma creatinine measurement w ith calculation of estimated glomerular filtration rate > NRG Serum or plasma glucose measurement (mass/volume) 125 mg/dL 70-105 Serum or plasma calcium measurement (mass/volume) 8.9 mg/dL 8.5-10.1 Serum or plasma total bilirubin measurement (mass/volu me) 0.6 mg/dL 0.1-1.0 Serum or plasma alkaline phosphatase parag surement (enzymatic activity/volume) 58 U/L 40-136 Serum or plasma aspartate aminotransfera se measurement (enzymatic activity/volume) 23 U/L 5-34 Serum or plasma alanine aminotransferase measurement (enzymatic activity/volume) 25 U/L 0-55 Serum or plasma protein measurement (mass/volume) 6.3 g/dL 6.4-8.2 Serum or plasma albumin measurement (mass/volume) 4.0 g/dL 3.2-4.5 CALCIUM CORRECTED 8.9 mg/dL 8.5-10.1 Magnesium - 01/25/19 08:09 Magnesium 1.6 mg/dL 1.6-2.4 Myoglobin, serum - 01/25/19 08:09 Myoglobin, serum 47.2 ng/mL 10.0-92.0 Lipase - 01/25/19 08:09 Lipase 13 U/L 8-78 Serum or plasma troponin i.cardiac measu rement (mass/volume) - 01/25/19 08:09 Serum or plasma troponin i.cardiac measurement (mass/v olume) < ng/mL <0.028 Fibrin D-dimer FEU measurement in platel et poor plasma (mass/volume) - 01/25/19 08:09 Fibrin D-dimer FEU measurement in platelet poor plasma (mass/volume) < ug/mL 0.00-0.49 Serum or plasma troponin i.cardiac measu rement (mass/volume) - 01/25/19 10:54 Serum or plasma troponin i.cardiac measurement (mass/v olume) < ng/mL <0.028 Capillary blood glucose measurement by g lucometer (mass/volume) - 01/25/19 11:45 Capillary blood glucose measurement by glucometer (mas s/volume) 99 mg/dL 70-110 Encounters ACCT No. Visit Date/Time Discharge Status Pt. Type Provider Facility Loc./Unit Complaint [id number] 02/05/2019 07:52:00 23:59:59 CLS Outpatient ARLEY HARDWICK MD [facility] CARD CHEST PAIN [id number] 01/25/2019 08:03:00 12:17:00 DIS Emergency PATRICIA DURHAM MD [facility] ER CHEST PAIN [id number] 11/29/2018 14:31:00 23:59:59 CLS Outpatient QUAN YEPEZ MD [facility] ONC [id number] 08/30/2018 14:44:00 00:01:00 DIS Outpatient QUAN YEPEZ MD [facility] ONC [id number] 07/28/2018 13:44:00 23:59:59 CLS Outpatient ARLEY HARDWICK MD [facility] CARD SOB,HTN [id number] 05/04/2018 14:59:00 019 00:01:00 DIS Outpatient QUAN YEPEZ MD [facility] ONC [id number] 09/07/2017 14:01:00 00:01:00 DIS Outpatient QUAN YEPEZ MD [facility] ONC [id number] 09/07/2017 14:06:00 23:59:59 CLS Outpatient ARLEY HARDWICK MD [facility] LAB [id number] 03/23/2017 14:22:00 018 00:01:00 DIS Outpatient QUAN YEPEZ MD [facility] ONC [id number] 05/23/2017 13:48:00 018 14:26:00 DIS Emergency KAUSHAL WHITING HUBER [facility] ER PARTIAL WENT THROUGH TO NGUE [id number] 12/09/2016 13:15:00 018 00:01:00 DIS Outpatient QUAN YEPEZ MD [facility] ONC [id number] 09/06/2016 10:15:00 017 00:01:00 DIS Outpatient QUAN YEPEZ MD [facility] ONC [id number] 09/13/2016 00:14:00 017 23:59:59 CLS Preadmit QUAN YEPEZ MD [facility] ONC [id number] 06/14/2016 09:04:00 017 00:01:00 DIS Outpatient QUAN YEPEZ MD [facility] ONC [id number] 09/06/2016 10:17:00 017 10:17:00 CAN Preadmit TUSHAR LY [facility] LAB [id number] 05/17/2016 09:49:00 017 00:01:00 DIS Outpatient QUAN YEPEZ MD [facility] ONC [id number] 05/05/2016 15:56:00 017 23:59:59 CLS Outpatient LE GUEVARA DO [facility] RAD WEIGHT LOSS, AB NORMAL LIVER TESTS [id number] 08/12/2015 14:20:00 016 23:59:59 CLS Outpatient QUAN YEPEZ MD [facility] ONC [id number] 02/04/2015 14:32:00 016 00:01:00 DIS Outpatient QUAN YEPEZ MD [facility] ONC [id number] 05/06/2014 09:45:00 015 00:01:00 DIS Outpatient QUAN YEPEZ MD [facility] ONC [id number] 07/26/2014 13:56:00 015 23:59:59 CLS Outpatient MULU ORTEGA, ARLEY Chaves [facility] CARD CP,DYSPNEA,HTN , [id number] 06/26/2014 08:22:00 015 23:59:59 CLS Outpatient LE GUEVARA DO [facility] RAD HX OF RUQ PAIN, [id number] 06/21/2014 10:57:00 015 23:59:59 CLS Outpatient LE GUEVARA DO [facility] RAD UNEXPLANED WIEG HT LOSS [id number] 06/21/2014 10:49:00 015 23:59:59 CLS Outpatient LE GUEVARA DO [facility] RAD UNEXPECTED WEIG HT LOSS [id number] 11/19/2013 09:58:00 014 00:01:00 DIS Outpatient QUAN YEPEZ MD [facility] ONC [id number] 08/28/2013 10:14:00 014 00:01:00 DIS Outpatient QUAN YEPEZ MD [facility] ONC [id number] 04/17/2013 13:57:00 014 23:59:59 CLS Outpatient QUAN YEPEZ MD [facility] ONC [id number] 12/06/2012 13:23:00 013 23:59:59 CLS Outpatient [id number] 09/06/2012 14:32:00 013 23:59:59 CLS Outpatient [id number] 06/26/2012 15:15:00 013 14:45:00 DIS Inpatient [id number] 02/26/2019 09:30:00 P EN Preadmit BELINDA ROMERO DO [facility] ENDO SCREENING/EPIGASTRIC ABD RENETTA N [id number] 02/19/2019 05:48:[address] Outpatient BELINDA ROMERO DO [facility] PREOP COLONOSCOPY/EGD [id number] 01/31/2019 13:57:00 Document Registration [id number] 09/30/2009 10:04:00 Document Registration [id number] 07/16/2009 10:22:00 Document Registration
[2019-02-22] MEDS ORDERED: FE F PO (09:57)
[2019-02-22] MEDS ORDERED: OMEP40CA27 PO (09:57)
== END 2019-01-25 12:17 | disposition home or self-care (01) ==
LOC: EDUNIT# 08:02 → ER 08:03
DX: R07.89 Other chest pain (principal); R10.13 Epigastric pain; I10 Essential (primary) hypertension; E11.9 Type 2 diabetes mellitus without complications; D64.9 Anemia, unspecified; K21.9 Gastro-esophageal reflux disease without esophagitis; Z86.711 Personal history of pulmonary embolism; Z79.82 Long term (current) use of aspirin; Z79.84 Long term (current) use of oral hypoglycemic drugs; Z87.891 Personal history of nicotine dependence; Z82.49 Family history of ischemic heart disease and other diseases of the circulatory system
CPT/HCPCS: 36415; 71045; 80053; 82962; 83690; 83735; 83874; 84484; 85025; 85379; 85610; 85730; 93005; 93041

== ENCOUNTER → 2019-02-05 | Outpatient (CLI) | payer MEDICARE, MEDICAID ==
[~2019-02-05] VITALS: Ht 157 cm; Wt 58.0 kg
[~2019-02-05] MED LIST changes: +CATHETER FLUSH 10 ML SYR IV PRN; +CHLO473M MM; -NFCHLORHGL MM; +OMEP20CA13 PO; +REGADENOSON 0.4 MG/5 ML SYR (LEXISCAN) IV ONE
[2019-02-05 10:10] VITALS: BP 106/85
--- NOTE | 2019-02-05 12:30 | STRESS TEST ---
DATE OF SERVICE: 02/05/2019 LEXISCAN MYOVIEW STRESS TEST REFERRING PHYSICIAN: Dr. Singh. Baseline heart rate is 67. Baseline blood pressure is 112/78. Baseline EKG is sinus rhythm with no ischemic changes. In summary, the patient was injected with 9.91 mCi of technetium-99 Myoview and the resting images were obtained. Then, the patient received 0.4 mg of Lexiscan followed by 29.2 mCi of technetium-99 Myoview. Throughout the test, there were no EKG changes. The resting and stress images were reviewed and compared in the short axis, horizontal long axis, and vertical long axis views. Review of the images showed good radiotracer uptake with no significant ischemia or infarction. SSS is 1, SDS 1, TID value 0.93. On the gated images, the left ventricle appeared to be in normal size with normal contractility. Calculated ejection fraction is 55%. CONCLUSION: 1. The patient tolerated Lexiscan well. 2. No ischemia or infarction on SPECT images. 3. Normal left ventricular size with normal contractility. Calculated ejection fraction is 55%. Job ID: [id number] DocumentID: [id number] Dictated Date: 02/05/2019 11:57:30 Airbrush Artist Technical Date: 02/05/2019 12:30:24 Dictated By: ARLEY HARDWICK MD
== END ==
LOC: CARD 07:52
PROVIDERS: ATTEND Internal Medicine Cardiovascular Disease
DX: E11.9 Type 2 diabetes mellitus without complications (principal); F79 Unspecified intellectual disabilities; R07.9 Chest pain, unspecified; Z86.711 Personal history of pulmonary embolism
CPT/HCPCS: 78452; 93017

== ENCOUNTER → 2019-02-19 | Outpatient (CLI) | payer MEDICARE, MEDICAID ==
[~2019-02-19] VITALS: Ht 172 cm; Wt 57.7 kg
[~2019-02-19] MED LIST changes: -CATHETER FLUSH 10 ML SYR IV PRN; -REGADENOSON 0.4 MG/5 ML SYR (LEXISCAN) IV ONE
== END | disposition home or self-care (01) ==
LOC: PREOP 05:48
PROVIDERS: ATTEND Surgery
DX: Z01.818 Encounter for other preprocedural examination (principal)

== ENCOUNTER → 2019-03-29 | Outpatient (CLI) | payer MEDICARE, MEDICAID ==
[~2019-03-29] MED LIST changes: +ACET-93 PO; +ASPI-586 PO; -CHLO473M MM; +FE F PO; +FLUT9.9S NS; +LORA10TA7 PO; +MAGN400O7 PO; +MULT-345 PO; +NFCHLORHGL MM; +OMEP-280 PO; -OMEP20CA13 PO; +OMEP40CA27 PO; +OMG1KC PO
== END ==
LOC: LAB 14:44
PROVIDERS: ATTEND Surgery
DX: Z01.89 Encounter for other specified special examinations (principal)
CPT/HCPCS: 36415; 87338

== ENCOUNTER 2019-04-20 16:33 | Emergency (ER) | payer MEDICARE, MEDICAID ==
[~2019-04-20] VITALS: Ht 157.4 cm; Wt 58.1 kg
[~2019-04-20 16:33] MED LIST changes: -OMEP-280 PO; +OMEP20CA18 PO
--- NOTE | 2019-04-20 16:43 | ED Chest Pain ---
General Chief Complaint: Chest Wall Stated Complaint: CHEST PAIN Source: patient Exam Limitations: no limitations History of Present Illness Date Seen by Provider: Apr 20, 2019 Time Seen by Provider: 16:40 Initial Comments To ER by EMS from home with reports of chest pain. This is central chest pain tender to palpation that began when he was "walking fast. 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 He ambulates from home to work every day. History of hypertension and diabetes. Severity/Quality: moderate Location: central Radiation: no radiation Activities at Onset: activity Modifying Factors: worse with movement, worse with palpation ASA po DIRECTOR OF PRIMARY: No NTG SL DIRECTOR OF PRIMARY: No Associated Symptoms: No shortness of breath Allergies and Home Medications Allergies Coded Allergies: No Known Drug Allergies (Unverified , 02/19/19) Home Medications Acetaminophen 500 Mg Tablet, 500 MG PO Q4H PRN for PAIN-MILD (1-4) OR TEMPATURE, (Reported) Aspirin 81 Mg Tablet.dr, 81 MG PO DAILY, (Reported) Fe Fumarate/Vit C/B12-If/FA 1 Each Capsule, 1 EACH PO BID, (Reported) Fluticasone Propionate 9.9 Ml [place].susp, 1 SPRAY NS DAILY, (Reported) 1 SPRAY EACH NARE DAILY Loratadine 10 Mg Tablet, 10 MG PO DAILY, (Reported) Magnesium Hydroxide 400 Mg/5 Ml Oral.susp, 400 MG PO BID PRN for CONSTIPATION- 1ST LINE, (Reported) Multivitamin 1 Each Tab.chew, 1 EACH PO DAILY, (Reported) [place] 3 Polyunsat Fatty Acids 1,000 Mg Cap, 1,000 MG PO TID, (Reported) Omeprazole 40 Mg Capsule.dr, 40 MG PO DAILY, (Reported) Patient Home Medication List Home Medication List Reviewed: Yes Review of Systems Review of Systems Constitutional: see HPI EENTM: No Symptoms Reported Respiratory: No Symptoms Reported Cardiovascular: See HPI, Chest Pain Gastrointestinal: No Symptoms Reported Genitourinary: No Symptoms Reported Musculoskeletal: no symptoms reported Skin: no symptoms reported Psychiatric/Neurological: No Symptoms Reported Endocrine: No Symptoms Reported Hematologic/Lymphatic: No Symptoms Reported Past Yodyyxv-Cirfen-Pddfjb Hx Patient Social History Former Smoker, Quit: Feb 11, 2015 2nd Hand Smoke Exposure: Yes Recent Foreign Travel: No Contact w/Someone Who Travel: No Recent Hopitalizations: No Immunizations Up To Date Date of Pneumonia Vaccine: Jan 29, 2008 Seasonal Allergies Seasonal Allergies: No Past Medical History Surgeries: Yes (BONE MARROW BIOPSY) Respiratory: Yes Pulmonary Embolism Cardiac: Yes Hypertension Neurological: No Reproductive Disorders: No Genitourinary: No Gastrointestinal: Yes Gastroesophageal Reflux Musculoskeletal: No Endocrine: Yes Diabetes, Non-Insulin dep HEENT: Yes (GLASSES) Loss of Vision: Denies Hearing Impairment: Denies Cancer: No Psychosocial: No Integumentary: No Blood Disorders: Yes (anemia) Adverse Reaction/Blood Tranf: No (N/A) Family Medical History Diabetes, Hypertension Physical Exam Vital Signs Vital Signs - First Documented 04/20/19 16:38 Temp 37.6 Pulse 87 Capillary Refill : Height, Weight, BMI Height: 5'7.00" Weight: 150lbs. oz. 68.010642lj; 19.50 BMI Method:Stated General Appearance: No Apparent Distress, WD/WN HEENT: PERRL/EOMI, TMs Normal Respiratory: Normal Breath Sounds, No Accessory Muscle Use, No Respiratory Distress Cardiovascular: Regular Rate, Rhythm, Normal Peripheral Pulses Gastrointestinal: Non Tender, Soft Neurologic/Psychiatric: Alert, Oriented x3 Skin: Normal Color, Warm/Dry Progress/Results/Core Measures Results/Orders Lab Results Laboratory Tests Test 04/20/19 16:40 04/20/19 18:21 Range/Units White Blood Count 3.1 L 4.3-11.0 10^3/uL Red Blood Count 4.00 L 4.35-5.85 10^6/uL Hemoglobin 13.1 L 13.3-17.7 G/DL Hematocrit 38 L 40-54 % Mean Corpuscular Volume 96 80-99 FL Mean Corpuscular Hemoglobin 33 25-34 PG Mean Corpuscular Hemoglobin Concent 34 32-36 G/DL Red Cell Distribution Width 12.6 10.0-14.5 % Platelet Count 143 130-400 10^3/uL Mean Platelet Volume 9.7 7.4-10.4 FL Neutrophils (%) (Auto) 49 42-75 % Lymphocytes (%) (Auto) 43 12-44 % Monocytes (%) (Auto) 7 0-12 % Eosinophils (%) (Auto) 1 0-10 % Basophils (%) (Auto) 0 0-10 % Neutrophils # (Auto) 1.5 L 1.8-7.8 X 10^3 Lymphocytes # (Auto) 1.3 1.0-4.0 X 10^3 Monocytes # (Auto) 0.2 0.0-1.0 X 10^3 Eosinophils # (Auto) 0.0 0.0-0.3 10^3/uL Basophils # (Auto) 0.0 0.0-0.1 10^3/uL Prothrombin Time 13.6 12.2-14.7 SEC INR Comment 1.0 0.8-1.4 Activated Partial Thromboplast Time 35 24-35 SEC Sodium Level 138 135-145 MMOL/L Potassium Level 4.5 3.6-5.0 MMOL/L Chloride Level 103 98-107 MMOL/L Carbon Dioxide Level 23 21-32 MMOL/L Anion Gap 12 5-14 MMOL/L Blood Urea Nitrogen 31 H 7-18 MG/DL Creatinine 1.33 H 0.60-1.30 MG/DL Estimat Glomerular Filtration Rate > 60 BUN/Creatinine Ratio 23 Glucose Level 108 H 70-105 MG/DL Calcium Level 9.6 8.5-10.1 MG/DL Corrected Calcium 9.3 8.5-10.1 MG/DL Magnesium Level 2.0 1.6-2.4 MG/DL Total Bilirubin 0.2 0.1-1.0 MG/DL Aspartate Amino Transf (AST/SGOT) 23 5-34 U/L Alanine Aminotransferase (ALT/SGPT) 18 0-55 U/L Alkaline Phosphatase 58 40-136 U/L Myoglobin 76.8 10.0-92.0 NG/ML Troponin I < 0.028 < 0.028 <0.028 NG/ML B-Type Natriuretic Peptide 20.4 <100.0 PG/ML Total Protein 7.0 6.4-8.2 GM/DL Albumin 4.4 3.2-4.5 GM/DL My Orders Orders - KAUSHAL WHITING REMEDIAL MASSEUR Cbc With Automated Diff (04/20/19 16:38) Magnesium (04/20/19 16:38) Chest 1 View, Ap/Pa Only (04/20/19 16:38) Ekg Tracing (04/20/19 16:38) Comprehensive Metabolic Panel (04/20/19 16:38) Myoglobin Serum (04/20/19 16:38) Protime With Inr (04/20/19 16:38) Partial Thromboplastin Time (04/20/19 16:38) O2 (04/20/19 16:38) Monitor-Rhythm Ecg Trace Only (04/20/19 16:38) Lipid Panel (04/21/19 06:00) Ed Iv/Invasive Line Start (04/20/19 16:38) BNP (04/20/19 16:38) Troponin I (04/20/19 16:38) Aspirin Chewable Tablet (Baby Aspirin Ch (04/20/19 16:45) Troponin I (04/20/19 18:13) Medications Given in ED Current Medications Medications Dose Ordered Sig/Devan Route Start Time Stop Time Status Last Admin Dose Admin Aspirin 324 mg ONCE ONCE PO 04/20/19 16:45 04/20/19 16:46 DC 04/20/19 16:49 324 MG Vital Signs/I&O 04/20/19 16:38 Temp 37.6 Pulse 87 B/P (MAP) Departure Impression Primary Impression: Chest wall pain Disposition: 01 HOME, SELF-CARE Condition: Stable Departure-Patient Inst. Decision time for Depature: 19:06 Referrals: LE GUEVARA DO (PCP/Family) Primary Care Physician Patient Instructions: Chest Pain (DC) KAUSHAL WHITING APRN Apr 20, 2019 16:43
[2019-04-20] MEDS ORDERED: ASPIRIN 81 MG CHEW (CHILDREN'S ASA) PO ONE (16:45)
[2019-04-20 16:54] LABS: BASOPHILS % (AUTO) 0 % (0-10); EOSINOPHILS % (AUTO) 1 % (0-10); HEMATOCRIT 38 % (40-54); HEMOGLOBIN 13.1 G/DL (13.3-17.7); LYMPHOCYTES # (AUTO) 1.3 X 10^3 (1.0-4.0); LYMPHOCYTES % (AUTO) 43 % (12-44); MEAN CORPUSCULAR HEMOGLOBIN 33 PG (25-34); MEAN CORPUSCULAR HGB CONC 34 G/DL (32-36); MEAN CORPUSCULAR VOLUME 96 FL (80-99); MEAN PLATELET VOLUME 9.7 FL (7.4-10.4); MONOCYTES # (AUTO) 0.2 X 10^3 (0.0-1.0); MONOCYTES % (AUTO) 7 % (0-12); NEUTROPHILS # (AUTO) 1.5 X 10^3 (1.8-7.8); NEUTROPHILS % (AUTO) 49 % (42-75); PLATELET COUNT 143 10^3/uL (130-400); RED CELL DISTRIBUTION WIDTH 12.6 % (10.0-14.5); WHITE BLOOD COUNT 3.1 10^3/uL (4.3-11.0)
[2019-04-20 17:01] LABS: PROTHROMBIN TIME PATIENT 13.6 SEC (12.2-14.7)
[2019-04-20 17:09] LABS: ALANINE AMINOTRANSFERASE 18 U/L (0-55); ALBUMIN 4.4 GM/DL (3.2-4.5); ALKALINE PHOSPHATASE 58 U/L (40-136); BILIRUBIN,TOTAL 0.2 MG/DL (0.1-1.0); BUN/CREATININE RATIO 23; CALCIUM 9.6 MG/DL (8.5-10.1); CARBON DIOXIDE 23 MMOL/L (21-32); CHLORIDE 103 MMOL/L (98-107); CREATININE SERUM 1.33 MG/DL (0.60-1.30); GFR ESTIMATED > 60; GLUCOSE 108 MG/DL (70-105); POTASSIUM 4.5 MMOL/L (3.6-5.0); SODIUM 138 MMOL/L (135-145)
--- NOTE | 2019-04-20 17:29 | Diagnostic Imaging Report ---
CHEST 1 VIEW, AP/PA ONLY Indication: Chest pain. Comparison: 02/04/2019 Findings: No focal airspace disease in the visualized lungs. Please note that the posterior lower lobes are poorly evaluated by portable radiography. No pleural effusion or pneumothorax. Normal cardiomediastinal silhouette. Impression: 1. No acute cardiopulmonary process by portable radiography. Dictated by: Dictated on workstation # [id number]
--- NOTE | 2019-04-20 18:57 | NUR ---
REPORT TO CHASE LASSITER AT THIS TIME.
[2019-04-20 19:17] VITALS: BP 128/72
== END 2019-04-20 19:17 | disposition home or self-care (01) ==
LOC: EDUNIT# 16:33 → ER 16:34
DX: R07.89 Other chest pain (principal); I10 Essential (primary) hypertension; E11.9 Type 2 diabetes mellitus without complications; D64.9 Anemia, unspecified; K21.9 Gastro-esophageal reflux disease without esophagitis; Z79.82 Long term (current) use of aspirin; Z79.51 Long term (current) use of inhaled steroids
CPT/HCPCS: 36415; 71045; 80053; 83735; 83874; 83880; 84484; 85025; 85610; 85730; 93005; 93041

== ENCOUNTER → 2019-08-07 | Outpatient (CLI) | payer MEDICARE, MEDICAID ==
[2019-08-07 15:06] LABS: BASOPHILS % (AUTO) 0 % (0-10); EOSINOPHILS % (AUTO) 1 % (0-10); HEMATOCRIT 39 % (40-54); HEMOGLOBIN 13.5 G/DL (13.3-17.7); LYMPHOCYTES # (AUTO) 1.5 X 10^3 (1.0-4.0); LYMPHOCYTES % (AUTO) 44 % (12-44); MEAN CORPUSCULAR HEMOGLOBIN 33 PG (25-34); MEAN CORPUSCULAR HGB CONC 35 G/DL (32-36); MEAN CORPUSCULAR VOLUME 95 FL (80-99); MEAN PLATELET VOLUME 8.8 FL (7.4-10.4); MONOCYTES # (AUTO) 0.2 X 10^3 (0.0-1.0); MONOCYTES % (AUTO) 7 % (0-12); NEUTROPHILS # (AUTO) 1.7 X 10^3 (1.8-7.8); NEUTROPHILS % (AUTO) 48 % (42-75); PLATELET COUNT 141 10^3/uL (130-400); RED CELL DISTRIBUTION WIDTH 12.7 % (10.0-14.5); WHITE BLOOD COUNT 3.4 10^3/uL (4.3-11.0)
[2019-08-07 15:22] LABS: ALANINE AMINOTRANSFERASE 23 U/L (0-55); ALBUMIN 4.3 GM/DL (3.2-4.5); ALKALINE PHOSPHATASE 55 U/L (40-136); BILIRUBIN,TOTAL 0.4 MG/DL (0.1-1.0); BUN/CREATININE RATIO 17; CALCIUM 9.5 MG/DL (8.5-10.1); CARBON DIOXIDE 26 MMOL/L (21-32); CHLORIDE 104 MMOL/L (98-107); CREATININE SERUM 1.32 MG/DL (0.60-1.30); GFR ESTIMATED > 60; GLUCOSE 107 MG/DL (70-105); POTASSIUM 4.1 MMOL/L (3.6-5.0); SODIUM 140 MMOL/L (135-145)
== END ==
LOC: EDSTATUS 02-28 09:37 → ONC 14:50
PROVIDERS: ATTEND Internal Medicine Hematology & Oncology
DX: D61.818 Other pancytopenia (principal); D72.819 Decreased white blood cell count, unspecified; D64.9 Anemia, unspecified; E11.9 Type 2 diabetes mellitus without complications; I10 Essential (primary) hypertension; E78.2 Mixed hyperlipidemia; Z86.711 Personal history of pulmonary embolism; Z86.718 Personal history of other venous thrombosis and embolism
CPT/HCPCS: 80053; 82728; 83540; 85025; 99213

== ENCOUNTER → 2020-11-11 | Outpatient (CLI) | payer MEDICAID, MEDICARE ==
[~2020-11-11] MED LIST changes: -OMEP40CA27 PO; +OMEP40CA6 PO
== END ==
LOC: CARD 14:30
PROVIDERS: ATTEND Internal Medicine Cardiovascular Disease
DX: I10 Essential (primary) hypertension (principal); I25.10 Atherosclerotic heart disease of native coronary artery without angina pectoris
CPT/HCPCS: 93306

== ENCOUNTER → 2021-02-27 | Outpatient (CLI) | payer MEDICARE, MEDICAID ==
--- NOTE | 2021-02-27 13:21 | Diagnostic Imaging Report ---
EXAMINATION: Left hip unilateral 2 or 3 views (w/pelvis when done) HISTORY: Left hip pain COMPARISON: None available. FINDINGS: There is mild left hip osteoarthritis. No acute fracture. Alignment is normal. IMPRESSION: 1. Mild left hip joint osteoarthritis. Dictated by: Dictated on workstation # [id number]
== END ==
LOC: RAD 12:14
PROVIDERS: ATTEND Nurse Practitioner Family
DX: M16.12 Unilateral primary osteoarthritis, left hip (principal)
CPT/HCPCS: 73502

== ENCOUNTER 2021-04-09 19:18 | Emergency (ER) | payer MEDICARE, MEDICAID ==
--- NOTE | 2021-04-09 19:40 | ED Head Injury ---
General Chief Complaint: Head/Cervical Problems Stated Complaint: HEAD INJURY Source: patient, caregiver Exam Limitations: no limitations (KAUSHAL WHITING APRN) History of Present Illness Date Seen by Provider: Apr 09, 2021 Time Seen by Provider: 19:38 Initial Comments To ER with reports of a head injury. He was sitting at the table playing some games when he fell asleep and hit his forehead on the table. No loss of consciousness he denies headache dizziness nausea vomiting now or at any time. He is on a baby aspirin daily. He is intellectually disabled and a resident of [place]. They want him to be evaluated. He denies any neck pain. Occurred: just prior to arrival Severity: mild Location: frontal Method of Injury: direct blow Loss of Consciousness: no loss of consciousness Associated Systoms: Denies Symptoms (KAUSHAL WHITING APRN) Allergies and Home Medications Allergies Coded Allergies: No Known Drug Allergies (Unverified , 02/19/19) Patient Home Medication List Home Medication List Reviewed: Yes (KAUSHAL WHITING APRN) Acetaminophen (Acetaminophen) 500 Mg Tablet, 500 MG PO Q4H PRN for PAIN-MILD (1- 4) OR TEMPATURE, (Reported) Entered as Reported by: BHAVIN OLVERA on 02/22/19 09 Aspirin (Aspir 81) 81 Mg Tablet.dr, 81 MG PO DAILY, (Reported) Entered as Reported by: BHAVIN OLVERA on 02/22/19956 Fe Fumarate/Vit C/B12-If/FA (Ferocon Capsule) 1 Each Capsule, 1 EACH PO BID, (Reported) Entered as Reported by: BHAVIN OLVERA on 02/22/19956 Fluticasone Propionate (Flonase Allergy Relief) 9.9 Ml [place].susp, 1 SPRAY NS DAILY, (Reported) Entered as Reported by: BHAVIN OLVERA on 02/22/19956 Loratadine (Loratadine) 10 Mg Tablet, 10 MG PO DAILY, (Reported) Entered as Reported by: BHAVIN OLVERA on 02/22/19956 Magnesium Hydroxide (Milk of Magnesia) 400 Mg/5 Ml Oral.susp, 400 MG PO BID PRN for CONSTIPATION-1ST LINE, (Reported) Entered as Reported by: BHAVIN OLVERA on 02/22/19 09 Multivitamin (Animal Chews) 1 Each Tab.chew, 1 EACH PO DAILY, (Reported) Entered as Reported by: BHAVIN OLVERA on 02/22/19 09 [place] 3 Polyunsat Fatty Acids (Fish Oil 1,000 mg Capsule) 1,000 Mg Cap, 1,000 MG PO TID, (Reported) Entered as Reported by: BHAVIN OLVERA on 02/22/19956 Omeprazole (Omeprazole) 40 Mg Capsule.dr, 40 MG PO DAILY, (Reported) Entered as Reported by: BHAVIN OLVERA on 02/22/19 09 Review of Systems Review of Systems Constitutional: see HPI Eyes: No Symptoms Reported Ears, Nose, Mouth, Throat: no symptoms reported Respiratory: no symptoms reported Cardiovascular: no symptoms reported Genitourinary: no symptoms reported Musculoskeletal: no symptoms reported Skin: no symptoms reported Psychiatric/Neurological: No Symptoms Reported Endocrine: No Symptoms Reported (KAUSHAL WHITING APRN) Past Ibuugfx-Ootavm-Vgxjac Hx Seasonal Allergies Seasonal Allergies: No (KAUSHAL WHITING APRN) Past Medical History Surgeries: Yes (BONE MARROW BIOPSY) Respiratory: Yes Pulmonary Embolism Cardiac: Yes Hypertension Neurological: No Reproductive Disorders: No Genitourinary: No Gastrointestinal: Yes Gastroesophageal Reflux Musculoskeletal: No Endocrine: Yes Diabetes, Non-Insulin dep HEENT: Yes (GLASSES) Loss of Vision: Denies Hearing Impairment: Denies Cancer: No Psychosocial: No Integumentary: No Blood Disorders: Yes (anemia) Adverse Reaction/Blood Tranf: No (N/A) (KAUSHAL WHITING APRN) Family Medical History Diabetes, Hypertension (KAUSHAL WHITING APRN) Physical Exam Vital Signs Vital Signs - First Documented 04/09/21 19:27 Temp 35.8 Pulse 70 Resp 18 B/P (MAP) 123/87 (99) Pulse Ox 99 O2 Delivery Room Air (STEFANIA PEARCE MD) Vital Signs Capillary Refill : (KAUSHAL WHITING APRN) Height, Weight, BMI Height: 5'7.00" Weight: 150lbs. oz. [id number]; 23.00 BMI Method:Stated General Appearance: WD/WN, no apparent distress HEENT: PERRL/EOMI, normal ENT inspection, other (Small abrasion to the right side of the forehead. No depressed skull fracture.) Neck: non-tender, full range of motion Respiratory: no respiratory distress, no accessory muscle use Gastrointestinal: normal bowel sounds, non tender, soft Extremities: normal range of motion, non-tender Psychiatric: alert, oriented x 3 Skin: normal color, warm/dry (KAUSHAL WHITING APRN) Progress/Results/Core Measures Results/Orders Vital Signs/I&O 04/09/21 04/09/21 19:27 19:44 Temp 35.8 35.8 Pulse 70 70 Resp 18 18 B/P (MAP) 123/87 (99) 123/87 Pulse Ox 99 99 O2 Delivery Room Air Room Air (STEFANIA PEARCE MD) Departure Communication (Admissions) No indication for head CT at this time (KAUSHAL WHITING APRN) Impression Primary Impression: Forehead abrasion Disposition: 01 HOME, SELF-CARE Condition: Stable Departure-Patient Inst. Decision time for Depature: 19:39 (KAUSHAL WHITING APRN) Referrals: LE GUEVARA DO (PCP/Family) Primary Care Physician Patient Instructions: Abrasions ED Add. Discharge Instructions: 1. Return to ER for any vomiting, severe headache or confusion or abnormal behavior. Otherwise follow-up with primary care as needed. All discharge instructions reviewed with patient and/or family. Voiced understanding. ATTENDING PHYSICIAN NOTE: I was physically present as attending physician in the emergency department during the care of this patient, but I was not directly involved in the decision making or delivery of care for this patient. (STEFANIA PEARCE MD) KAUSHAL WHITING APRN Apr 09, 2021 19:40 STEFANIA PEARCE MD Apr 10, 2021 06:45
[2021-04-09 19:44] VITALS: BP 123/87
== END 2021-04-09 19:44 | disposition home or self-care (01) ==
LOC: EDUNIT# 19:18 → ER 19:20
DX: S00.81XA Abrasion of other part of head, initial encounter (principal); I10 Essential (primary) hypertension; K21.9 Gastro-esophageal reflux disease without esophagitis; E11.9 Type 2 diabetes mellitus without complications; Z79.82 Long term (current) use of aspirin; W22.8XXA Striking against or struck by other objects, initial encounter
CPT/HCPCS: 99281

== ENCOUNTER 2022-03-31 05:34 | Outpatient (CLI) | payer MEDICARE, MEDICAID ==
[~2022-03-31] VITALS: Ht 157.5 cm; Wt 57.2 kg
[2022-03-31] MEDS ORDERED: [UNRECOGNIZED DRUG - CODE] TP (16:32)
[2022-03-31] MEDS ORDERED: PEDI18TA7 PO (16:32)
[2022-03-31] MEDS ORDERED: PANT40TA52 PO (16:32)
== END 2022-03-31 16:35 ==
LOC: PREOP 05:34
PROVIDERS: ATTEND Surgery
DX: Z01.818 Encounter for other preprocedural examination (principal)

== ENCOUNTER 2022-04-12 07:06 | Day surgery (SDC) | payer MEDICARE, MEDICAID ==
[~2022-04-12] VITALS: Ht 157.5 cm; Wt 57.2 kg
[~2022-04-12 07:06] MED LIST changes: +PANT40TA52 PO; +PEDI18TA7 PO; +[UNRECOGNIZED DRUG - CODE] TP
[2022-04-12] MEDS ORDERED: LACTATED RINGERS 1,000 ML IV STA (07:23)
[2022-04-12] MEDS ORDERED: HURRICAINE EXT TUBE (BENZOCAINE) XX PRN (07:30)
[2022-04-12 07:35] VITALS: BP 124/75
[2022-04-12] MEDS ORDERED: PROPOFOL INJECTION 50 ML IV ONE (07:37)
[2022-04-12 09:10] VITALS: BP 98/66
--- NOTE | 2022-04-12 09:10 | Anesthesia-General Post-Op ---
MAC Patient Condition Mental Status/LOC: Same as Preop Cardiovascular: Satisfactory Nausea/Vomiting: Absent Respiratory: Satisfactory Pain: Controlled Complications: Absent Post Op Complications Complications None Follow Up Care/Instructions Patient Instructions None needed. Anesthesiology Discharge Order Discharge Order Patient is doing well, no complaints, stable vital signs, no apparent adverse anesthesia problems. No complications reported per nursing. PARVEEN KUO CRNA Apr 12, 2022 09:10
[2022-04-12 09:15] VITALS: BP 103/69
--- NOTE | 2022-04-12 09:18 | Progress Note-Post Operative ---
Post-Operative Progess Note Surgeon (s)/Customer Agent (s) Surgeon BELINDA ROMERO DO Customer Agent: Sherman Rand MSIII Pre-Operative Diagnosis Screening Colonoscopy, Chronic Gastritis Post-Operative Diagnosis Gastritis ??Rosa Polyp Int hemorrhoids Procedure & Operative Findings Date of Procedure 04/12/22 Procedure Performed/Findings EGD with bx Colonoscopy with snare PROCEDURE NOTE: After informed consent was obtained, the patient was brought to the endoscopy suite, placed in bed in left lateral decubitus position. He was administered IV sedation by the EFFICIENCY MINER who then monitored vitals the entire time, heart rate, blood pressure and pulse ox and the scope was inserted down the mouth through the esophagus into the stomach. On the way down, noted something that looked like Rosa and took a picture. Pushed into the stomach, pushed past the antrum into the duodenum; duodenum looked good. Pulled back and did a biopsy of the antrum, then retroflexed the scope, did not see a hiatal hernia, took a picture of this and then pulled the scope into the GE junction. I had actually take a biopsy of the GE junction from in the stomach and got a piece of suspected Rosa to send to pathology. Pushed the scope back into the stomach, suctioned all the air out of the stomach. At this point pulled the scope up the esophagus and out the mouth. Switched camera, switched gloves, went down below and started the colonoscopy. Pushed all the way to about 150 cm and pushed into the cecum, took a picture of appendiceal orifice and noted the ileocecal valve. Then slowly withdrew the scope insufflating to look circumferentially at the mercado starting in the cecum, up the ascending colon to the hepatic flexure, then down the transverse colon, splenic flexure, into the descending colon down in the sigmoid and then into the rectum. Found a polyp and removed it with snare polypectomy. Finally, retroflexed the scope, took picture of the internal hemorrhoids. The patient tolerated the procedure and he recovered in the endoscopy suite. Recommended for repeat colonoscopy in 5 years Anesthesia Type IV sedation by EFFICIENCY MINER Estimated Blood Loss Estimated blood loss (mL): scant Specimens/Packing Specimens Removed antral bx GE jxn bx Rectal polyp BELINDA ROMERO DO Apr 12, 2022 09:18
--- NOTE | 2022-04-12 09:19 | Endoscopy Discharge Instruct ---
Endo Procedure/Findings Findings 1.: Gastritis 2.: Polyp 3.: Internal Hemorrhoids Discharge Instructions - Activity: You might feel a little sleepy until tomorrow. This is due to the medicine you received to relax you. Until tomorrow, you should: NOT drive a car, operate machinery or power tools. NOT drink any alcoholic beverages. NOT make any important decisions or sign importortant papers. Do not return to work until tomorrow, unless otherwise instructed. Resume previous activities tomorrow. Diet: Start by taking liquids. If you tolerate liquids, advance to solid food. 1.: EGD in 3 years 2.: Colonscopy in 5 years Notify Physician - If you experience excessive bleeding, unusual abdominal pain, fever, or chest pain, contact your doctor immediately. BELINDA ROMERO DO Apr 12, 2022 09:19
[2022-04-12 09:20] VITALS: BP 112/68
[2022-04-12 09:37] VITALS: BP 112/68
== END 2022-04-12 09:52 | disposition home or self-care (01) ==
LOC: ENDO 07:06
PROVIDERS: ATTEND Surgery
DX: Z12.11 Encounter for screening for malignant neoplasm of colon (principal); K29.50 Unspecified chronic gastritis without bleeding; D12.8 Benign neoplasm of rectum; B37.81 Candidal esophagitis; K64.8 Other hemorrhoids; Z86.010 Personal history of colon polyps
CPT/HCPCS: 87101

== ENCOUNTER 2022-05-19 05:48 | Outpatient (CLI) | payer MEDICARE, MEDICAID ==
[~2022-05-19] VITALS: Ht 157.5 cm; Wt 57.2 kg
[2022-05-19] MEDS ORDERED: ASPI-999 PO (10:05)
[2022-05-19] MEDS ORDERED: OMEG1CAP58 PO (10:05)
== END 2022-05-19 10:13 | disposition home or self-care (01) ==
LOC: PREOP 05:48
PROVIDERS: ATTEND Surgery
DX: Z01.818 Encounter for other preprocedural examination (principal); B37.81 Candidal esophagitis

== ENCOUNTER 2022-05-31 08:12 | Day surgery (SDC) | payer MEDICARE, MEDICAID ==
[2022-05-31] VITALS (9 sets, daily range): BP systolic 98–127; BP diastolic 56–86
[~2022-05-31] VITALS: Ht 157.5 cm; Wt 57.2 kg
[~2022-05-31 08:12] MED LIST changes: +ASPI-999 PO; +OMEG1CAP58 PO
[2022-05-31] MEDS ORDERED: LACTATED RINGERS 1,000 ML IV STA (08:16)
--- NOTE | 2022-05-31 08:29 | Progress Note-Pre Operative ---
Pre-Operative Progress Note Date of Available H&P: May 18, 2022 Date H&P Reviewed: May 31, 2022 Time H&P Reviewed: 08:22 History & Physical: H&P Reviewed, Patient Examed, No changes noted Pre-Operative Diagnosis: Esophageal Candidiasis BELINDA ROMERO DO May 31, 2022 08:29
[2022-05-31] MEDS ORDERED: HURRICAINE EXT TUBE (BENZOCAINE) XX PRN (08:30)
[2022-05-31] MEDS ORDERED: PROPOFOL INJECTION 50 ML IV ONE (09:10)
[2022-05-31] MEDS ORDERED: MIDAZOLAM 2 MG/2 ML (VERSED) VIAL ONE (09:10)
--- NOTE | 2022-05-31 09:23 | Progress Note-Post Operative ---
Post-Operative Progess Note Surgeon (s)/Waiter/Waitress Dining Car (s) Surgeon BELINDA ROMERO DO Waiter/Waitress Dining Car: none Pre-Operative Diagnosis Esophageal Candidiasis Post-Operative Diagnosis small sliding hiatal hernia Procedure & Operative Findings Date of Procedure 05/31/22 Procedure Performed/Findings EGD PROCEDURE NOTE: After informed consent was obtained, the patient was brought to the endoscopy suite, placed in bed in left lateral decubitus position. He was administered IV sedation by the CAMERA REPAIRER who then monitored vitals the entire time, heart rate, blood pressure and pulse ox and the scope was inserted down the mouth through the esophagus into the stomach. On the way down, did not see any signs of the previous Candidiasis, took a picture and pushed into the stomach. Pushed past the antrum into the duodenum. Duodenum looked good. Pulled back and then retroflexed the scope, saw very small sliding hiatal hernia. I took a picture of this and then pulled the scope into the GE junction and then took another picture of the esophagus; no candidiasis. Pushed the scope back into the stomach, suctioned all the air out of the stomach. At this point pulled the scope up the esophagus and out the mouth. The patient tolerated the procedure, and he recovered in endoscopy suite. Anesthesia Type IV sedation by CAMERA REPAIRER Estimated Blood Loss Estimated blood loss (mL): none Specimens/Packing Specimens Removed none BELINDA ROMERO DO May 31, 2022 09:23
--- NOTE | 2022-05-31 09:24 | Endoscopy Discharge Instruct ---
Endo Procedure/Findings Findings 1.: Hiatal Hernia Discharge Instructions - Activity: You might feel a little sleepy until tomorrow. This is due to the medicine you received to relax you. Until tomorrow, you should: NOT drive a car, operate machinery or power tools. NOT drink any alcoholic beverages. NOT make any important decisions or sign importortant papers. Do not return to work until tomorrow, unless otherwise instructed. Resume previous activities tomorrow. Diet: Start by taking liquids. If you tolerate liquids, advance to solid food. 1.: EGD in 3 years Notify Physician - If you experience excessive bleeding, unusual abdominal pain, fever, or chest pain, contact your doctor immediately. Follow-Up: Other Follow up in my office in a week BELINDA ROMERO DO May 31, 2022 09:24
--- NOTE | 2022-05-31 13:16 | Anesthesia-General Post-Op ---
MAC Patient Condition Mental Status/LOC: Same as Preop Cardiovascular: Satisfactory Nausea/Vomiting: Absent Respiratory: Satisfactory Pain: Controlled Complications: Absent Post Op Complications Complications None Follow Up Care/Instructions Patient Instructions None needed. Anesthesiology Discharge Order Discharge Order Patient is doing well, no complaints, stable vital signs, no apparent adverse anesthesia problems. No complications reported per nursing. JULIO C JAMES CRNA May 31, 2022 13:16
== END 2022-05-31 10:33 | disposition home or self-care (01) ==
LOC: ENDO 08:12
PROVIDERS: ATTEND Surgery
DX: K44.9 Diaphragmatic hernia without obstruction or gangrene (principal); Z87.891 Personal history of nicotine dependence